=== PATIENT | male | born 1930 | race Caucasian/White ===

== ENCOUNTER → 2016-11-03 | Outpatient (CLI) | payer BC ==
[~2016-11-03] MED LIST: ALBU0.08 INH; ASPI81TA25 PO; ATEN-173 PO; BRIN1SUS OPR; CETI10TA10 PO; CLC100 PO; CZR50 PO; DLD2 PO; FLM4 PO; FURO40TA3 PO; MOME100A INH; MRLP17X PO; MULT-506 PO; POTA-327 PO; RXC5 PO; SIMV10TA2 PO; TRVOPS OPR; VANC1INJ10 IV.
[2016-11-03 13:43] LABS: BLOOD UREA NITROGEN 29 mg/dl (7-18); BUN/CREATININE RATIO 15.1 (10-20); CALCIUM 9.4 mg/dl (8.5-10.1); CARBON DIOXIDE 26 mmol/L (21-32); CHLORIDE 107 mmol/L (98-107); GLUCOSE 96 mg/dl (70-99); MAGNESIUM 2.4 mg/dl (1.8-2.4); POTASSIUM 4.6 mmol/L (3.5-5.1); SODIUM 140 mmol/L (136-145)
== END | disposition home or self-care (01) ==
LOC: C.LABPVFM 08:30
PROVIDERS: ATTEND Family Medicine
DX: N18.3 Chronic kidney disease, stage 3 (moderate) (principal)

== ENCOUNTER → 2016-11-17 | Outpatient (CLI) | payer BC ==
--- NOTE | 2016-11-17 12:37 | DIAGNOSTIC IMAGING REPORT ---
Soft tissue neck ULTRASOUND HISTORY: Mass HX MALIGNANT Melanoma, actinic Keratosis, neoplasm COMPARISON: None. FINDINGS: Ultrasound of the posterior neck is performed site of clinically palpable abnormality. No ultrasonic abnormalities are identified IMPRESSION: Normal soft tissue ultrasound. No evidence for mass or collection by ultrasound criteria Electronically signed by: Reece Silva M.D. 11/17/2016 12:36 PM Dictated Date/Time: 11/17/2016 12:34 PM
== END | disposition home or self-care (01) ==
LOC: C.ULTR 11:59
PROVIDERS: ATTEND Dermatology
DX: Z85.820 Personal history of malignant melanoma of skin (principal); L57.0 Actinic keratosis; D48.5 Neoplasm of uncertain behavior of skin

== ENCOUNTER → 2017-01-19 | Outpatient (CLI) | payer BC ==
[~2017-01-19] MED LIST changes: -DLD2 PO; +HYDR2TAB3 PO
[2017-01-19 13:11] LABS: ALT/SGPT 39 U/L (12-78); BLOOD UREA NITROGEN 42 mg/dl (7-18); BUN/CREATININE RATIO 21.2 (10-20); CARBON DIOXIDE 23 mmol/L (21-32); CHLORIDE 107 mmol/L (98-107); GLUCOSE 121 mg/dl (70-99); POTASSIUM 4.5 mmol/L (3.5-5.1); SODIUM 139 mmol/L (136-145)
[2017-01-19 13:14] LABS: ALB/GLOB RATIO 0.9 (0.9-2); ALKALINE PHOSPHATASE 138 U/L (45-117); AST/SGOT 33 U/L (15-37)
[2017-01-19 13:34] LABS: CALCIUM 8.9 mg/dl (8.5-10.1)
== END | disposition home or self-care (01) ==
LOC: C.LABPVFM 07:47
PROVIDERS: ATTEND Internal Medicine Nephrology
DX: I10 Essential (primary) hypertension (principal); N18.3 Chronic kidney disease, stage 3 (moderate); E87.1 Hypo-osmolality and hyponatremia; E78.00 Pure hypercholesterolemia, unspecified

== ENCOUNTER → 2017-03-06 | Outpatient (CLI) | payer BC ==
[~2017-03-06] MED LIST changes: +DLD2 PO; -HYDR2TAB3 PO
--- NOTE | 2017-03-06 12:02 | DIAGNOSTIC IMAGING REPORT ---
CHEST 2 VIEWS ROUTINE CLINICAL HISTORY: Cough. Bilateral rales. COMPARISON STUDY: 01/04/2016 FINDINGS: The heart is mildly enlarged. There is mild elevation/eventration of the right hemidiaphragm. There is no failure. There is no focal pulmonary consolidation. There are no pleural effusions. Left axillary calcifications are again evident.[ IMPRESSION: No active disease in the chest. Electronically signed by: Julio C Childs M.D. 03/06/2017 12:01 PM Dictated Date/Time: 03/06/2017 12:00 PM
== END | disposition home or self-care (01) ==
LOC: C.RADPV 11:45
PROVIDERS: ATTEND Neuromusculoskeletal Medicine & OMM
DX: R09.89 Other specified symptoms and signs involving the circulatory and respiratory systems (principal); R05 Cough; J22 Unspecified acute lower respiratory infection

== ENCOUNTER → 2017-04-06 | Outpatient (CLI) | payer BC ==
[2017-04-06 12:24] LABS: BASO % 0.4 %; BASO ABS # 0.03 K/uL (0-0.2); COMPLETE YES; EOS % 4.7 %; HEMATOCRIT 44.2 % (42-52); IG% 0.3 %; LYMPH ABS # 1.82 K/uL (1.2-3.4); MEAN CELL VOLUME 99.5 fL (80-100); MEAN CORPUSCULAR HEMOGLOBIN 31.8 pg (25-34); MEAN CORPUSCULAR HGB CONC 31.9 g/dl (32-36); MONO % 9.8 %; NEUT % 58.8 %; PLATELET COUNT 290 K/uL (130-400); RED BLOOD COUNT 4.44 M/uL (4.7-6.1); WHITE BLOOD COUNT 7.01 K/uL (4.8-10.8)
[2017-04-06 13:13] LABS: URINE PROTIEN/CREAT RATIO 0.2 (0-0.2); URINE TOTAL PROTEIN 13.4 mg/dl (0-11.9)
[2017-04-06 13:19] LABS: BLOOD UREA NITROGEN 23 mg/dl (7-18); BUN/CREATININE RATIO 14.3 (10-20); CALCIUM 8.8 mg/dl (8.5-10.1); CARBON DIOXIDE 23 mmol/L (21-32); CHLORIDE 102 mmol/L (98-107); GLUCOSE 116 mg/dl (70-99); MAGNESIUM 2.4 mg/dl (1.8-2.4); PHOSPHORUS 3.8 mg/dl (2.5-4.9); POTASSIUM 4.5 mmol/L (3.5-5.1); SODIUM 131 mmol/L (136-145)
== END | disposition home or self-care (01) ==
LOC: C.LABPVFM 08:28
PROVIDERS: ATTEND Internal Medicine Nephrology
DX: N18.3 Chronic kidney disease, stage 3 (moderate) (principal)

== ENCOUNTER → 2017-08-03 | Outpatient (CLI) | payer BC ==
[~2017-08-03] MED LIST changes: -DLD2 PO; +HYDR2TAB3 PO
[2017-08-03 13:48] LABS: BLOOD UREA NITROGEN 36 mg/dl (7-18); BUN/CREATININE RATIO 18.6 (10-20); CALCIUM 8.6 mg/dl (8.5-10.1); CARBON DIOXIDE 25 mmol/L (21-32); CHLORIDE 103 mmol/L (98-107); CREATININE 1.95 mg/dl (0.60-1.40); GLUCOSE 128 mg/dl (70-99); MAGNESIUM 2.4 mg/dl (1.8-2.4); POTASSIUM 4.8 mmol/L (3.5-5.1); SODIUM 134 mmol/L (136-145)
[2017-08-03 13:49] LABS: PHOSPHORUS 4.3 mg/dl (2.5-4.9)
== END | disposition home or self-care (01) ==
LOC: C.LABPVFM 08:52
PROVIDERS: ATTEND Internal Medicine Nephrology
DX: N18.4 Chronic kidney disease, stage 4 (severe) (principal)

== ENCOUNTER 2020-05-07 14:48 | Inpatient (IN) ==
[2020-05-07] MEDS ORDERED: MoRPHine SULFATE 4 MG/ML 1 ML CARP\\VIAL IV PRN (15:07)
[2020-05-07] MEDS ORDERED: SODIUM CHLORIDE 0.9% 500 ML IV ONE (15:07)
[2020-05-07] MEDS ORDERED: ONDANSETRON INJ 2 MG/ML 2 ML VIAL IV STA (15:07)
--- NOTE | 2020-05-07 15:16 | Emergency Department Note ---
History of Present Illness General Chief complaint: Flank Pain Stated complaint: RT FLANK PAIN Time Seen by Provider: 05/07/20 14:57 History of Present Illness Maximum Pain Intensity: 9 89-year-old male who was referred to the emergency department by his household chores (Dr. Wolf) for evaluation of severe right flank pain. The patient has a history of stage III chronic kidney disease. He denies history of kidney stones. The patient reports that he has had intermittent pain for the past month, but the pain has worsened and become more constant over the past week. He denies any fever or chills, nausea, abdominal pain, chest pain or shortness of breath. The patient denies any alleviating or aggravating factors for the pain. The daughter reports that his urine has looked darker than usual. He denies any urinary frequency or urgency. The patient reports that he has had a poor appetite as well. He rates his discomfort a 9 out of 10. Home Medications Home Medications Medication Instructions Recorded Confirmed Type aspirin 81 mg tablet,delayed 81 mg PO DAILY 04/03/19 05/07/20 History release travoprost 0.004 % eye drops 1 drops OPR QPM 04/04/19 05/07/20 History albuterol sulfate 90 mcg/actuation 1 - 2 puffs INHALATION QAM PRN #1 07/15/19 05/07/20 History aerosol inhaler gm Azopt 1 drp OPHTHALMIC (EYE) BID 09/05/19 05/07/20 History docusate sodium [Stool Softener] 100 mg PO QPM PRN 09/05/19 05/07/20 History losartan 50 mg PO QAM 09/05/19 05/07/20 History ipratropium 0.5 mg-albuterol 3 mg 3 ml INH QID #360 ml 11/04/19 05/07/20 Rx (2.5 mg base)/3 mL nebulization soln tramadol 50 mg tablet 50 mg PO Q6H PRN #30 tab 11/13/19 05/07/20 Rx atenolol 25 mg tablet 25 mg PO HS #90 tab 11/19/19 05/07/20 Rx furosemide 80 mg tablet 80 mg PO QAM #180 tab 11/19/19 05/07/20 Rx trazodone 50 mg tablet 50 mg PO HS #90 tab 12/13/19 05/07/20 Rx linaclotide 290 mcg capsule 290 mcg PO DAILY #30 cap 03/18/20 05/07/20 Rx citalopram 10 mg tablet 10 mg PO DAILY #30 tab 04/06/20 05/07/20 Rx furosemide 40 mg tablet 40 mg PO QAM #90 tab 04/08/20 05/07/20 Rx simvastatin 10 mg tablet 10 mg PO HS #90 tab 05/05/20 05/07/20 Rx calcitriol 0.5 mcg PO 3XWK 05/07/20 05/07/20 History Allergies Allergy/AdvReac Type Severity Reaction Status Date / Time alfuzosin [From Uroxatral] Allergy PENILE Verified 05/07/20 19:28 SWELLING gabapentin [From Neurontin] AdvReac Severe fluid Verified 05/07/20 14:15 retention latex AdvReac Unknown RED PLUMMER Verified 05/07/20 14:15 ON SKIN Past Med/Surg History Medical History Balance problem uses walker Balanitis Basal cell carcinoma of skin of face HX OF Chronic diastolic CHF (congestive heart failure) Chronic kidney disease, stage IV (severe) under surveillance; baseline creatinine 2-2.3 range History of basal cell carcinoma History of glaucoma History of neoplasm of uncertain behavior of skin History of pneumonia Hx of cataract Hypercholesterolemia Hyponatremia HISTORY OF Malignant melanoma of back Restrictive lung disease Secondary hyperparathyroidism Surgical History History of back surgery MULTIPLE, + FUSION HX History of bilateral knee arthroplasty History of carpal tunnel surgery of left wrist History of carpal tunnel surgery of right wrist History of colonoscopy History of repair of left rotator cuff History of repair of right rotator cuff History of repair of rotator cuff History of shoulder surgery History of surgical procedure Hand incision tendon sheath of a finger History of tonsillectomy S/P cervical spinal fusion 09/16/19 Dr. Kip Toney- #1 anterior cervical discectomy with bilateral foraminotomies C3 and C4. #2 anterior cervical arthrodesis C3-C4. #3 placement of Spira 8 mm cage filled with DBM at C3-4 and #4 application of andrade plate and screws across C3-4 Status post repair of nerve History of decompression median nerve at carpal tunnel Family History Mother Coronary heart disease Diabetes Myocardial infarction Father Squamous cell carcinoma of skin Denies family history of Ovarian cancer Prostate cancer Breast cancer Colorectal cancer Social History Smoking Status: Unknown if ever smoked Age Started Using Tobacco: 22; Age Quit Using Tobacco: 82; packs per day: 1; Hx Alcohol Use: No Hx Substance Use: No Preferred Language: Bur[place]ian Communication Ability: Effective Visual Impairment: No Limitations Communications Agent Required: No Beliefs That Will Affect Care: None marital status: Current Living Situation: Spouse current occupational status: retired Other Information That Helps Us Care for You: No Feels Safe at Home: Yes Safety Concerns: Feels Safe At This Time caffeine: Yes Dental Care, Regularly: Yes Physical Activity Frequency: Does not Exercise Seatbelt Use: always Sunscreen Use: Yes Review of Systems 10 system review was performed and was negative except for pertinent positives and negatives as indicated in history of present illness Physical Exam Vital Signs Vital Signs - 24 hr 05/07/20 14:53 05/07/20 15:38 05/07/20 15:40 Temperature 36.3 C L Temperature Source Oral Pulse Rate 82 87 79 Pulse Rate [Finger] Pulse Rate from SpO2 Sensor 85 84 Pulse Rhythm Regular Pulse Strength Normal Respiratory Rate 18 17 17 Respiratory Effort / Characteristics Non-Labored Spontaneous Respiratory Depth Normal Respiratory Pattern Regular Blood Pressure 104/56 L Blood Pressure [Right Arm] Blood Pressure Mean 72 Blood Pressure Mean [Right Arm] Blood Pressure Position Sitting Pulse Oximetry 99 97 Oxygen Delivery Method Room Air Room Air Room Air Sepsis Recent Fever Within 48 Hours No Sepsis New/Unexplained Change in Mental Status N/A Sepsis Action Taken by Nursing No Action Required 05/07/20 15:50 05/07/20 16:01 05/07/20 16:10 Temperature Temperature Source Pulse Rate 75 75 83 Pulse Rate [Finger] Pulse Rate from SpO2 Sensor 80 77 Pulse Rhythm Pulse Strength Respiratory Rate 10 L 18 11 L Respiratory Effort / Characteristics Respiratory Depth Respiratory Pattern Blood Pressure Blood Pressure [Right Arm] Blood Pressure Mean Blood Pressure Mean [Right Arm] Blood Pressure Position Pulse Oximetry 97 98 Oxygen Delivery Method Room Air Room Air Room Air Sepsis Recent Fever Within 48 Hours Sepsis New/Unexplained Change in Mental Status Sepsis Action Taken by Nursing 05/07/20 16:25 05/07/20 16:30 05/07/20 16:41 Temperature Temperature Source Pulse Rate 81 82 86 Pulse Rate [Finger] Pulse Rate from SpO2 Sensor 80 79 89 Pulse Rhythm Pulse Strength Respiratory Rate 12 25 H Respiratory Effort / Characteristics Respiratory Depth Respiratory Pattern Blood Pressure Blood Pressure [Right Arm] Blood Pressure Mean Blood Pressure Mean [Right Arm] Blood Pressure Position Pulse Oximetry 99 98 91 Oxygen Delivery Method Room Air Room Air Room Air Sepsis Recent Fever Within 48 Hours Sepsis New/Unexplained Change in Mental Status Sepsis Action Taken by Nursing 05/07/20 16:44 05/07/20 16:45 05/07/20 16:50 Temperature Temperature Source Pulse Rate 85 82 Pulse Rate [Finger] 86 Pulse Rate from SpO2 Sensor 85 85 Pulse Rhythm Pulse Strength Respiratory Rate 19 21 15 Respiratory Effort / Characteristics Non-Labored Spontaneous Respiratory Depth Normal Respiratory Pattern Regular Blood Pressure 82/44 L Blood Pressure [Right Arm] 75/44 L Blood Pressure Mean 62 Blood Pressure Mean [Right Arm] 54 Blood Pressure Position Pulse Oximetry 98 98 98 Oxygen Delivery Method Room Air Room Air Room Air Sepsis Recent Fever Within 48 Hours Sepsis New/Unexplained Change in Mental Status Sepsis Action Taken by Nursing 05/07/20 16:57 05/07/20 17:00 05/07/20 17:08 Temperature Temperature Source Pulse Rate 80 77 74 Pulse Rate [Finger] Pulse Rate from SpO2 Sensor 85 79 81 Pulse Rhythm Pulse Strength Respiratory Rate 18 18 16 Respiratory Effort / Characteristics Respiratory Depth Respiratory Pattern Blood Pressure 79/45 L 79/39 L 92/52 L Blood Pressure [Right Arm] Blood Pressure Mean 57 51 55 Blood Pressure Mean [Right Arm] Blood Pressure Position Pulse Oximetry 99 99 96 Oxygen Delivery Method Room Air Room Air Room Air Sepsis Recent Fever Within 48 Hours Sepsis New/Unexplained Change in Mental Status Sepsis Action Taken by Nursing 05/07/20 17:11 05/07/20 17:12 05/07/20 17:15 Temperature Temperature Source Pulse Rate 80 77 80 Pulse Rate [Finger] Pulse Rate from SpO2 Sensor 77 83 74 Pulse Rhythm Pulse Strength Respiratory Rate 17 17 14 Respiratory Effort / Characteristics Respiratory Depth Respiratory Pattern Blood Pressure 98/65 L 99/60 L Blood Pressure [Right Arm] Blood Pressure Mean 82 65 Blood Pressure Mean [Right Arm] Blood Pressure Position Pulse Oximetry 98 98 99 Oxygen Delivery Method Room Air Room Air Room Air Sepsis Recent Fever Within 48 Hours Sepsis New/Unexplained Change in Mental Status Sepsis Action Taken by Nursing 05/07/20 17:20 05/07/20 17:24 05/07/20 17:30 Temperature Temperature Source Pulse Rate 85 84 82 Pulse Rate [Finger] Pulse Rate from SpO2 Sensor 80 83 82 Pulse Rhythm Pulse Strength Respiratory Rate 16 10 L 15 Respiratory Effort / Characteristics Respiratory Depth Respiratory Pattern Blood Pressure 91/56 L 89/62 L Blood Pressure [Right Arm] Blood Pressure Mean 72 65 Blood Pressure Mean [Right Arm] Blood Pressure Position Pulse Oximetry 98 97 96 Oxygen Delivery Method Room Air Room Air Room Air Sepsis Recent Fever Within 48 Hours Sepsis New/Unexplained Change in Mental Status Sepsis Action Taken by Nursing 05/07/20 17:41 05/07/20 17:45 05/07/20 17:50 Temperature Temperature Source Pulse Rate 87 86 87 Pulse Rate [Finger] Pulse Rate from SpO2 Sensor 85 86 86 Pulse Rhythm Pulse Strength Respiratory Rate 19 14 21 Respiratory Effort / Characteristics Respiratory Depth Respiratory Pattern Blood Pressure 95/64 L Blood Pressure [Right Arm] Blood Pressure Mean 72 Blood Pressure Mean [Right Arm] Blood Pressure Position Pulse Oximetry 97 97 97 Oxygen Delivery Method Room Air Room Air Room Air Sepsis Recent Fever Within 48 Hours Sepsis New/Unexplained Change in Mental Status Sepsis Action Taken by Nursing 05/07/20 18:00 05/07/20 18:11 05/07/20 18:28 Temperature Temperature Source Pulse Rate 78 80 Pulse Rate [Finger] Pulse Rate from SpO2 Sensor 82 87 77 Pulse Rhythm Pulse Strength Respiratory Rate 13 20 Respiratory Effort / Characteristics Respiratory Depth Respiratory Pattern Blood Pressure 86/59 L Blood Pressure [Right Arm] Blood Pressure Mean 74 Blood Pressure Mean [Right Arm] Blood Pressure Position Pulse Oximetry 97 98 Oxygen Delivery Method Room Air Room Air Room Air Sepsis Recent Fever Within 48 Hours Sepsis New/Unexplained Change in Mental Status Sepsis Action Taken by Nursing 05/07/20 18:30 05/07/20 18:41 Temperature Temperature Source Pulse Rate Pulse Rate [Finger] Pulse Rate from SpO2 Sensor 74 78 Pulse Rhythm Pulse Strength Respiratory Rate Respiratory Effort / Characteristics Respiratory Depth Respiratory Pattern Blood Pressure 92/55 L Blood Pressure [Right Arm] Blood Pressure Mean 58 Blood Pressure Mean [Right Arm] Blood Pressure Position Pulse Oximetry 98 95 Oxygen Delivery Method Room Air Room Air Sepsis Recent Fever Within 48 Hours Sepsis New/Unexplained Change in Mental Status Sepsis Action Taken by Nursing CONSTITUTIONAL: Healthy and well nourished. Patient appears in moderately severe discomfort. He does not appear toxic. HEENT: Normocephalic, atraumatic. Pupils equal, round and reactive. No scleral icterus or conjunctival injection. Ears and nares are clear. No tonsillar hypertrophy or posterior pharyngeal erythema. Mucous membranes are dry. NECK: Full active range of motion without discomfort. LYMPHATICS: No cervical chain adenopathy. RESPIRATORY: Clear to auscultation bilaterally with no wheezing, crackles, rhonchi or stridor. CARDIOVASCULAR: Regular rate and rhythm with no murmurs, rubs or gallops. GASTROINTESTINAL: Bowel sounds present in all quadrants. No abdominal tenderness to palpation moderate. Negative Jean-Baptiste sign. Negative McBurney's point tenderness. Patient has a dramatically positive right CVA tenderness. MUSCULOSKELETAL: Patient has no tenderness to palpation through the central thoracolumbar spine or paraspinous muscles. INTEGUMENTARY: No rash or other significant dermatologic conditions noted. The patient specifically does not have a dermatomal rash of the right posterior torso/lower back/flank. HEMATOLOGIC: No ecchymosis or petechiae. PSYCHIATRIC: Positive affect. NEUROLOGIC: No focal neurologic deficits noted. Course Course Patient history and physical exam were performed. Nurse's notes were reviewed. Vital signs were reviewed. The patient is afebrile and not tachycardic. Patient is mildly hypotensive at 104/56. It is noted that the patient has had significant hypotension since February 2020. IV access was established, and labs were drawn. The patient was hydrated with a normal saline 500 cc bolus. He was also administered a small amount of IV morphine and Zofran. Review of labs shows a sodium of 132; it is noted that the patient is usually hyponatremic at baseline. BUN and creatinine are 90 and 2.66; again, this is relatively baseline for the patient. Alkaline phosphatase is elevated at 163, otherwise LFTs, total bilirubin and lipase are normal. Urinalysis is completely unremarkable without hematuria, protein, glucose, nitrites or leukocyte esterase. A portable chest x-ray did not show any consolidations, evidence for failure or significant cardiomegaly. Noncontrast CT of the abdomen and pelvis shows a distended gallbladder without cholelithiasis. Radiologist questions the possibility of a small punctate calcification of the distal common bile duct region, concerning for choledocholithiasis. Did frequently reevaluate the patient as his systolic blood pressure was in the mid 70s to upper 90s while in the emergency department. The patient was hydrated with a total 2 L normal saline. PRN order for fentanyl was also ordered as patient did not have any significant pain relief with the initial IV morphine. The case was also discussed with Dr. Hackett, ED attending physician, who helped to formulate plan of care, and also independently evaluated the patient. The patient was ordered Zosyn 4.5 g IV infusion. The case was then further discussed with Dr. Seals, [facility] hospitalist, who also evaluated the patient for admission. Please see his dictation for further treatment and final disposition. An ECG was ordered for possible preoperative considerations; the ECG had not been completed prior to this dictation. Administered Medications Hydromorphone HCl (Hydromorphone Inj 0.5 Mg/0.5 Ml Syr) 0.5 mg IV Q1H PRN PRN Reason: Pain Stop: 05/21/20 19:22 Last Admin: 05/07/20 19:53 Dose: 0.5 mg Documented by: [id number] Miscellaneous Information (Piperacill/Tazobac Consult Active) 1 ea N/A UD PRN PRN Reason: Consult Stop: 06/06/20 17:23 Last Admin: 05/07/20 17:55 Dose: 1 ea Documented by: [id number] Discontinued Medications Sodium Chloride (Nss) 500 mls @ 999 mls/hr IV .Q31M ONE Stop: 05/07/20 15:37 Last Infusion: 05/07/20 16:03 Dose: 0 mls/hr Documented by: [id number] Admin: 05/07/20 15:30 Dose: 999 mls/hr Documented by: [id number] Sodium Chloride (Nss 1000ml) 500 mls @ 999 mls/hr IV .Q31M ONE Stop: 05/07/20 17:29 Last Infusion: 05/07/20 18:05 Dose: 0 mls/hr Documented by: [id number] Admin: 05/07/20 17:11 Dose: 999 mls/hr Documented by: [id number] Piperacillin Sod/Tazobactam Sod (Zosyn) 4.5 gm in 120 mls @ 240 mls/hr IV NOW ONE Stop: 05/07/20 17:53 Last Infusion: 05/07/20 19:29 Dose: 240 mls/hr Documented by: [id number] Infusion: 05/07/20 19:09 Dose: 240 mls/hr Documented by: [id number] Infusion: 05/07/20 18:06 Dose: 0 mls/hr Documented by: [id number] Admin: 05/07/20 17:55 Dose: 240 mls/hr Documented by: [id number] Sodium Chloride (Nss 1000ml) 500 mls @ 500 mls/hr IV .Q1H ONE Stop: 05/07/20 20:38 Last Infusion: 05/07/20 20:52 Dose: 500 mls/hr Documented by: [id number] Admin: 05/07/20 19:52 Dose: 500 mls/hr Documented by: [id number] Miscellaneous (Linaclotide~Order Awaiting Action) 1 ea N/A QS MITRA Stop: 06/06/20 19:33 Last Admin: 05/07/20 19:53 Dose: Not Given Documented by: [id number] Morphine Sulfate (Morphine Sulfate 4 Mg/Ml 1 Ml Carp\Vial) 2 mg IV Q15M PRN PRN Reason: Pain Stop: 05/21/20 15:06 Last Admin: 05/07/20 15:30 Dose: 2 mg Documented by: [id number] Morphine Sulfate (Morphine Sulfate 2 Mg/Ml Carp) Confirm Administered Dose 2 mg .ROUTE .STK-MED ONE Stop: 05/07/20 15:28 Last Admin: 05/07/20 15:30 Dose: Not Given Documented by: [id number] Ondansetron HCl (Ondansetron Inj 2 Mg/Ml 2 Ml Vial) 4 mg IV NOW STA Stop: 05/07/20 15:08 Last Admin: 05/07/20 15:30 Dose: 4 mg Documented by: [id number] Medical Decision Making Medical Records Attestation: I reviewed the patient's medical records. Home Medications Current Medication List: was personally reviewed by me Laboratory Data Attestation: I reviewed the patient's lab results. Result diagrams: 05/07/20 15:20 05/07/20 15:20 Lab Results 05/07/20 05/07/20 05/07/20 Range/Units 15:20 15:20 15:20 WBC 6.91 (4.8-10.8) K/uL RBC 4.21 L (4.7-6.1) M/uL Hgb 14.9 (14.0-18.0) g/dL Hct 42.0 (42-52) % MCV 99.8 (80-100) fL MCH 35.4 H (25-34) pg MCHC 35.5 (32-36) g/dL RDW Std Deviation 49.3 H (36.4-46.3) fL RDW Coeff of Cathy 13.6 (11.5-14.5) % Plt Count 228 (130-400) K/uL MPV 11.2 H (7.4-10.4) fL Immature Gran % (Auto) 0.1 % Neut % (Auto) 66.6 % Lymph % (Auto) 23.2 % [place] % (Auto) 8.5 % Eos % (Auto) 1.3 % Baso % (Auto) 0.3 % Neut # (Auto) 4.60 (1.4-6.5) K/uL Lymph # (Auto) 1.60 (1.2-3.4) K/uL [place] # (Auto) 0.59 (0.11-0.59) K/uL Eos # (Auto) 0.09 (0-0.5) K/uL Baso # (Auto) 0.02 (0-0.2) K/uL Immature Gran # (Auto) 0.01 (0.00-0.02) K/uL PT (9.0-12.0) Seconds INR (0.9-1.1) APTT (21.0-31.0) Seconds PTT Ratio Sodium 132 L (136-145) mmol/L Potassium 3.7 (3.5-5.1) mmol/L Chloride 98 (98-107) mmol/L Carbon Dioxide 22 (21-32) mmol/L Anion Gap 12.0 H (3-11) BUN 90 H (7-18) mg/dl Creatinine 2.66 H (0.6-1.4) mg/dl Est Cr Clr Drug Dosing Not Reportable Est GFR ( Amer) 23.9 Est GFR (Non-Af Amer) 20.6 BUN/Creatinine Ratio 33.9 H (10-20) Glucose 91 (70-99) mg/dl Calcium 9.3 (8.5-10.1) mg/dl Total Bilirubin 1.0 (0.2-1) mg/dl AST 37 (15-37) U/L ALT 43 (12-78) U/L Alkaline Phosphatase 163 H (45-117) U/L NT-Pro-B Natriuret Pep 63288 H (0-1800) pg/ml Total Protein 8.1 (6.4-8.2) gm/dl Albumin 3.9 (3.4-5.0) gm/dl Globulin 4.2 H (2.5-4.0) gm/dl Albumin/Globulin Ratio 0.9 (0.9-2) Lipase 161 (73-393) U/L Urine Color Urine Appearance (Clear) Urine pH (4.5-7.5) Ur Specific [place] (1.000-1.030) Urine Protein (Negative) Urine Glucose (UA) (Negative) Urine Ketones (Negative) Urine Blood (Negative) Urine Nitrite (Negative) Urine Bilirubin (Negative) Urine Urobilinogen (Negative) Ur Leukocyte Esterase (Negative) 05/07/20 05/07/20 Range/Units 15:20 16:07 WBC (4.8-10.8) K/uL RBC (4.7-6.1) M/uL Hgb (14.0-18.0) g/dL Hct (42-52) % MCV (80-100) fL MCH (25-34) pg MCHC (32-36) g/dL RDW Std Deviation (36.4-46.3) fL RDW Coeff of Cathy (11.5-14.5) % Plt Count (130-400) K/uL MPV (7.4-10.4) fL Immature Gran % (Auto) % Neut % (Auto) % Lymph % (Auto) % [place] % (Auto) % Eos % (Auto) % Baso % (Auto) % Neut # (Auto) (1.4-6.5) K/uL Lymph # (Auto) (1.2-3.4) K/uL [place] # (Auto) (0.11-0.59) K/uL Eos # (Auto) (0-0.5) K/uL Baso # (Auto) (0-0.2) K/uL Immature Gran # (Auto) (0.00-0.02) K/uL PT 11.6 (9.0-12.0) Seconds INR 1.1 (0.9-1.1) APTT 31.0 (21.0-31.0) Seconds PTT Ratio 1.1 Sodium (136-145) mmol/L Potassium (3.5-5.1) mmol/L Chloride (98-107) mmol/L Carbon Dioxide (21-32) mmol/L Anion Gap (3-11) BUN (7-18) mg/dl Creatinine (0.6-1.4) mg/dl Est Cr Clr Drug Dosing Est GFR ( Amer) Est GFR (Non-Af Amer) BUN/Creatinine Ratio (10-20) Glucose (70-99) mg/dl Calcium (8.5-10.1) mg/dl Total Bilirubin (0.2-1) mg/dl AST (15-37) U/L ALT (12-78) U/L Alkaline Phosphatase (45-117) U/L NT-Pro-B Natriuret Pep (0-1800) pg/ml Total Protein (6.4-8.2) gm/dl Albumin (3.4-5.0) gm/dl Globulin (2.5-4.0) gm/dl Albumin/Globulin Ratio (0.9-2) Lipase (73-393) U/L Urine Color Yellow Urine Appearance Clear (Clear) Urine pH 5.0 (4.5-7.5) Ur Specific [place] 1.010 (1.000-1.030) Urine Protein Negative (Negative) Urine Glucose (UA) Negative (Negative) Urine Ketones Negative (Negative) Urine Blood Negative (Negative) Urine Nitrite Negative (Negative) Urine Bilirubin Negative (Negative) Urine Urobilinogen Negative (Negative) Ur Leukocyte Esterase Negative (Negative) Imaging Data Attestation: I personally reviewed and interpreted this imaging study as follows: My Impression: My interpretation of a portable chest x-ray does not show any consolidations, pneumothorax or failure pattern. Mild cardiomegaly is noted. My interpretation of a noncontrast CT of the abdomen and pelvis shows a distended gallbladder without evidence for cholelithiasis. Radiologist does question a possible punctate calcification of the distal common bile duct, with mild common bile duct dilatation. Radiologist's Impression: XR chest 1V portable CLINICAL HISTORY: R flank pain - h/o CHF COMPARISON STUDY: 05/23/2019 FINDINGS: The heart is mildly enlarged. There is no failure. There is no focal pulmonary consolidation. There are no pleural effusions. Opacities within the right midlung zone are felt to represent a bony summation with ribs. Old rib trauma is suspected. There are persistent calcifications in the left axillary region..[ IMPRESSION: No active disease in the chest. ABDOMEN AND PELVIS CT WITHOUT CONTRAST CT DOSE: 397.17 mGycm HISTORY: Acute right-sided flank pain in a patient with history of chronic kidney disease R flank pain - CKD III TECHNIQUE: Multiaxial CT images of the abdomen and pelvis were performed without contrast. A dose lowering technique was utilized adhering to the principles of ALARA. COMPARISON STUDY: Chest radiograph of same day, CT abdomen and pelvis 08/21/2015 FINDINGS: Mild scarring versus atelectasis of the right lung base. Minimal mucus plugging of the right lung base. No pneumatosis or pneumoperitoneum. Moderate cardiomegaly with coronary artery calcifications. Calcified granulomata of the spleen. Moderate generalized pancreatic atrophy. Unremarkable adrenal glands. Distended gallbladder without cholelithiasis. There is a 1 mm calcification noted within the region of the inferior common bile duct on image 26 series 3. Common bile duct is mildly dilated at 10 mm. This previously measured approximately 9 mm in 2016. Kidneys are unremarkable. No renal or ureteral calculi or obstructive uropathy. Prostamegaly with mild urinary bladder distention and wall thickening. Small fat filled bilateral inguinal hernias. Extensive calcified plaque of the abdominal aorta without aneurysm. No adenopathy. No bowel obstruction or bowel wall thickening. Trace free fluid within the dep endent pelvis. Mild to moderate fecal retention. Noninflamed appendix. Mild generalized body wall edema. Tiny fat filled mid ventral abdominal wall hernia, diastases of 9 mm. Degenerative changes of the spine, pelvis and hips. Extensive postoperative changes of the spine are redemonstrated. Laminectomy changes are again noted at L4-L5 with evidence of prior hardware removal at these levels. Posterior interbody lilia and screw fusion at T12-L3. Discectomy changes at L3-L4, L4-L5 and L5-S1. The right T12 pedicle screw extends into the T11-T12 disc space. Lucency surrounds the bilateral T12 pedicle screws. No acute fracture IMPRESSION: 1. No renal or ureteral calculi or obstructive uropathy. 2. No bowel obstruction or bowel wall thickening. Normal appendix. 3. Distended gallbladder without cholelithiasis identified. Additionally, there is mild dilation of the common bile duct. A 1 mm calcification is noted within the region of the distal common bile duct. Correlate with laboratory analysis to exclude choledocholithiasis. 4. Prostamegaly with evidence of chronic bladder outlet obstruction. 5. Nonspecific trace free fluid within the dependent pelvis. 6. Posterior interbody lilia and screw fusion at T12-L3. The right T12 pedicle screw extends into the T11-T12 disc space and there is suggested loosening of the bilateral T12 screws. 7. Additional findings as above. Blood Pressure Blood Pressure Findings: Low blood pressure Blood Pressure Disposition: further management by hospitalist Additional Comments: It is noted that the patient takes Lasix 120 mg every morning likely contributing to his hypotension. MDM Narrative Patient presents to the emergency department with complaint of severe right flank pain. The patient was referred here from his household chores from an office appointment. CT imaging today is concerning for a possible choledocholithiasis. CT imaging does not show any evidence for ureteral calculi or other concerning findings of the kidneys. His urinalysis does not show evidence for infection. The patient is afebrile and has no leukocytosis to suggest other infectious etiologies. The patient also has no abdominal tenderness to palpation to suggest cholecystitis. The patient has remained hypotensive in the emergency department. He was hydrated with a liter normal saline. His hypotension may be secondary to high Lasix usage. Patient is hyponatremic, which should respond t o IV hydration. ECG is not suggestive of cardiac etiology, and chest x-ray does not show evidence for heart failure. Impression & Plan Hypotension due to medication, Acute right flank pain, Choledocholithiasis, Hyponatremia, Chronic renal disease, stage III, History of CHF (congestive heart failure) Discharge Plan Visit Data Chief Complaint: Flank Pain Stated Complaint: RT FLANK PAIN ED Provider: Espinoza Hackett ED Midlevel Provider: Kenton Boswell Discharge Problem: Hypotension due to medication, Acute right flank pain, Choledocholithiasis, Hyponatremia, Chronic renal disease, stage III, History of CHF (congestive heart failure) Patient Disposition: Admitted As Inpatient Discharge Instructions Interventions: ED Discharge Assessment Last Done: 05/07/20 19:19
[2020-05-07] MEDS ORDERED: MoRPHine SULFATE 2 MG/ML CARP ONE (15:27)
[2020-05-07 15:33] LABS: Basophils # (auto) 0.02 K/uL (0-0.2); Basophils % (auto) 0.3 %; Eosinophils # (auto) 0.09 K/uL (0-0.5); Eosinophils % (auto) 1.3 %; Hemoglobin 14.9 g/dL (14.0-18.0); Immature Granulocytes # (auto) 0.01 K/uL (0.00-0.02); Immature Granulocytes % (auto) 0.1 %; Lymphocytes % (auto) 23.2 %; Mean Corpuscular Hemoglobin 35.4 pg (25-34); Mean Corpuscular Hgb Conc 35.5 g/dL (32-36); Mean Corpuscular Volume 99.8 fL (80-100); Mean Platelet Volume 11.2 fL (7.4-10.4); Monocytes # (auto) 0.59 K/uL (0.11-0.59); Monocytes % (auto) 8.5 %; Neutrophils % (auto) 66.6 %; Platelet Count 228 K/uL (130-400); RDW Coefficient of Variation 13.6 % (11.5-14.5); RDW Standard Deviation 49.3 fL (36.4-46.3); Red Blood Count 4.21 M/uL (4.7-6.1); White Blood Count 6.91 K/uL (4.8-10.8)
--- NOTE | 2020-05-07 15:48 | XRay Report ---
XR chest 1V portable CLINICAL HISTORY: R flank pain - h/o CHF COMPARISON STUDY: 05/23/2019 FINDINGS: The heart is mildly enlarged. There is no failure. There is no focal pulmonary consolidatio n. There are no pleural effusions. Opacities within the right midlung zone are felt to represent a sera ny summation with ribs. Old rib trauma is suspected. There are persistent calcifications in the left axillary region..[ IMPRESSION: No active disease in the chest. ACT 112: Negative or not required by law. Electronically signed by: Julio C Childs M.D. 05/07/2020 3:47 PM
[2020-05-07 15:53] LABS: Alanine Aminotransferase 43 U/L (12-78); Albumin Level 3.9 gm/dl (3.4-5.0); Aspartate Aminotransferase 37 U/L (15-37); BUN Creatinine Ratio 33.9 (10-20); Blood Urea Nitrogen 90 mg/dl (7-18); Calcium 9.3 mg/dl (8.5-10.1); Carbon Dioxide 22 mmol/L (21-32); Chloride 98 mmol/L (98-107); Est GFR (African American) 23.9; Est GFR (Non-African American) 20.6; Glucose 91 mg/dl (70-99); Lipase 161 U/L (73-393); Potassium 3.7 mmol/L (3.5-5.1); Sodium 132 mmol/L (136-145)
[2020-05-07 15:56] LABS: Albumin Globulin Ratio 0.9 (0.9-2); Alkaline Phosphatase 163 U/L (45-117); Globulin 4.2 gm/dl (2.5-4.0); Total Protein 8.1 gm/dl (6.4-8.2)
[2020-05-07 16:21] LABS: Appearance Urine Clear (Clear); Bilirubin Urine Negative (Negative); Blood Urine Negative (Negative); Color Urine Yellow; Glucose Urine UA Negative (Negative); Ketones Urine Negative (Negative); Leukocyte Esterase Urine Negative (Negative); Nitrite Urine Negative (Negative); Protein Urine Negative (Negative); Urobilinogen Urine Negative (Negative)
--- NOTE | 2020-05-07 16:41 | CT Scan Report ---
ABDOMEN AND PELVIS CT WITHOUT CONTRAST CT DOSE: 397.17 mGycm HISTORY: Acute right-sided flank pain in a patient with history of chronic kidney disease R flank pa in - CKD III TECHNIQUE: Multiaxial CT images of the abdomen and pelvis were performed without contrast. A dose lo wering technique was utilized adhering to the principles of ALARA. COMPARISON STUDY: Chest radiograph of same day, CT abdomen and pelvis 08/21/2015 FINDINGS: Mild scarring versus atelectasis of the right lung base. Minimal mucus plugging of the right lung bas e. No pneumatosis or pneumoperitoneum. Moderate cardiomegaly with coronary artery calcifications. Amari cified granulomata of the spleen. Moderate generalized pancreatic atrophy. Unremarkable adrenal gland s. Distended gallbladder without cholelithiasis. There is a 1 mm calcification noted within the regio n of the inferior common bile duct on image 26 series 3. Common bile duct is mildly dilated at 10 mm. This previously measured approximately 9 mm in 2016. Kidneys are unremarkable. No renal or ureteral calculi or obstructive uropathy. Prostamegaly with mil d urinary bladder distention and wall thickening. Small fat filled bilateral inguinal hernias. Extens nithin calcified plaque of the abdominal aorta without aneurysm. No adenopathy. No bowel obstruction or bowel wall thickening. Trace free fluid within the dependent pelvis. Mild to moderate fecal retention. Noninflamed appendix. Mild generalized body wall edema. Tiny fat filled mid ventral abdominal wall hernia, diastases of 9 mm. Degenerative changes of the spine, pelvis and hips . Extensive postoperative changes of the spine are redemonstrated. Laminectomy changes are again note d at L4-L5 with evidence of prior hardware removal at these levels. Posterior interbody lilia and screw fusion at T12-L3. Discectomy changes at L3-L4, L4-L5 and L5-S1. The right T12 pedicle screw extends into the T11-T12 disc space. Lucency surrounds the bilateral T12 pedicle screws. No acute fracture IMPRESSION: 1. No renal or ureteral calculi or obstructive uropathy. 2. No bowel obstruction or bowel wall thickening. Normal appendix. 3. Distended gallbladder without cholelithiasis identified. Additionally, there is mild dilation of t he common bile duct. A 1 mm calcification is noted within the region of the distal common bile duct. Correlate with laboratory analysis to exclude choledocholithiasis. 4. Prostamegaly with evidence of chronic bladder outlet obstruction. 5. Nonspecific trace free fluid within the dependent pelvis. 6. Posterior interbody lilia and screw fusion at T12-L3. The right T12 pedicle screw extends into the T 11-T12 disc space and there is suggested loosening of the bilateral T12 screws. 7. Additional findings as above. ACT 112: Negative or not required by law. The above report was generated using voice recognition software. It may contain grammatical, syntax o r spelling errors. Electronically signed by: Malik Herron M.D. 05/07/2020 4:39 PM
[2020-05-07] MEDS ORDERED: fentaNYL citrate 100 MCG/2 ML VIAL IV PRN (16:59)
[2020-05-07] MEDS ORDERED: SODIUM CHLORIDE 0.9% 1000ML 500 ML IV ONE ×2 (16:59→19:39)
[2020-05-07] MEDS ORDERED: PIPERACILL/TAZOBAC CONSULT ACTIVE PRN (17:24)
[2020-05-07] MEDS ORDERED: PIPERACILLIN/TAZOBACTAM 4.5 GM/120 ML BAG IV ONE (17:24)
--- NOTE | 2020-05-07 18:10 | History & Physical Report ---
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 It would seem at this time that the majority of his pain originates from his back on physical exam, but may also have gallbladder involvement, too 1. Biliary tract obstruction -- DDX: choledocholithiasis -Clinically, patient reports several weeks of right flank pain that has worsened significantly over this past week. It is most notable with movement and is relieved with lying down. He presented to the emergency department earlier this evening at the advice of his gun club manager, who was concerned for nephrolithiasis. On physical examination, he was found to have a positive Jean-Baptiste sign, tenderness to palpation in the right upper quadrant, and significant right flank pain. CT abd/pelvis was significant for distended gallbladder without cholelithiasis. There was also evidence of mild dilation of the common bile duct and a 1 mm calcification in the distal common bile duct, concerning for choledocholithiasis. Alk phos was elevated to the 190s, but LFTs and bilirubin studies were normal. -Given the history, physical, imaging findings, and laboratory findings, there is concern for choledocholithiasis versus cholecystitis. As he does not have a white count, is afebrile, and otherwise has not complained of any infectious or constitutional-like symptoms, suspicion for cholangitis and cholecystitis is lower. Given no imaging findings of nephrolithiasis, this also seems unlikely. -CT as above -MRCP ordered for more in-depth evaluation of this -GI consult to evaluate need for further intervention, including ERCP -LFTs qAM -IV pain relief with Dilaudid 0.5mg PO q1h PRN -Nausea c/w Phenergan PRN 2. Possible cholecystitis - As he does not have a white count, is afebrile, and otherwise has not complained of any infectious or constitutional-like symptoms, suspicion for cholecystitis and cholangitis is lower. Given no imaging findings of nephrolithiasis, this also seems unlikely. Will await results of MRCP, can consider RUQ US if unrevealing. -Initiate IV Zosyn in the interim -Blood cultures ordered as a precautionary measure -Surgery consult in case need for cholecystectomy 3. Hypotension, with known h/o HTN -- s/p 2L NS in ED -Patient's systolic blood pressures did drop into the mid 70s while in the ED, requiring a total of 2 L of normal saline boluses to reachieve systolic pressures of the mid 90s. At this time, suspect that his hypotension is likely secondary to anorexia/dehydration plus his Lasix 120 mg p.o. qAM and losartan 50mg PO qAM, both of which he took this morning. Given his normal white count, afebrile state, and history insignificant for any constitutional symptoms within the last few weeks, lower suspicion that this is secondary to his septic process. -Given his known history of diastolic heart failure, special attention should be taken to fluid administration as so not to volume overload. -NS 500mL boluses PRN if BP <90/50 -Bladder scan qshift -Smith placed for accurate output -Hold home losartan tomorrow morning -Consider restarting lasix when normotensive 4. Back pain in setting of imaging findings concerning for potential loosening of the bilateral T12 screws -Patient describes that the pain is most centralized in his right lower flank, "is right over the kidney". He describes that the pain gets worse with movement significantly, but not with eating. This does raise the concern that the majority of his pain may be attributable to mechanical causes, including loosening of the T12 screws. There is also likely a gallbladder component. -Orthopedics consulted, will hold off on additional imaging at this time 5. Atrial fibrillation -When compared to previous EKG, the EKG obtained in the ED demonstrates suspected new-onset atrial fibrillation -TSH order placed for tomorrow AM -Cardiology consult as above -Hold pharmacologic anticoagulation at this time in setting of problems above 6. Weight loss -Patient reports approx. 20lb weight loss over the past 4 months -- reports significantly decreased appetite. No n/v/d, but does have chronic constipation -Unclear etiology at this time -- MRCP, as above, to r/o potential relationship to biliary tract obstruction 7. CKD Stage IV -Patient is closely followed by nephrology and has a baseline creatinine of 2.2- 2.4 -Hold home losartan and Lasix, as above -BMP qAM 8. Chronic diastolic heart failure -Last echocardiogram was in [id number] which displayed an EF of 50 to 55% -CXR performed in the emergency room did not show any signs of pulmonary congestion, edema, or signs of volume overload. Physical exam was not significant for any of these things either. However, he did require 1L of normal saline for fluid resuscitation in the setting of hypotension. Special attention should be paid to his fluid status during his admission, and Lasix should be used as needed. -Continue home atenolol with hold parameters -- unclear why he is on this, for HTN vs. CHF vs. other -Hold Lasix, as above -Smith, as above -Cardiology consult placed in lieu of pre-procedure evaluation 9. Depression with anxiety -Continue home citalopram 10mg PO daily -Continue home trazodone Dispo: PCU with telemetry for close monitoring of fluid status, pain, and vitals PPX: SCDs; hold off from pharmacologic ppx at this time in setting of further GI work-up Diet: NPO in lieu of possible procedure tomorrow morning Code status: DNR/DNI - this was discussed with the patient and was present during the discussion Present on Admission?: Yes (2) Chronic renal disease, stage III: (3) Obstructive sleep apnea: (4) Acute diastolic (congestive) heart failure: (5) Depression with anxiety: History of Present Illness Primary Care Provider: Yanira Newton MD Brien Garay is an 89-year-old male with a notable past medical history of diastolic heart failure (last EF 50-55% in 06/2019), CKD stage IV (Cr 2.2-2.4 mg/dL), LETHA c/w CPAP, and depression who presented to the emergency department for evaluation of right flank pain at the advice of his gun club manager. On history, the patient reports that his right flank pain has been going on for several weeks now and has gotten worse over this past week. He says that it limited his ability to walk and participate in daily activities. It is worse with ambulation and gets better with lying down. At the time of his appointment this morning, there was thought that this might be a kidney stoneof note, he has no history of kidney stones in the past. Aside from perhaps decreased urine output with known prostatomegaly, he denies any urinary frequency, urgency or dysuria. At the time of our discussion, he rated his pain at a 7 out of 10 in intensity described it is dull and subtle. Further, the patient also reports that over the last 4 months he has had a 20 pound unintentional weight loss that has been associated with a loss of appetite. He denies any nausea, vomiting, diarrhea, fevers, chills, night sweats. He denies any sort of chest pain or palpitations, but does endorse that his shortness of breath is perhaps gotten a little worse lately. His reports that he was up all night approximately 2 nights ago with more dyspnea than usual as well as a cough. He uses a CPAP during sleep. In the ED, he was found to be afebrile, tachycardic, and hypotensive with lowest systolic pressures down to the mid 70s. He received a total of 1L of normal salnie, in addition to IV morphine and Zofran. Labs were significant for hyponatremia at 132, BUN and creatinine at 90 and 2.66, respectivelywhich are relatively normal for the patientand alkaline phosphatase elevated to 163, but otherwise normal LFTs, bilirubin, and lipase. CBC did not demonstrate an elevated white count or signs of anemia. Urinalysis was unremarkable. Chest x- ray did not show any signs of fluid overload or any acute processes. No ncontrast CT of the abdomen and pelvis was obtained, which did show a distended gallbladder without any obvious cholelithiasis, but also a small calcification in the distal dilated common bile duct that raise radiographic concern for choledocholithiasis. This scan was also significant for prostatomegaly with evidence of chronic bladder outlet obstruction, as well as potential loosening of bilateral T12 screws. Further, an EKG was obtained and when compared to previous EKGs, was suggestive of new atrial fibrillation. Allergies Allergy/AdvReac Type Severity Reaction Status Date / Time alfuzosin [From Uroxatral] Allergy PENILE Verified 05/07/20 19:28 SWELLING gabapentin [From Neurontin] AdvReac Severe fluid Verified 05/07/20 14:15 retention latex AdvReac Unknown RED PLUMMER Verified 05/07/20 14:15 ON SKIN Home Medications Home Medications Medication Instructions Recorded Confirmed Type aspirin 81 mg tablet,delayed 81 mg PO DAILY 04/03/19 05/07/20 History release travoprost 0.004 % eye drops 1 drops OPR QPM 04/04/19 05/07/20 History albuterol sulfate 90 mcg/actuation 1 - 2 puffs INHALATION QAM PRN #1 07/15/19 05/07/20 History aerosol inhaler gm Azopt 1 drp OPHTHALMIC (EYE) BID 09/05/19 05/07/20 History docusate sodium [Stool Softener] 100 mg PO QPM PRN 09/05/19 05/07/20 History losartan 50 mg PO QAM 09/05/19 05/07/20 History ipratropium 0.5 mg-albuterol 3 mg 3 ml INH QID #360 ml 11/04/19 05/07/20 Rx (2.5 mg base)/3 mL nebulization soln tramadol 50 mg tablet 50 mg PO Q6H PRN #30 tab 11/13/19 05/07/20 Rx atenolol 25 mg tablet 25 mg PO HS #90 tab 11/19/19 05/07/20 Rx furosemide 80 mg tablet 80 mg PO QAM #180 tab 11/19/19 05/07/20 Rx trazodone 50 mg tablet 50 mg PO HS #90 tab 12/13/19 05/07/20 Rx linaclotide 290 mcg capsule 290 mcg PO DAILY #30 cap 03/18/20 05/07/20 Rx citalopram 10 mg tablet 10 mg PO DAILY #30 tab 04/06/20 05/07/20 Rx furosemide 40 mg tablet 40 mg PO QAM #90 tab 04/08/20 05/07/20 Rx simvastatin 10 mg tablet 10 mg PO HS #90 tab 05/05/20 05/07/20 Rx calcitriol 0.5 mcg PO 3XWK 05/07/20 05/07/20 History Past Med/Surg History Medical History Balance problem uses walker Balanitis Basal cell carcinoma of skin of face HX OF Chronic diastolic CHF (congestive heart failure) Chronic kidney disease, stage IV (severe) under surveillance; baseline creatinine 2-2.3 range History of basal cell carcinoma History of glaucoma History of neoplasm of uncertain behavior of skin History of pneumonia Hx of cataract Hypercholesterolemia Hyponatremia HISTORY OF Malignant melanoma of back Restrictive lung disease Secondary hyperparathyroidism Surgical History History of back surgery MULTIPLE, + FUSION HX History of bilateral knee arthroplasty History of carpal tunnel surgery of left wrist History of carpal tunnel surgery of right wrist History of colonoscopy History of repair of left rotator cuff History of repair of right rotator cuff History of repair of rotator cuff History of shoulder surgery History of surgical procedure Hand incision tendon sheath of a finger History of tonsillectomy S/P cervical spinal fusion 09/16/19 Dr. Kip Toney- #1 anterior cervical discectomy with bilateral foraminotomies C3 and C4. #2 anterior cervical arthrodesis C3-C4. #3 placement of Spira 8 mm cage filled with DBM at C3-4 and #4 application of andraed plate and screws across C3-4 Status post repair of nerve History of decompression median nerve at carpal tunnel Family History Mother Coronary heart disease Diabetes Myocardial infarction Father Squamous cell carcinoma of skin Denies family history of Ovarian cancer Prostate cancer Breast cancer Colorectal cancer Social History Smoking Status: Unknown if ever smoked Age Started Using Tobacco: 22; Age Quit Using Tobacco: 82; packs per day: 1; Hx Alcohol Use: No Hx Substance Use: No Preferred Language: Armenian Communication Ability: Effective Visual Impairment: No Limitations Conveyor Mechanic Required: No Beliefs That Will Affect Care: None marital status: Current Living Situation: Spouse current occupational status: retired Other Information That Helps Us Care for You: No Feels Safe at Home: Yes Safety Concerns: Feels Safe At This Time caffeine: Yes Dental Care, Regularly: Yes Physical Activity Frequency: Does not Exercise Seatbelt Use: always Sunscreen Use: Yes Review of Systems Review of Systems: As per HPI Physical Exam Constitutional: Patient is an 89-year-old ill-appearing male, lying back in his hospital bed in moderate amounts of pain. is at the bedside. He is alert and oriented during our conversation, and speaking in full sentences. Able to provide full history. Eyes: Pupils are equal and reactive to light, with normal conjunctive, and some scleral injection. ENMT: external ear and nose normal, oropharynx normal Neck: trachea midline, no thyromegaly Respiratory: Good respiratory effort without any use of accessory muscles. On auscultation, lungs are clear to auscultation bilaterally without any crackles or wheezes. Cardiovascular: Normal rate and regular rhythm. S1 and S2 are present without any murmurs rubs or gallops. Upper and lower extremity pulses are 2+ bilaterally. There is no evidence of peripheral edema in the lower extremities. Gastrointestinal (Abdomen): Normoactive bowel sounds. Abdomen is nondistended, but notably tender to palpation along the right upper and lower quadrants with an area of firmness immediately inferior and lateral to the liver. There is mild involuntary guarding with palpation. No rebound tenderness. Jean-Baptiste's positive. Of note, in the area around the right costovertebral angle, there is increased firmness and pain to palpation that extends to the mid axillary line. Skin: no rashes, warm and dry Psychiatric: Orientation: alert and oriented x 3 Results & Data Results & Data ([facility]) Vital Signs (Past 12 Hours) Vital Signs Temp Pulse Pulse Resp BP BP Pulse Ox 05/07/20 17:50 87 21 97 05/07/20 17:45 86 14 95/64 L 97 05/07/20 17:41 87 19 97 05/07/20 17:30 82 15 89/62 L 96 05/07/20 17:24 84 10 L 91/56 L 97 05/07/20 17:20 85 16 98 05/07/20 17:15 80 14 99/60 L 99 05/07/20 17:12 77 17 98/65 L 98 05/07/20 17:11 80 17 98 05/07/20 17:08 74 16 92/52 L 96 05/07/20 17:00 77 18 79/39 L 99 05/07/20 16:57 80 18 79/45 L 99 05/07/20 16:50 82 15 98 05/07/20 16:45 85 21 82/44 L 98 05/07/20 16:44 86 19 75/44 L 98 05/07/20 16:41 86 25 H 91 05/07/20 16:30 82 98 05/07/20 16:25 81 12 99 05/07/20 16:10 83 11 L 05/07/20 16:01 75 18 98 05/07/20 15:50 75 10 L 97 05/07/20 15:40 79 17 97 05/07/20 15:38 87 17 05/07/20 14:53 36.3 C L 82 18 104/56 L 99 Diagnostic Findings ABDOMEN AND PELVIS CT WITHOUT CONTRAST IMPRESSION: 1. No renal or ureteral calculi or obstructive uropathy. 2. No bowel obstruction or bowel wall thickening. Normal appendix. 3. Distended gallbladder without cholelithiasis identified. Additionally, there is mild dilation of the common bile duct. A 1 mm calcification is noted within the region of the distal common bile duct. Correlate with laboratory analysis to exclude choledocholithiasis. 4. Prostamegaly with evidence of chronic bladder outlet obstruction. 5. Nonspecific trace free fluid within the dependent pelvis. 6. Posterior interbody lilia and screw fusion at T12-L3. The right T12 pedicle screw extends into the T11-T12 disc space and there is suggested loosening of the bilateral T12 screws. 7. Additional findings as above. XR chest 1V portable IMPRESSION: No active disease in the chest. Supervising Physician Co-Signing Physician Notes I personally saw and examined the patient. I verified all bhandari points and agree with resident physician Dr Espinoza Jean with the following exceptions and/or additions: 89-year-old male who presents to the ER with 1 month of right back pain much worse over the last week. He feels it is over his kidney. Exacerbated by any movements. Relieved when he is lying down. No change with food. Advised to go to the ER on advice of his gun club manager today. No fever or chills. O/E Non-septic appearing, frail, mild distress from pain HS irregularly irregular, no murmur Chest CTAB Dry mucus membranes Right sided paraspinal tenderness on palpation around T12 level (appears to be his pain that is reproducible). Similarly reproducible pain with CVA tenderness although only need light palpation to reproduce pain. B/l chronic lower extremity reduced sensation. A/P Back/flank pain - this was his main complaint for admission which I suspect is coming from his loose screws from his back. Consult ortho. Possible this is just his MSK response to his GI pathology as below. Choledocholithiasis - Questionable diagnosis given CBD dilatation appears chronic and LFTs unremarkable/stable. MRCP pending. Trend LFTs. Consult GI for consideration of ERCP. Cholecystitis - interestingly his Jean-Baptiste's sign significantly positive but patient reports this pain is different to his main complaint of back/flank pain. Suspect he has more chronic than acute cholecystitis as afebrile and normal WBC. Continue Zosyn pending blood cultures and surgery consult in AM. Hypotension - suspect related to overdiuresis with lasix. Likely when not in urinary retention he needs less lasix for his CHF. Smith catheter placed to accurately measure output and eliminate concerns for urinary retention. Initial concern for sepsis causing this now appears less likely and if cholecystitis thought to be unlikely and blood cultures negative his antibiotics can likely be stopped. Due to concern for CHF will just give fluid boluses to maintain BP overnight. Holding all anti-hypertensives (atenolol, lasix, losartan) New onset atrial fibrillation - TSH, TTE, rate controlled (monitor closely while holding atenolol for hypotension), hold anticoagulation pending above workup, consult cardiology. Chronic urinary obstruction - noted on CT. Start tamsulosin once able with blood pressure, although possibly spinal cord compression and constipation also contributing. Appears to be partial or intermittent as bladder scan for 398ml. Chronic diastolic heart failure without exacerbation - clinically hypovolemic, hold lasix, consider switching atenolol for metoprolol succinate once BP improves. Otherwise plan as above. Resident Activity Tracking Resident Involvement: Resident Care Provided Care Provided: Adult [facility] Medicine
[2020-05-07] MEDS ORDERED: ALBUTEROL HFA 8 GM INHALER INH PRN (19:22)
[2020-05-07] MEDS ORDERED: DOCUSATE SODIUM 100 MG CAP PO PRN (19:22)
[2020-05-07] MEDS ORDERED: PROMETHAZINE HCL 6.25 MG in SODIUM CHLORIDE 0.9% 50 ML IV PRN (19:34)
[2020-05-07] MEDS: HYDROmorphone INJ 0.5 MG/0.5 ML SYR IV PRN ×2 (19:53→22:41)
[2020-05-07] MEDS ORDERED: PATIENT'S HEIGHT AND/OR WEIGHT NEEDED SCH (20:00)
[2020-05-07] MEDS ORDERED: ALBUT/IPRATROP 3MG/0.5MG NEB 3 ML VIAL INH PRN (20:23)
[2020-05-07] MEDS ORDERED: ATENOLOL 25 MG TABLET PO SCH (21:00)
[2020-05-07 21:20] LABS: INR 1.1 (0.9-1.1); Partial Thromboplastin Ratio 1.1; Prothrombin Time 11.6 Seconds (9.0-12.0)
[2020-05-07] MEDS: TRAVOPROST Z 0.004% OPH SOLN 2.5 ML BTL OPR SCH (22:40)
[2020-05-07] MEDS: BRINZOLAMIDE (AZOPT) OPS 10 ML BTL OP SCH (22:40)
[2020-05-07] MEDS: TRAZODONE HCL 50 MG TAB PO SCH (22:41)
[2020-05-07] MEDS: SIMVASTATIN 10 MG TAB PO SCH (22:41)
[2020-05-07] MEDS: PIPERACILLIN/TAZOBACTAM 3.375 GM in DEXTROSE 5% 100 ML IV SCH (23:58)
--- NOTE | 2020-05-08 02:33 | Billing Data ---
Date of Service May 07, 2020 Coding Level of Care Code 57236 Initial Inpt Care Lvl 3
[2020-05-08 06:43] LABS: Basophils # (auto) 0.01 K/uL (0-0.2); Basophils % (auto) 0.2 %; Eosinophils # (auto) 0.08 K/uL (0-0.5); Eosinophils % (auto) 1.6 %; Hemoglobin 12.7 g/dL (14.0-18.0); Lymphocytes # (auto) 1.14 K/uL (1.2-3.4); Lymphocytes % (auto) 23.4 %; Mean Corpuscular Hgb Conc 34.3 g/dL (32-36); Mean Corpuscular Volume 101.9 fL (80-100); Mean Platelet Volume 11.2 fL (7.4-10.4); Monocytes # (auto) 0.68 K/uL (0.11-0.59); Neutrophils # (auto) 2.96 K/uL (1.4-6.5); Neutrophils % (auto) 60.8 %; Platelet Count 178 K/uL (130-400); RDW Coefficient of Variation 13.7 % (11.5-14.5); RDW Standard Deviation 51.7 fL (36.4-46.3); Red Blood Count 3.63 M/uL (4.7-6.1); White Blood Count 4.87 K/uL (4.8-10.8)
[2020-05-08] MEDS ORDERED: ALBUT/IPRATROP 3MG/0.5MG NEB 3 ML VIAL INH SCH (07:00)
[2020-05-08] MEDS ORDERED: NORMOSOL-R 500 ML IV ONE (07:15)
[2020-05-08 07:19] LABS: BUN Creatinine Ratio 30.5 (10-20); Bilirubin Direct 0.4 mg/dl (0-0.2); Calcium 8.4 mg/dl (8.5-10.1); Creatinine Clr Calc Pharmacy 16.8 ml/min; Est GFR (African American) 21.6; Est GFR (Non-African American) 18.7; Magnesium 2.5 mg/dl (1.8-2.4); Potassium 4.1 mmol/L (3.5-5.1)
[2020-05-08 07:30] LABS: Phosphorus 6.2 mg/dl (2.5-4.9); Thyroid Stimulating Hormone 3.71 uIu/ml (0.300-4.500); Total Protein 6.6 gm/dl (6.4-8.2)
[2020-05-08] MEDS: BRINZOLAMIDE (AZOPT) OPS 10 ML BTL OP SCH ×2 (07:47→20:51)
--- NOTE | 2020-05-08 07:53 | Magnetic Resonance Report ---
MR MRCP CLINICAL HISTORY: Right-sided abdominal pain abnormal CT scan. Possible common bile duct calculus. COMPARISON STUDY: CT scan dated 05/07/2020 FINDINGS: A breath-hold MRCP was performed. MIP images were acquired. Patient Access Specialist images reveal what appears to be a Smith catheter. There is a small amount of free pelvic fluid . There are postsurgical changes within the cervical spine. The gallbladder is mildly distended. The common bile duct is dilated measuring 10 mm. There is an 11 mm filling defect within the distal common bile duct. There is minimal dilatation of the proximal mos t pancreatic duct. The mid and distal pancreatic duct are of normal caliber. There are trace pleural effusions. There is trace perihepatic fluid. IMPRESSION: 1. Dilated common bile duct and 11 mm filling defect within the distal most common bile duct (stone v ersus polypoid neoplasm). An ERCP is recommended in follow-up. 2. Trace ascites. 3. Mild gallbladder distention. No gallstones identified. ACT 112: Negative or not required by law. Electronically signed by: Julio C Childs M.D. 05/08/2020 7:52 AM
[2020-05-08] MEDS ORDERED: PNEUMOCOCCAL ADMINISTRATION CHARGE ONE (08:00)
[2020-05-08] MEDS ORDERED: PNEUMOCOCCAL POLYSACCHARIDES 25 MCG/0.5 ML VIAL/SYR IM ONE (08:00)
--- NOTE | 2020-05-08 08:30 | Cardiology Consultation ---
Date of Consultation May 08, 2020 Assessment & Plan (1) Atrial fibrillation: (2) Chronic diastolic CHF (congestive heart failure): (3) Hypotension: (4) Chronic renal disease, stage III: (5) Mitral and aortic regurgitation: (6) Tricuspid regurgitation: (7) LVH (left ventricular hypertrophy): ASSESSMENT/PLAN: 1. Atrial fibrillation: He appears to be asymptomatic in this regard. This is a new diagnosis for him. It is difficult to know the true onset. His rate was well controlled at home. He takes atenolol at home however this is being held due to hypotension. When able, would recommend resumption of his home beta- lion dose. Anticoagulation for stroke risk reduction would be warranted however there is potential procedure/surgery and therefore would wait until surgical procedures are done. 2. Chronic diastolic CHF: He appeared hypovolemic on examination this morning. He was hypotensive and receiving IV fluids to help maintain blood pressure. Monitor fluid balance carefully. 3. Hypotension: He appeared hypovolemic this morning as above. Agree with ca utious fluid resuscitation. Cannot exclude other process driving his hypotension and further evaluation of his common bile duct filling defect is pending. 4. CKD: Renal function worse than usual baseline. Follows with Nephrology. Improve blood pressure to help renal perfusion. 5. Mitral and aortic regurgitation: Non severe. Chronic issue. Can follow over time. 6. Tricuspid regurgitation: Reported as more significant than outpatient echoes in the past. This can be followed over time as appropriate. 7. LVH: Has a history of severe concentric LVH, and was once again reported on today's echo. 8. Preoperative cardiac assessment: Given his current state, he is in no condition to undergo ischemic evaluation. Although he carries a history of CHF, he appeared to be hypovolemic this morning. No further cardiac evaluation recommended. Would have to assume higher risk given that we cannot assess his exercise tolerance given his medical conditions over the past several weeks. That being said, it appears as though the benefit of further investigation of his abnormal MRCP would outweigh the risks from a cardiac perspective at this time. This was discussed with patient this morning. Acceptable surgical risk for his circumstance was also conveyed verbally to Leanna Ennis of General surgery and Catherine Carrasco of GI. Patient care also communicated with Dr. Brooks of the primary hospitalist service. I will be away from the hospital. If there are any questions or concerns over the weekend, please do not hesitate to contact the on-call critical care registered nurse, Dr. Do. Thank you for allowing me to participate in the care of your patient. Please call for any other questions or concerns. Sincerely, Freedom Cunha M.D. History of Present Illness Reason for Consultation: pre-op evaluation; hx of CHF Requesting Physician: Dr. Seals Attending Physician: Jose M Brooks MD History of Present Illness Mr. Garay is a very pleasant 89-year-old gentleman with a history significant for diastolic CHF, pulmonary hypertension, systemic hypertension, CKD, and dyslipidemia. He also has abnormal PFTs and sleep apnea an uses CPAP qhs. He has had the following studies/procedures: 1. Echo 10/14/2014: Normal LV systolic function without regional wall motion abnormalities. Severe LVH. Moderate pulmonary hypertension, RVSP 53 mmHg. 2. PFTs 12/01/2014: Mild to moderate reduction in DLCO. Very mild restrictive changes. No obstruction. 3. Nuclear stress 01/01/2015: Negative for ischemia. Fixed inferior, inferoseptal, and inferolateral defect with normal wall motion, suggesting diaphragmatic attenuation. EF 50%. Normal wall motion. 4. Echo 06/26/2015: Normal LV size, systolic function, wall motion. EF 55-60%. Severe LVH. Trace to mild AI. Mild BERONICA of chordal structures. No significant obstruction. Mild MR. RVSP 49. 5. Echo 05/12/2017: Normal LV size and systolic function. EF 60-65%. Normal wall motion. Severe concentric LVH. Type 2 diastolic dysfunction. Sclerotic aortic valve with mild AI. Mild MR. Mild to moderate TR. RVSP 44. 6. PFT's 06/25/2019: Normal spirometry, lung volumes, and diffusion capacity. 7. Echo 07/11/2019: Normal LV size. EF 50-55%. Normal wall motion. Severe concentric LVH. Mildly reduced RV systolic function. Sclerotic aortic valve. RVSP 38. Cardiology was asked to see Mr. Garay today for preoperative evaluation for concern that he may require a surgical procedure while hospitalized. He was seen this morning at approximately 7:45 a.m.. He was referred to the emergency department yesterday by Dr. Wolf, his beekeeper farmer. He has been experiencing right-sided back/flank pain. This pain had been occurring for several weeks but has worsened more recently. He states that he has lost approximately 20 lb in the past 1-2 months due to decreased appetite. He has occasional dyspnea with exertion but denies orthopnea and was laying completely flat while in the hospital bed this morning. He denies paroxysmal nocturnal dyspnea, chest pain, angina, syncope, near-syncope, palpitations, or edema. He states that he had not eaten for approximately 2 days. He denies bleeding such as melena, hematochezia, hematuria. He denies nausea, vomiting, fevers, or chills. At the time of our visit this morning, he was receiving normal saline fluid bolus for hypotension. He stated at that time that his back/flank pain was much more tolerable as he had been receiving pain medications. Review of systems: As above. Review of systems otherwise nega tive/unremarkable. Family history: Mother had WI at 76. She was also diabetic. His father had a pacemaker but of cancer. Three siblings. Social history: Quit smoking in approximately 1974 after approximately 20 pack years. Consumes alcohol. He is to his 2nd , Nohemy. His 1st after 50+ years of marriage. He has 3 children. 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 He was unaccompanied in his hospital room. Allergies Allergy/AdvReac Type Severity Reaction Status Date / Time alfuzosin [From Uroxatral] Allergy PENILE Verified 05/07/20 19:28 SWELLING gabapentin [From Neurontin] AdvReac Severe fluid Verified 05/07/20 14:15 retention latex AdvReac Unknown RED PLUMMER Verified 05/07/20 14:15 ON SKIN Home Medications Home Medications Medication Instructions Recorded Confirmed Type aspirin 81 mg tablet,delayed 81 mg PO DAILY 04/03/19 05/07/20 History release travoprost 0.004 % eye drops 1 drops OPR QPM 04/04/19 05/07/20 History albuterol sulfate 90 mcg/actuation 1 - 2 puffs INHALATION QAM PRN #1 07/15/19 05/07/20 History aerosol inhaler gm Azopt 1 drp OPHTHALMIC (EYE) BID 09/05/19 05/07/20 History docusate sodium [Stool Softener] 100 mg PO QPM PRN 09/05/19 05/07/20 History losartan 50 mg PO QAM 09/05/19 05/07/20 History ipratropium 0.5 mg-albuterol 3 mg 3 ml INH QID #360 ml 11/04/19 05/07/20 Rx (2.5 mg base)/3 mL nebulization soln tramadol 50 mg tablet 50 mg PO Q6H PRN #30 tab 11/13/19 05/07/20 Rx atenolol 25 mg tablet 25 mg PO HS #90 tab 11/19/19 05/07/20 Rx furosemide 80 mg tablet 80 mg PO QAM #180 tab 11/19/19 05/07/20 Rx trazodone 50 mg tablet 50 mg PO HS #90 tab 12/13/19 05/07/20 Rx linaclotide 290 mcg capsule 290 mcg PO DAILY #30 cap 03/18/20 05/07/20 Rx citalopram 10 mg tablet 10 mg PO DAILY #30 tab 04/06/20 05/07/20 Rx furosemide 40 mg tablet 40 mg PO QAM #90 tab 04/08/20 05/07/20 Rx simvastatin 10 mg tablet 10 mg PO HS #90 tab 05/05/20 05/07/20 Rx calcitriol 0.5 mcg PO 3XWK 05/07/20 05/07/20 History Patient History Medical History Balance problem uses walker Balanitis Basal cell carcinoma of skin of face HX OF Chronic diastolic CHF (congestive heart failure) Chronic kidney disease, stage IV (severe) under surveillance; baseline creatinine 2-2.3 range History of basal cell carcinoma History of glaucoma History of neoplasm of uncertain behavior of skin History of pneumonia Hx of cataract Hypercholesterolemia Hyponatremia HISTORY OF Malignant melanoma of back Restrictive lung disease Secondary hyperparathyroidism Surgical History History of back surgery MULTIPLE, + FUSION HX History of bilateral knee arthroplasty History of carpal tunnel surgery of left wrist History of carpal tunnel surgery of right wrist History of colonoscopy History of repair of left rotator cuff History of repair of right rotator cuff History of repair of rotator cuff History of shoulder surgery History of surgical procedure Hand incision tendon sheath of a finger History of tonsillectomy S/P cervical spinal fusion 09/16/19 Dr. Kip Toney- #1 anterior cervical discectomy with bilateral foraminotomies C3 and C4. #2 anterior cervical arthrodesis C3-C4. #3 placement of Spira 8 mm cage filled with DBM at C3-4 and #4 application of andrade plate and screws across C3-4 Status post repair of nerve History of decompression median nerve at carpal tunnel Family History Mother Coronary heart disease Diabetes Myocardial infarction Father Squamous cell carcinoma of skin Denies family history of Ovarian cancer Prostate cancer Breast cancer Colorectal cancer Social History Smoking Status: Unknown if ever smoked Age Started Using Tobacco: 22; Age Quit Using Tobacco: 82; packs per day: 1; Hx Alcohol Use: No Hx Substance Use: No Preferred Language: Haitian Communication Ability: Effective Visual Impairment: No Limitations Commercial Sales Specialist Required: No Beliefs That Will Affect Care: None marital status: Current Living Situation: Spouse current occupational status: retired Other Information That Helps Us Care for You: No Feels Safe at Home: Yes Safety Concerns: Feels Safe At This Time caffeine: Yes Dental Care, Regularly: Yes Physical Activity Frequency: Does not Exercise Seatbelt Use: always Sunscreen Use: Yes Physical Exam Physical Exam: Gen.: No acute distress. Alert. HEENT: Anicteric sclera. Neck: No JVD. No bruits. Normal carotid upstrokes bilaterally. Cardiac: PMI was nondisplaced. No ventricular heave. Irregularly irregular with normal rate. Normal S1-S2. 2/6 systolic murmur. No rubs, or gallops. Pulmonary: Clear to auscultation bilaterally without wheezes, rales, or rhonchi. Abdomen: Soft, nontender, nondistended, with hypoactive bowel sounds. No bruits noted. Extremities: 1+ radial pulses bilaterally. 1+ posterior tibialis pulses bilaterally. No edema or cyanosis. Psychiatric: Affect appears appropriate. Results & Data ([facility]) Vital Signs (Past 12 Hours) Vital Signs Temp Pulse Resp BP BP Pulse Ox 05/08/20 07:23 36.8 C 80 16 83/44 L 95 05/08/20 03:31 36.4 C L 73 17 73/45 L 95 05/07/20 23:51 36.4 C L 68 17 101/63 92 Laboratory Results Laboratory Results - last 24 hr 05/07/20 05/07/20 05/07/20 15:20 15:20 15:20 WBC 6.91 RBC 4.21 L Hgb 14.9 Hct 42.0 MCV 99.8 MCH 35.4 H MCHC 35.5 RDW Std Deviation 49.3 H RDW Coeff of Cathy 13.6 Plt Count 228 MPV 11.2 H Immature Gran % (Auto) 0.1 Neut % (Auto) 66.6 Lymph % (Auto) 23.2 [place] % (Auto) 8.5 Eos % (Auto) 1.3 Baso % (Auto) 0.3 Neut # (Auto) 4.60 Lymph # (Auto) 1.60 [place] # (Auto) 0.59 Eos # (Auto) 0.09 Baso # (Auto) 0.02 Immature Gran # (Auto) 0.01 PT INR APTT PTT Ratio Sodium 132 L Potassium 3.7 Chloride 98 Carbon Dioxide 22 Anion Gap 12.0 H BUN 90 H Creatinine 2.66 H Est Cr Clr Drug Dosing Not Reportable Est GFR ( Amer) 23.9 Est GFR (Non-Af Amer) 20.6 BUN/Creatinine Ratio 33.9 H Glucose 91 Calcium 9.3 Phosphorus Magnesium Total Bilirubin 1.0 Direct Bilirubin AST 37 ALT 43 Alkaline Phosphatase 163 H NT-Pro-B Natriuret Pep 44275 H Total Protein 8.1 Albumin 3.9 Globulin 4.2 H Albumin/Globulin Ratio 0.9 Lipase 161 TSH Urine Color Urine Appearance Urine pH Ur Specific [place] Urine Protein Urine Glucose (UA) Urine Ketones Urine Blood Urine Nitrite Urine Bilirubin Urine Urobilinogen Ur Leukocyte Esterase 05/07/20 05/07/20 05/08/20 15:20 16:07 06:18 WBC RBC Hgb Hct MCV MCH MCHC RDW Std Deviation RDW Coeff of Cathy Plt Count MPV Immature Gran % (Auto) Neut % (Auto) Lymph % (Auto) [place] % (Auto) Eos % (Auto) Baso % (Auto) Neut # (Auto) Lymph # (Auto) [place] # (Auto) Eos # (Auto) Baso # (Auto) Immature Gran # (Auto) PT 11.6 INR 1.1 APTT 31.0 PTT Ratio 1.1 Sodium 136 Potassium 4.1 Chloride 105 Carbon Dioxide 21 Anion Gap 11.0 BUN 88 H Creatinine 2.89 H Est Cr Clr Drug Dosing 16.8 Est GFR ( Amer) 21.6 Est GFR (Non-Af Amer) 18.7 BUN/Creatinine Ratio 30.5 H Glucose 66 L Calcium 8.4 L Phosphorus 6.2 H Magnesium 2.5 H Total Bilirubin 1.0 Direct Bilirubin 0.4 H AST 32 ALT 34 Alkaline Phosphatase 117 NT-Pro-B Natriuret Pep Total Protein 6.6 Albumin 3.0 L Globulin Albumin/Globulin Ratio Lipase TSH 3.710 Urine Color Yellow Urine Appearance Clear Urine pH 5.0 Ur Specific [place] 1.010 Urine Protein Negative Urine Glucose (UA) Negative Urine Ketones Negative Urine Blood Negative Urine Nitrite Negative Urine Bilirubin Negative Urine Urobilinogen Negative Ur Leukocyte Esterase Negative 05/08/20 06:18 WBC 4.87 RBC 3.63 L Hgb 12.7 L Hct 37.0 L MCV 101.9 H MCH 35.0 H MCHC 34.3 RDW Std Deviation 51.7 H RDW Coeff of Cathy 13.7 Plt Count 178 MPV 11.2 H Immature Gran % (Auto) 0.0 Neut % (Auto) 60.8 Lymph % (Auto) 23.4 [place] % (Auto) 14.0 Eos % (Auto) 1.6 Baso % (Auto) 0.2 Neut # (Auto) 2.96 Lymph # (Auto) 1.14 L [place] # (Auto) 0.68 H Eos # (Auto) 0.08 Baso # (Auto) 0.01 Immature Gran # (Auto) 0.00 PT INR APTT PTT Ratio Sodium Potassium Chloride Carbon Dioxide Anion Gap BUN Creatinine Est Cr Clr Drug Dosing Est GFR ( Amer) Est GFR (Non-Af Amer) BUN/Creatinine Ratio Glucose Calcium Phosphorus Magnesium Total Bilirubin Direct Bilirubin AST ALT Alkaline Phosphatase NT-Pro-B Natriuret Pep Total Protein Albumin Globulin Albumin/Globulin Ratio Lipase TSH Urine Color Urine Appearance Urine pH Ur Specific [place] Urine Protein Urine Glucose (UA) Urine Ketones Urine Blood Urine Nitrite Urine Bilirubin Urine Urobilinogen Ur Leukocyte Esterase Diagnostic Findings ECG personally reviewed: ECG 05/07/2020: AFib 71 bpm. RBBB. PVC versus aberrant conduction. Septal infarct. Lateral infarct. Echo 05/08/2020 report reviewed: EF 65-70%. Flattened septum consistent with RV pressure/volume overload. Normal wall motion. Severe concentric LVH. Moderate MR. Moderate to severe TR. RVSP 40-50. Telemetry personally reviewed: AFib. No significant pauses. MRCP 05/07/2020: Dilated common bile duct and 11 mm filling defect within the distal most common bile duct (stone versus polypoid neoplasm). Per Radiology. Medications Administered Current Inpatient Medications Acetaminophen (Acetaminophen 325 Mg Tab) 650 mg PO Q4H PRN PRN Reason: Pain or Fever Stop: 06/06/20 20:24 Albuterol (Albuterol Hfa 8 Gm Inhaler) 1 - 2 puffs INH QAM PRN PRN Reason: Shortness Of Breath Or Wheezing Stop: 06/06/20 19:21 Albuterol (Albut/Ipratrop 3mg/0.5mg Neb 3 Ml Vial) 3 ml INH Q6H PRN PRN Reason: Shortness of breath Stop: 06/06/20 20:29 Aspirin (Aspirin 81 Mg Ectab) 81 mg PO DAILY MITRA Stop: 06/07/20 08:59 Brinzolamide (Brinzolamide (Azopt) Ops 10 Ml Btl) 1 drops OP BID MITRA Stop: 06/06/20 20:59 Last Admin: 05/08/20 07:47 Dose: 1 drops Documented by: Calcitriol (Calcitriol 0.25 Mcg Capsule) 0.5 mcg PO MoWeFr MITRA Stop: 06/07/20 08:59 Citalopram Hydrobromide (Citalopram 20 Mg Tab) 10 mg PO DAILY MITRA Stop: 06/07/20 08:59 Docusate Sodium (Docusate Sodium 100 Mg Cap) 100 mg PO QPM PRN PRN Reason: Constipation Stop: 06/06/20 19:21 Hydromorphone HCl (Hydromorphone Inj 0.5 Mg/0.5 Ml Syr) 0.5 mg IV Q1H PRN PRN Reason: Pain Stop: 05/21/20 19:22 Last Admin: 05/07/20 22:41 Dose: 0.5 mg Documented by: Promethazine HCl 6.25 mg/ (Sodium Chloride) 50.25 mls @ 201 mls/hr IV Q6H PRN PRN Reason: Nausea And Vomiting Stop: 06/06/20 19:33 Piperacillin Sod/Tazobactam (Sod 3.375 gm/ Dextrose) 115 mls @ 28.75 mls/hr IV Q12H MITRA; Protocol Stop: 05/18/20 00:00 Last Infusion: 05/08/20 03:58 Dose: Infused Documented by: Miscellaneous Information (Piperacill/Tazobac Consult Active) 1 ea N/A UD PRN PRN Reason: Consult Stop: 06/06/20 17:23 Last Admin: 05/07/20 17:55 Dose: 1 ea Documented by: Simvastatin (Simvastatin 10 Mg Tab) 10 mg PO HS MITRA Stop: 06/06/20 20:59 Last Admin: 05/07/20 22:41 Dose: Not Given Documented by: Travoprost (Travoprost Z 0.004% Oph Soln 2.5 Ml Btl) 1 drops OPR QPM MITRA Stop: 06/06/20 20:59 Last Admin: 05/07/20 22:40 Dose: 1 drops Documented by: Trazodone HCl (Trazodone Hcl 50 Mg Tab) 50 mg PO HS MITRA Stop: 06/06/20 20:59 Last Admin: 05/07/20 22:41 Dose: Not Given Documented by: PG Care Time/CCT Total # of Minutes Spent Total Time Spent with Patient: Total time spent is greater than 50% in coordination of care (as documented) at patient's floor/unit and/or counseling patient: Coding Level of Care Code 85593 Initial Inpt Care Lvl 3 Diagnoses Atrial fibrillation I48.91 Chronic diastolic CHF (congestive heart failure) I50.32 Hypotension I95.9 Chronic renal disease, stage III N18.3 Mitral and aortic regurgitation I08.0 Tricuspid regurgitation I07.1 LVH (left ventricular hypertrophy) I51.7
--- NOTE | 2020-05-08 08:30 | Surgery Consultation ---
Date of Consultation May 08, 2020 Assessment & Plan (1) Common bile duct filling defect, non-specific: This is an 89y M with a PMH of CKD, CHF, spinal stenosis, and pulmonary HTN who presents to the [facility] ED on 05/07/20 with complaints of right flank pain. Imaging as revealed a distended gallbladder without stones and mild dilation of the common bile duct. An MRCP was obtained showing a dilated common bile duct with concern for a filling defect (stone vs polypoid lesion), otherwise no cholelithiasis. Today's labs revealed a WBC: 4.8, Tb: 1, AST:32, AKT: 34, AlkP:117. On examination patient's abdomen is soft, non tender, non distended. He denies any abdominal complaints. Patient is a poor surgical candidate. There is no concern for cholecystitis on his imaging or labs. Will defer consideration of ERCP to GI. Ortho has been consulted regarding back pain and ?T12 screw loosening seen on imaging. Remainder of care per medicine service. Please call with any questions/concerns. as above. pt seen. currently denies pain or nausea. the pain was primarily in his right flank/back. wbc normal. no gallstones on imaging. MRCP shows filling defect in distal CBD. he would be a very high surgical risks and he does not appear to have acute cholecystits. will need ercp to eval the filling defect. will follow along. History of Present Illness Attending Physician: Jose M Brooks MD History of Present Illness This is an 89y M with a PMH of CKD, CHF, spinal stenosis, and pulmonary HTN who presents to the [facility] ED on 05/07/20 with complaints of right flank pain. Workup in the ER revealed a normal WBC, and a CT scan showing a distended gallbladder without stones, mild dilation of CBD, and a 1mm calcification in the distal CBD. LFTs unremarkable outside of an alk phos to 163. CT scan also showed concern for loosening of his bilateral T12 screws from prior spinal surgery. Patient reports that his back pain has started about a month ago and has progressively gotten worse. He denies any nausea/vomiting, fevers, chills, chest pain, shortness of breath, or abdominal pain. He denies diarrhea, endorses some constipation that he takes linzess for. He says he normally tolerates a diet fine without issues. Patient was admitted under the medicine service and an MRCP was ordered and surgery was consulted for evaluation of possible gallbladder etiology. Allergies Allergy/AdvReac Type Severity Reaction Status Date / Time alfuzosin [From Uroxatral] Allergy PENILE Verified 05/07/20 19:28 SWELLING gabapentin [From Neurontin] AdvReac Severe fluid Verified 05/07/20 14:15 retention latex AdvReac Unknown RED PLUMMER Verified 05/07/20 14:15 ON SKIN Home Medications Home Medications Medication Instructions Recorded Confirmed Type aspirin 81 mg tablet,delayed 81 mg PO DAILY 04/03/19 05/07/20 History release travoprost 0.004 % eye drops 1 drops OPR QPM 04/04/19 05/07/20 History albuterol sulfate 90 mcg/actuation 1 - 2 puffs INHALATION QAM PRN #1 07/15/19 05/07/20 History aerosol inhaler gm Azopt 1 drp OPHTHALMIC (EYE) BID 09/05/19 05/07/20 History docusate sodium [Stool Softener] 100 mg PO QPM PRN 09/05/19 05/07/20 History losartan 50 mg PO QAM 09/05/19 05/07/20 History ipratropium 0.5 mg-albuterol 3 mg 3 ml INH QID #360 ml 11/04/19 05/07/20 Rx (2.5 mg base)/3 mL nebulization soln tramadol 50 mg tablet 50 mg PO Q6H PRN #30 tab 11/13/19 05/07/20 Rx atenolol 25 mg tablet 25 mg PO HS #90 tab 11/19/19 05/07/20 Rx furosemide 80 mg tablet 80 mg PO QAM #180 tab 11/19/19 05/07/20 Rx trazodone 50 mg tablet 50 mg PO HS #90 tab 12/13/19 05/07/20 Rx linaclotide 290 mcg capsule 290 mcg PO DAILY #30 cap 03/18/20 05/07/20 Rx citalopram 10 mg tablet 10 mg PO DAILY #30 tab 04/06/20 05/07/20 Rx furosemide 40 mg tablet 40 mg PO QAM #90 tab 04/08/20 05/07/20 Rx simvastatin 10 mg tablet 10 mg PO HS #90 tab 05/05/20 05/07/20 Rx calcitriol 0.5 mcg PO 3XWK 05/07/20 05/07/20 History Patient History Medical History Balance problem uses walker Ketananitis Basal cell carcinoma of skin of face HX OF Chronic diastolic CHF (congestive heart failure) Chronic kidney disease, stage IV (severe) under surveillance; baseline creatinine 2-2.3 range History of basal cell carcinoma History of glaucoma History of neoplasm of uncertain behavior of skin History of pneumonia Hx of cataract Hypercholesterolemia Hyponatremia HISTORY OF Malignant melanoma of back Restrictive lung disease Secondary hyperparathyroidism Surgical History History of back surgery MULTIPLE, + FUSION HX History of bilateral knee arthroplasty History of carpal tunnel surgery of left wrist History of carpal tunnel surgery of right wrist History of colonoscopy History of repair of left rotator cuff History of repair of right rotator cuff History of repair of rotator cuff History of shoulder surgery History of surgical procedure Hand incision tendon sheath of a finger History of tonsillectomy S/P cervical spinal fusion 09/16/19 Dr. Kip Toney- #1 anterior cervical discectomy with bilateral foraminotomies C3 and C4. #2 anterior cervical arthrodesis C3-C4. #3 placement of Spira 8 mm cage filled with DBM at C3-4 and #4 application of andrade plate and screws across C3-4 Status post repair of nerve History of decompression median nerve at carpal tunnel Family History Mother Coronary heart disease Diabetes Myocardial infarction Father Squamous cell carcinoma of skin Denies family history of Ovarian cancer Prostate cancer Breast cancer Colorectal cancer Social History Smoking Status: Unknown if ever smoked Age Started Using Tobacco: 22; Age Quit Using Tobacco: 82; packs per day: 1; Hx Alcohol Use: No Hx Substance Use: No Preferred Language: Belgian Communication Ability: Effective Visual Impairment: No 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: No Beliefs That Will Affect Care: None marital status: Current Living Situation: Spouse current occupational status: retired Other Information That Helps Us Care for You: No Feels Safe at Home: Yes Safety Concerns: Feels Safe At This Time caffeine: Yes Dental Care, Regularly: Yes Physical Activity Frequency: Does not Exercise Seatbelt Use: always Sunscreen Use: Yes Review of Systems Constitutional: no fever and no chills Cardiovascular: no chest pain Gastrointestinal: + constipation; no abdominal pain, no bloating, no nausea, no vomiting and no diarrhea/loose stools Physical Exam Physical Exam: awake/alert Respiratory: normal respiratory effort Gastrointestinal (Abdomen): Inspection/Auscultation: abdomen not distended Percussion/Palpation: abdomen soft; abdomen nontender Results & Data ([facility]) Vital Signs (Past 12 Hours) Vital Signs Temp Pulse Resp BP BP Pulse Ox 05/08/20 07:23 36.8 C 80 16 83/44 L 95 05/08/20 03:31 36.4 C L 73 17 73/45 L 95 05/07/20 23:51 36.4 C L 68 17 101/[address] WITHOUT CONTRAST CT DOSE: 397.17 mGycm HISTORY: Acute right-sided flank pain in a patient with history of chronic kidney disease R flank pain - CKD III TECHNIQUE: Multiaxial CT images of the abdomen and pelvis were performed without contrast. A dose lowering technique was utilized adhering to the principles of ALARA. COMPARISON STUDY: Chest radiograph of same day, CT abdomen and pelvis 08/21/2015 FINDINGS: Mild scarring versus atelectasis of the right lung base. Minimal mucus plugging of the right lung base. No pneumatosis or pneumoperitoneum. Moderate cardiomegaly with coronary artery calcifications. Calcified granulomata of the spleen. Moderate generalized pancreatic atrophy. Unremarkable adrenal glands. Distended gallbladder without cholelithiasis. There is a 1 mm calcification noted within the region of the inferior common bile duct on image 26 series 3. Common bile duct is mildly dilated at 10 mm. This previously measured approximately 9 mm in 2016. Kidneys are unremarkable. No renal or ureteral calculi or obstructive uropathy. Prostamegaly with mild urinary bladder distention and wall thickening. Small fat filled bilateral inguinal hernias. Extensive calcified plaque of the abdominal aorta without aneurysm. No adenopathy. No bowel obstruction or bowel wall thickening. Trace free fluid within the dependent pelvis. Mild to moderate fecal retention. Noninflamed appendix. Mild generalized body wall edema. Tiny fat filled mid ventral abdominal wall hernia, diastases of 9 mm. Degenerative changes of the spine, pelvis and hips. Extensive postoperative changes of the spine are redemonstrated. Laminectomy changes are again noted at L4-L5 with evidence of prior hardware removal at these levels. Posterior interbody lilia and screw fusion at T12-L3. Discectomy changes at L3-L4, L4-L5 and L5-S1. The right T12 pedicle screw extends into the T11-T12 disc space. Lucency surrounds the bilateral T12 pedicle screws. No acute fracture IMPRESSION: 1. No renal or ureteral calculi or obstructive uropathy. 2. No bowel obstruction or bowel wall thickening. Normal appendix. 3. Distended gallbladder without cholelithiasis identified. Additionally, there is mild dilation of the common bile duct. A 1 mm calcification is noted within the region of the distal common bile duct. Correlate with laboratory analysis to exclude choledocholithiasis. 4. Prostamegaly with evidence of chronic bladder outlet obstruction. 5. Nonspecific trace free fluid within the dependent pelvis. 6. Posterior interbody lilia and screw fusion at T12-L3. The right T12 pedicle screw extends into the T11-T12 disc space and there is suggested loosening of the bilateral T12 screws. 7. Additional findings as above. ACT 112: Negative or not required by law. The above report was generated using voice recognition software. It may contain grammatical, syntax or spelling errors. Electronically signed by: Malik Herron M.D. 05/07/2020 4:39 PM MR MRCP CLINICAL HISTORY: Right-sided abdominal pain abnormal CT scan. Possible common bile duct calculus. COMPARISON STUDY: CT scan dated 05/07/2020 FINDINGS: A breath-hold MRCP was performed. MIP images were acquired. Foil Spinner images reveal what appears to be a Smith catheter. There is a small amount of free pelvic fluid. There are postsurgical changes within the cervical spine. The gallbladder is mildly distended. The common bile duct is dilated measuring 10 mm. There is an 11 mm filling defect within the distal common bile duct. There is minimal dilatation of the proximal most pancreatic duct. The mid and distal pancreatic duct are of normal caliber. There are trace pleural effusions. There is trace perihepatic fluid. IMPRESSION: 1. Dilated common bile duct and 11 mm filling defect within the distal most common bile duct (stone versus polypoid neoplasm). An ERCP is recommended in follow-up. 2. Trace ascites. 3. Mild gallbladder distention. No gallstones identified. ACT 112: Negative or not required by law. Electronically signed by: Julio C Childs M.D. 05/08/2020 7:52 AM PG Care Time/CCT Total # of Minutes Spent Total Time Spent with Patient: Total time spent is greater than 50% in coordination of care (as documented) at patient's floor/unit and/or counseling patient: Coding Level of Care Code 23076 Initial Inpt Care Lvl 3 Diagnoses Common bile duct filling defect, non-specific R93.2
--- NOTE | 2020-05-08 08:33 | Electrocardiogram Report ---
Test Reason : Blood Pressure : / mmHG Vent. 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
[2020-05-08] MEDS ORDERED: FUROSEMIDE 40 MG TAB PO SCH (09:00)
[2020-05-08] MEDS ORDERED: ASPIRIN 81 MG ECTAB PO SCH (09:00)
[2020-05-08] MEDS ORDERED: FUROSEMIDE 80 MG TAB PO SCH (09:00)
--- NOTE | 2020-05-08 09:58 | Gastrointestinal Consultation ---
Date of Consultation May 08, 2020 Assessment & Plan (1) Common bile duct filling defect, non-specific: 89 year old male with right sided back and abdominal pain x 1 month admitted through the ED, CT and MR imaging concerning for distended gallbladder without cholelithiasis identified w/ mild CBD dilation and filing defect also suggestion of loosening of the bilateral T12 screws. DDX discussed with patient. NPO Gen surg eval cardiology eval given new onset afib Ortho eval Will tentatively list for ERCP pending clearance Will discuss with biliary team Analgesia PRN Antiemetics PRN Thank you for allowing us to participate in the care of this patient. Please call with any acute changes, questions or concerns. Please see addendum below with additional recommendation from my supervising physician. Supervising Physician Co-Signing Physician Notes I have personally seen and examined the patient with ROZINA Rosario. Her note reflects my exam and findings. I agree with her impression and plan. Distal CBD filling defect. ERCP once cleared. Alex Lo M.D. History of Present Illness Reason for Consultation: right sided pain, abnormal imaging Requesting Physician: Todd Attending Physician: Jose M Brooks MD History of Present Illness 89 year old male with history of CKD, CHF, spinal stenosis, and pulmonary HTN who presents to the [facility] ED on 05/07/20 with complaints of right flank pain - GI asked to evaluate for his discomfort and abnormal imaging. Pt is very hard of hearing, without a hearing aid this AM. notes right sided back pain x 1 month. N o nausea/vomiting. No food aversion. In the ED no leukocytosis, CT scan showing a distended gallbladder without stones, mild dilation of CBD, and a 1mm calcification in the distal CBD. MRCP confirmed abnormal CBD and question of stone vs lesion in distal bile duct. LFTs unremarkable outside of an alk phos to 163. MRCP: Dilated common bile duct and 11 mm filling defect within the distal most common bile duct (stone versus polypoid neoplasm). An ERCP is recommended in follow-up. 2. Trace ascites. 3. Mild gallbladder distention. No gallstones identified. CT: No renal or ureteral calculi or obstructive uropathy. 2. No bowel obstruction or bowel wall thickening. Normal appendix. 3. Distended gallbladder without cholelithiasis identified. Additionally, there is mild dilation of the common bile duct. A 1 mm calcification is noted within the region of the distal common bile duct. Correlate with laboratory analysis to exclude choledocholithiasis. 4. Prostamegaly with evidence of chronic bladder outlet obstruction. 5. Nonspecific trace free fluid within the dependent pelvis. 6. Posterior interbody lilia and screw fusion at T12-L3. The right T12 pedicle screw extends into the T11-T12 disc space and there is suggested loosening of the bilateral T12 screws. 7. Additional findings as above. Allergies Allergy/AdvReac Type Severity Reaction Status Date / Time alfuzosin [From Uroxatral] Allergy PENILE Verified 05/07/20 19:28 SWELLING gabapentin [From Neurontin] AdvReac Severe fluid Verified 05/07/20 14:15 retention latex AdvReac Unknown RED PLUMMER Verified 05/07/20 14:15 ON SKIN Home Medications Home Medications Medication Instructions Recorded Confirmed Type aspirin 81 mg tablet,delayed 81 mg PO DAILY 04/03/19 05/07/20 History release travoprost 0.004 % eye drops 1 drops OPR QPM 04/04/19 05/07/20 History albuterol sulfate 90 mcg/actuation 1 - 2 puffs INHALATION QAM PRN #1 07/15/19 05/07/20 History aerosol inhaler gm Azopt 1 drp OPHTHALMIC (EYE) BID 09/05/19 05/07/20 History docusate sodium [Stool Softener] 100 mg PO QPM PRN 09/05/19 05/07/20 History losartan 50 mg PO QAM 09/05/19 05/07/20 History ipratropium 0.5 mg-albuterol 3 mg 3 ml INH QID #360 ml 11/04/19 05/07/20 Rx (2.5 mg base)/3 mL nebulization soln tramadol 50 mg tablet 50 mg PO Q6H PRN #30 tab 11/13/19 05/07/20 Rx atenolol 25 mg tablet 25 mg PO HS #90 tab 11/19/19 05/07/20 Rx furosemide 80 mg tablet 80 mg PO QAM #180 tab 11/19/19 05/07/20 Rx trazodone 50 mg tablet 50 mg PO HS #90 tab 12/13/19 05/07/20 Rx linaclotide 290 mcg capsule 290 mcg PO DAILY #30 cap 03/18/20 05/07/20 Rx citalopram 10 mg tablet 10 mg PO DAILY #30 tab 04/06/20 05/07/20 Rx furosemide 40 mg tablet 40 mg PO QAM #90 tab 04/08/20 05/07/20 Rx simvastatin 10 mg tablet 10 mg PO HS #90 tab 05/05/20 05/07/20 Rx calcitriol 0.5 mcg PO 3XWK 05/07/20 05/07/20 History Patient History Medical History Balance problem uses walker Balanitis Basal cell carcinoma of skin of face HX OF Chronic diastolic CHF (congestive heart failure) Chronic kidney disease, stage IV (severe) under surveillance; baseline creatinine 2-2.3 range History of basal cell carcinoma History of glaucoma History of neoplasm of uncertain behavior of skin History of pneumonia Hx of cataract Hypercholesterolemia Hyponatremia HISTORY OF Malignant melanoma of back Restrictive lung disease Secondary hyperparathyroidism Surgical History History of back surgery MULTIPLE, + FUSION HX History of bilateral knee arthroplasty History of carpal tunnel surgery of left wrist History of carpal tunnel surgery of right wrist History of colonoscopy History of repair of left rotator cuff History of repair of right rotator cuff History of repair of rotator cuff History of shoulder surgery History of surgical procedure Hand incision tendon sheath of a finger History of tonsillectomy S/P cervical spinal fusion 09/16/19 Dr. Kip Toney- #1 anterior cervical discectomy with bilateral foraminotomies C3 and C4. #2 anterior cervical arthrodesis C3-C4. #3 placement of Spira 8 mm cage filled with DBM at C3-4 and #4 application of andrade plate and screws across C3-4 Status post repair of nerve History of decompression median nerve at carpal tunnel Family History Mother Coronary heart disease Diabetes Myocardial infarction Father Squamous cell carcinoma of skin Denies family history of Ovarian cancer Prostate cancer Breast cancer Colorectal cancer Social History Smoking Status: Unknown if ever smoked Age Started Using Tobacco: 22; Age Quit Using Tobacco: 82; packs per day: 1; Hx Alcohol Use: No Hx Substance Use: No Preferred Language: Divehi Communication Ability: Effective Visual Impairment: No Limitations Deputy Chief Sheriff Required: No Beliefs That Will Affect Care: None marital status: Current Living Situation: Spouse current occupational status: retired Other Information That Helps Us Care for You: No Feels Safe at Home: Yes Safety Concerns: Feels Safe At This Time caffeine: Yes Dental Care, Regularly: Yes Physical Activity Frequency: Does not Exercise Seatbelt Use: always Sunscreen Use: Yes Review of Systems Constitutional: no fever and no chills Respiratory: no cough and no dyspnea Cardiovascular: no chest pain and no dyspnea Gastrointestinal: + abdominal pain Musculoskeletal: + back pain Physical Exam Constitutional: well developed, well nourished and + thin; no acute distress Respiratory: normal respiratory effort, lungs clear to auscultation Gastrointestinal (Abdomen): Percussion/Palpation: abdomen soft; abdomen nontender, no guarding and abdomen not rigid Skin: no rashes, warm and dry Results & Data ([facility]) Vital Signs (Past 12 Hours) Vital Signs Temp Pulse Resp BP BP Pulse Ox 05/08/20 07:23 36.8 C 80 16 83/44 L 95 05/08/20 03:31 36.4 C L 73 17 73/45 L 95 05/07/20 23:51 36.4 C L 68 17 101/63 92 Laboratory Results 05/08/20 05/08/20 05/08/20 Range/Units 08:47 08:47 06:18 WBC 4.87 (4.8-10.8) K/uL RBC 3.63 L (4.7-6.1) M/uL Hgb 12.7 L (14.0-18.0) g/dL Hct 37.0 L (42-52) % MCV 101.9 H (80-100) fL MCH 35.0 H (25-34) pg MCHC 34.3 (32-36) g/dL RDW Std Deviation 51.7 H (36.4-46.3) fL RDW Coeff of Cathy 13.7 (11.5-14.5) % Plt Count 178 (130-400) K/uL MPV 11.2 H (7.4-10.4) fL Immature Gran % (Auto) 0.0 % Neut % (Auto) 60.8 % Lymph % (Auto) 23.4 % [place] % (Auto) 14.0 % Eos % (Auto) 1.6 % Baso % (Auto) 0.2 % Neut # (Auto) 2.96 (1.4-6.5) K/uL Lymph # (Auto) 1.14 L (1.2-3.4) K/uL [place] # (Auto) 0.68 H (0.11-0.59) K/uL Eos # (Auto) 0.08 (0-0.5) K/uL Baso # (Auto) 0.01 (0-0.2) K/uL Immature Gran # (Auto) 0.00 (0.00-0.02) K/uL PT (9.0-12.0) Seconds INR (0.9-1.1) APTT (21.0-31.0) Seconds PTT Ratio Sodium (136-145) mmol/L Potassium (3.5-5.1) mmol/L Chloride (98-107) mmol/L Carbon Dioxide (21-32) mmol/L Anion Gap (3-11) BUN (7-18) mg/dl Creatinine (0.6-1.4) mg/dl Est Cr Clr Drug Dosing Est GFR ( Amer) Est GFR (Non-Af Amer) BUN/Creatinine Ratio (10-20) Glucose (70-99) mg/dl Lactate 1.5 (0.4-2.0) mmol/L Calcium (8.5-10.1) mg/dl Phosphorus (2.5-4.9) mg/dl Magnesium (1.8-2.4) mg/dl Total Bilirubin (0.2-1) mg/dl Direct Bilirubin (0-0.2) mg/dl AST (15-37) U/L ALT (12-78) U/L Alkaline Phosphatase (45-117) U/L NT-Pro-B Natriuret Pep (0-1800) pg/ml Total Protein (6.4-8.2) gm/dl Albumin (3.4-5.0) gm/dl Globulin (2.5-4.0) gm/dl Albumin/Globulin Ratio (0.9-2) Lipase (73-393) U/L TSH (0.300-4.500) uIu/ml Cortisol AM Sample 12.18 (4.3-22.4) mcg/dl Urine Color Urine Appearance (Clear) Urine pH (4.5-7.5) Ur Specific Mccoll (1.000-1.030) Urine Protein (Negative) Urine Glucose (UA) (Negative) Urine Ketones (Negative) Urine Blood (Negative) Urine Nitrite (Negative) Urine Bilirubin (Negative) Urine Urobilinogen (Negative) Ur Leukocyte Esterase (Negative) 05/08/20 05/07/20 05/07/20 Range/Units 06:18 16:07 15:20 WBC (4.8-10.8) K/uL RBC (4.7-6.1) M/uL Hgb (14.0-18.0) g/dL Hct (42-52) % MCV (80-100) fL MCH (25-34) pg MCHC (32-36) g/dL RDW Std Deviation (36.4-46.3) fL RDW Coeff of Cathy (11.5-14.5) % Plt Count (130-400) K/uL MPV (7.4-10.4) fL Immature Gran % (Auto) % Neut % (Auto) % Lymph % (Auto) % [place] % (Auto) % Eos % (Auto) % Baso % (Auto) % Neut # (Auto) (1.4-6.5) K/uL Lymph # (Auto) (1.2-3.4) K/uL [place] # (Auto) (0.11-0.59) K/uL Eos # (Auto) (0-0.5) K/uL Baso # (Auto) (0-0.2) K/uL Immature Gran # (Auto) (0.00-0.02) K/uL PT 11.6 (9.0-12.0) Seconds INR 1.1 (0.9-1.1) APTT 31.0 (21.0-31.0) Seconds PTT Ratio 1.1 Sodium 136 (136-145) mmol/L Potassium 4.1 (3.5-5.1) mmol/L Chloride 105 (98-107) mmol/L Carbon Dioxide 21 (21-32) mmol/L Anion Gap 11.0 (3-11) BUN 88 H (7-18) mg/dl Creatinine 2.89 H (0.6-1.4) mg/dl Est Cr Clr Drug Dosing 16.8 Est GFR ( Amer) 21.6 Est GFR (Non-Af Amer) 18.7 BUN/Creatinine Ratio 30.5 H (10-20) Glucose 66 L (70-99) mg/dl Lactate (0.4-2.0) mmol/L Calcium 8.4 L (8.5-10.1) mg/dl Phosphorus 6.2 H (2.5-4.9) mg/dl Magnesium 2.5 H (1.8-2.4) mg/dl Total Bilirubin 1.0 (0.2-1) mg/dl Direct Bilirubin 0.4 H (0-0.2) mg/dl AST 32 (15-37) U/L ALT 34 (12-78) U/L Alkaline Phosphatase 117 (45-117) U/L NT-Pro-B Natriuret Pep (0-1800) pg/ml Total Protein 6.6 (6.4-8.2) gm/dl Albumin 3.0 L (3.4-5.0) gm/dl Globulin (2.5-4.0) gm/dl Albumin/Globulin Ratio (0.9-2) Lipase (73-393) U/L TSH 3.710 (0.300-4.500) uIu/ml Cortisol AM Sample (4.3-22.4) mcg/dl Urine Color Yellow Urine Appearance Clear (Clear) Urine pH 5.0 (4.5-7.5) Ur Specific Mccoll 1.010 (1.000-1.030) Urine Protein Negative (Negative) Urine Glucose (UA) Negative (Negative) Urine Ketones Negative (Negative) Urine Blood Negative (Negative) Urine Nitrite Negative (Negative) Urine Bilirubin Negative (Negative) Urine Urobilinogen Negative (Negative) Ur Leukocyte Esterase Negative (Negative) 05/07/20 05/07/20 05/07/20 Range/Units 15:20 15:20 15:20 WBC 6.91 (4.8-10.8) K/uL RBC 4.21 L (4.7-6.1) M/uL Hgb 14.9 (14.0-18.0) g/dL Hct 42.0 (42-52) % MCV 99.8 (80-100) fL MCH 35.4 H (25-34) pg MCHC 35.5 (32-36) g/dL RDW Std Deviation 49.3 H (36.4-46.3) fL RDW Coeff of Cathy 13.6 (11.5-14.5) % Plt Count 228 (130-400) K/uL MPV 11.2 H (7.4-10.4) fL Immature Gran % (Auto) 0.1 % Neut % (Auto) 66.6 % Lymph % (Auto) 23.2 % [place] % (Auto) 8.5 % Eos % (Auto) 1.3 % Baso % (Auto) 0.3 % Neut # (Auto) 4.60 (1.4-6.5) K/uL Lymph # (Auto) 1.60 (1.2-3.4) K/uL [place] # (Auto) 0.59 (0.11-0.59) K/uL Eos # (Auto) 0.09 (0-0.5) K/uL Baso # (Auto) 0.02 (0-0.2) K/uL Immature Gran # (Auto) 0.01 (0.00-0.02) K/uL PT (9.0-12.0) Seconds INR (0.9-1.1) APTT (21.0-31.0) Seconds PTT Ratio Sodium 132 L (136-145) mmol/L Potassium 3.7 (3.5-5.1) mmol/L Chloride 98 (98-107) mmol/L Carbon Dioxide 22 (21-32) mmol/L Anion Gap 12.0 H (3-11) BUN 90 H (7-18) mg/dl Creatinine 2.66 H (0.6-1.4) mg/dl Est Cr Clr Drug Dosing Not Reportable Est GFR ( Amer) 23.9 Est GFR (Non-Af Amer) 20.6 BUN/Creatinine Ratio 33.9 H (10-20) Glucose 91 (70-99) mg/dl Lactate (0.4-2.0) mmol/L Calcium 9.3 (8.5-10.1) mg/dl Phosphorus (2.5-4.9) mg/dl Magnesium (1.8-2.4) mg/dl Total Bilirubin 1.0 (0.2-1) mg/dl Direct Bilirubin (0-0.2) mg/dl AST 37 (15-37) U/L ALT 43 (12-78) U/L Alkaline Phosphatase 163 H (45-117) U/L NT-Pro-B Natriuret Pep 93514 H (0-1800) pg/ml Total Protein 8.1 (6.4-8.2) gm/dl Albumin 3.9 (3.4-5.0) gm/dl Globulin 4.2 H (2.5-4.0) gm/dl Albumin/Globulin Ratio 0.9 (0.9-2) Lipase 161 (73-393) U/L TSH (0.300-4.500) uIu/ml Cortisol AM Sample (4.3-22.4) mcg/dl Urine Color Urine Appearance (Clear) Urine pH (4.5-7.5) Ur Specific Mccoll (1.000-1.030) Urine Protein (Negative) Urine Glucose (UA) (Negative) Urine Ketones (Negative) Urine Blood (Negative) Urine Nitrite (Negative) Urine Bilirubin (Negative) Urine Urobilinogen (Negative) Ur Leukocyte Esterase (Negative)
--- NOTE | 2020-05-08 10:03 | XCELERA ---
[id number]
[2020-05-08] MEDS: CALCITRIOL 0.25 MCG CAPSULE PO SCH (10:38)
--- NOTE | 2020-05-08 10:42 | Orthopedic Consultation ---
Date of Consultation May 08, 2020 Assessment & Plan (1) Lumbar stenosis with neurogenic claudication: At this point the findings on the CT scan are not new this is a chronic problem for the patient. On suggest physical therapy and Occupational Therapy. Pain control measures as well as DVT prophylaxis should also be considered there is no indication for surgical invention at this point. I reviewed the films with Dr. Toney and the plan and he agrees. History of Present Illness Reason for Consultation: . Attending Physician: Jose M Brooks MD History of Present Illness Patient is a 89-year-old male history single for thoracolumbar fusion. He presented to emergency room with flank pain on the right-hand side. He is not having any radicular complaints going down his legs. He really is not complaining of central back pain. CT scan of the abdomen pelvis was performed that revealed possible migration of the screws in T12. He has complaints of neck pain but no juan carlos radicular complaints in his upper extremities. He does periodically get numbness in the legs themselves which is been chronic. He denies any other numbness, tingling, or paresthesias. Allergies Allergy/AdvReac Type Severity Reaction Status Date / Time alfuzosin [From Uroxatral] Allergy PENILE Verified 05/07/20 19:28 SWELLING gabapentin [From Neurontin] AdvReac Severe fluid Verified 05/07/20 14:15 retention latex AdvReac Unknown RED PLUMMER Verified 05/07/20 14:15 ON SKIN Home Medications Home Medications Medication Instructions Recorded Confirmed Type aspirin 81 mg tablet,delayed 81 mg PO DAILY 04/03/19 05/07/20 History release travoprost 0.004 % eye drops 1 drops OPR QPM 04/04/19 05/07/20 History albuterol sulfate 90 mcg/actuation 1 - 2 puffs INHALATION QAM PRN #1 07/15/19 05/07/20 History aerosol inhaler gm Azopt 1 drp OPHTHALMIC (EYE) BID 09/05/19 05/07/20 History docusate sodium [Stool Softener] 100 mg PO QPM PRN 09/05/19 05/07/20 History losartan 50 mg PO QAM 09/05/19 05/07/20 History ipratropium 0.5 mg-albuterol 3 mg 3 ml INH QID #360 ml 11/04/19 05/07/20 Rx (2.5 mg base)/3 mL nebulization soln tramadol 50 mg tablet 50 mg PO Q6H PRN #30 tab 11/13/19 05/07/20 Rx atenolol 25 mg tablet 25 mg PO HS #90 tab 11/19/19 05/07/20 Rx furosemide 80 mg tablet 80 mg PO QAM #180 tab 11/19/19 05/07/20 Rx trazodone 50 mg tablet 50 mg PO HS #90 tab 12/13/19 05/07/20 Rx linaclotide 290 mcg capsule 290 mcg PO DAILY #30 cap 03/18/20 05/07/20 Rx citalopram 10 mg tablet 10 mg PO DAILY #30 tab 04/06/20 05/07/20 Rx furosemide 40 mg tablet 40 mg PO QAM #90 tab 04/08/20 05/07/20 Rx simvastatin 10 mg tablet 10 mg PO HS #90 tab 05/05/20 05/07/20 Rx calcitriol 0.5 mcg PO 3XWK 05/07/20 05/07/20 History Patient History Medical History Balance problem uses walker Balanitis Basal cell carcinoma of skin of face HX OF Chronic diastolic CHF (congestive heart failure) Chronic kidney disease, stage IV (severe) under surveillance; baseline creatinine 2-2.3 range History of basal cell carcinoma History of glaucoma History of neoplasm of uncertain behavior of skin History of pneumonia Hx of cataract Hypercholesterolemia Hyponatremia HISTORY OF Malignant melanoma of back Restrictive lung disease Secondary hyperparathyroidism Surgical History History of back surgery MULTIPLE, + FUSION HX History of bilateral knee arthroplasty History of carpal tunnel surgery of left wrist History of carpal tunnel surgery of right wrist History of colonoscopy History of repair of left rotator cuff History of repair of right rotator cuff History of repair of rotator cuff History of shoulder surgery History of surgical procedure Hand incision tendon sheath of a finger History of tonsillectomy S/P cervical spinal fusion 09/16/19 Dr. Kip Toney- #1 anterior cervical discectomy with bilateral foraminotomies C3 and C4. #2 anterior cervical arthrodesis C3-C4. #3 placement of Spira 8 mm cage filled with DBM at C3-4 and #4 application of andrade plate and screws across C3-4 Status post repair of nerve History of decompression median nerve at carpal tunnel Family History Mother Coronary heart disease Diabetes Myocardial infarction Father Squamous cell carcinoma of skin Denies family history of Ovarian cancer Prostate cancer Breast cancer Colorectal cancer Social History Smoking Status: Unknown if ever smoked Age Started Using Tobacco: 22; Age Quit Using Tobacco: 82; packs per day: 1; Hx Alcohol Use: No Hx Substance Use: No Preferred Language: Albanian Communication Ability: Effective Visual Impairment: No Limitations 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 He has a well-healed midline surgical incision along the back itself. His lower extremity motor exam reveals no focal atrophy he has full strength in the quadriceps, anterior tibialis, gastrocsoleus complex. His sensation is intact to light touch proprioception is intact. His calves are supple nontender his abdomen supple nontender. He is nontender along the spine itself. Results & Data ([facility]) Vital Signs (Past 12 Hours) Vital Signs Temp Pulse Resp BP BP Pulse Ox 05/08/20 07:23 36.8 C 80 16 83/44 L 95 05/08/20 03:31 36.4 C L 73 17 73/45 L 95 05/07/20 23:51 36.4 C L 68 17 101/[address] scan of the abdomen pelvis was reviewed and compared to plain films from our office from June 2018. The position of the screws is identical. While there had been some superior migration from initial placement of the screws in T12 this is not a new finding and is chronic in nature.
[2020-05-08] MEDS: ACETAMINOPHEN 325 MG TAB PO PRN (10:45)
[2020-05-08] MEDS: CITALOPRAM 20 MG TAB PO SCH (11:00)
[2020-05-08] MEDS: HYDROmorphone INJ 0.5 MG/0.5 ML SYR IV PRN (12:24)
[2020-05-08] MEDS: PIPERACILLIN/TAZOBACTAM 3.375 GM in DEXTROSE 5% 100 ML IV SCH (12:31)
--- NOTE | 2020-05-08 14:09 | Electrocardiogram Report ---
Test Reason : Blood Pressure : / mmHG Vent. 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
[2020-05-08] MEDS ORDERED: PROPOFOL IV EMULSION 10 MG/ML 20 ML VIAL IV ONE (15:48)
[2020-05-08] MEDS ORDERED: ONDANSETRON INJ 2 MG/ML 2 ML VIAL ONE (15:48)
[2020-05-08] MEDS ORDERED: LIDOCAINE HCL 2% 2 ML VIAL/AMP(20MG/ML) INFIL ONE (15:48)
[2020-05-08] MEDS ORDERED: DEXAMETHASONE SOD INJ 4 MG/ML VIAL ONE (15:48)
[2020-05-08] MEDS ORDERED: fentaNYL citrate 100 MCG/2 ML VIAL ONE (15:49)
--- NOTE | 2020-05-08 15:51 | History & Physical Bridge Note ---
Date of Service May 08, 2020 History & Physical Bridge Note I have examined the patient, reviewed the History & Physical and in the interval since the performance of the History & Physical I have noted the following changes of clinical significance: no changes noted. EUS and ERCP have been requested for evalaution of an abnormal MRCP. I have discussed the risks to include bleeding, infection, perforation, pain, pancreatitis, failed biliary cannulation and need for follow-up studies.
[2020-05-08] MEDS ORDERED: INDOMETHACIN 50 MG SUPP PR ONE ×2 (15:53→16:01)
[2020-05-08] MEDS ORDERED: NORMOSOL-R 1,000 ML IV ONE (16:49)
--- NOTE | 2020-05-08 16:54 | Hospitalist Progress Note ---
Date of Service May 08, 2020 Assessment & Plan (1) Choledocholithiasis: MRCP shows 11mm CBD filling defect. - Plan for ERCP today with GI. - Continue Zosyn - Follow LFTs (2) Hypotension: Blood pressure was low (90/50s) on admission, and even lower overnight. - Admission team felt it was hypovolemia and medications. - Today, his BP is again quite low (as low as 80/50). Despite low BP, he has no signs/symptoms of end-organ damage. Mentation is good, UOP is good, lactate normal. - Seen by cardiology with thought he was hypovolemic. - Will give more IV fluids and monitor volume status. (3) Chronic renal disease, stage III: Baseline Cr ~2.3 - 3.0, eGFR 20. - At baseline presently, though on the higher end. - Giving IV fluids for his hypotension. - Monitor Cr (4) Chronic diastolic CHF (congestive heart failure): Echo on 05/08 showed EF 65 - 70%. Follows with Dr. Lemons in the clinic. - Hold Lasix - Hold losartan - Hold ASA for possible surgery (5) Obstructive sleep apnea: CPAP HS (6) Depression with anxiety: - Continue citalopram and trazodone (7) DVT prophylaxis: SCDs - Low DVT risk per admission calculator & in case he needs surgery Admission and Anticipated Discharge Date Admission Date: May 07, 2020 Subjective Patient feels well overall. No lightheadedness/dizziness. Tired from overnight events. Reports no fevers/chills, chest pain, shortness of breath, abdominal pain, nausea, or vomiting. Physical Exam Constitutional: WD/WN, vitals as above Eyes: EOM intact bilaterally; no conjunctival abnormality ENMT: external ear and nose normal, oropharynx normal Neck: trachea midline, no thyromegaly normal visual inspection Respiratory: normal respiratory effort, lungs clear to auscultation no respiratory distress Cardiovascular: RRR, no murmur, no edema Gastrointestinal (Abdomen): Inspection/Auscultation: abdomen normal to inspection; abdomen not distended Musculoskeletal: no cyanosis or clubbing, extremities motor strength 5/5 Skin: no rashes, warm and dry Neurologic: moves all extremities and awake Psychiatric: Orientation: alert, oriented to person and cooperative Results & Data Results & Data ([facility]) Vital Signs (Past 12 Hours) Vital Signs Temp Pulse Pulse Resp BP BP Pulse Ox 05/08/20 15:02 36.5 C 79 20 83/52 L 96 05/08/20 12:50 36.7 C 67 16 88/54 L 96 05/08/20 07:23 36.8 C 80 16 83/44 L 95 PG Care Time/CCT Total # of Minutes Spent Total Time Spent with Patient: Total time spent is greater than 50% in coordination of care (as documented) at patient's floor/unit and/or counseling patient: Coding Level of Care Code 74748 Subseq Hosp Care Lvl 3 Diagnoses Choledocholithiasis K80.50 Hypotension I95.9 Chronic renal disease, stage III N18.3 Chronic diastolic CHF (congestive heart failure) I50.32 Obstructive sleep apnea G47.33 Depression with anxiety F41.8 DVT prophylaxis Z29.9
--- NOTE | 2020-05-08 17:35 | Anesthesiology Consultation ---
Date of Service May 08, 2020 Assessment & Plan ASA ASA4 Proposed Anesthesia Anesthesia Type: General Risk / Benefits Reviewed With: PT / POA / Parent / Guardian, Accepts Plan and Informed Consent Obtained History Surgery Operation Date: 05/08/20 10:20 Proposed Procedures p Endoscopic Retrograde Cholangiopancreatogram - Nunu Marshall Height/Weight Height: 5 ft 10 in Weight: 65.9 kg Allergies Allergy/AdvReac Type Severity Reaction Status Date / Time alfuzosin [From Uroxatral] Allergy PENILE Verified 05/07/20 19:28 SWELLING gabapentin [From Neurontin] AdvReac Severe fluid Verified 05/07/20 14:15 retention latex AdvReac Unknown RED PLUMMER Verified 05/07/20 14:15 ON SKIN Medications Home Medications Medication Instructions Recorded Confirmed Last Taken aspirin 81 mg tablet,delayed 81 mg PO DAILY 04/03/19 05/07/20 09/15/19 08:00 release travoprost 0.004 % eye drops 1 drops OPR QPM 04/04/19 05/07/20 09/15/19 22:00 albuterol sulfate 90 mcg/actuation 1 - 2 puffs INHALATION QAM PRN #1 07/15/19 05/07/20 Unknown aerosol inhaler gm Azopt 1 drp OPHTHALMIC (EYE) BID 09/05/19 05/07/20 09/16/19 04:30 docusate sodium [Stool Softener] 100 mg PO QPM PRN 09/05/19 05/07/20 09/16/19 04:30 losartan 50 mg PO QAM 09/05/19 05/07/20 09/15/19 08:00 ipratropium 0.5 mg-albuterol 3 mg 3 ml INH QID #360 ml 11/04/19 05/07/20 Unknown (2.5 mg base)/3 mL nebulization soln tramadol 50 mg tablet 50 mg PO Q6H PRN #30 tab 11/13/19 05/07/20 Unknown atenolol 25 mg tablet 25 mg PO HS #90 tab 11/19/19 05/07/20 Unknown furosemide 80 mg tablet 80 mg PO QAM #180 tab 11/19/19 05/07/20 Unknown trazodone 50 mg tablet 50 mg PO HS #90 tab 12/13/19 05/07/20 Unknown linaclotide 290 mcg capsule 290 mcg PO DAILY #30 cap 03/18/20 05/07/20 Unknown citalopram 10 mg tablet 10 mg PO DAILY #30 tab 04/06/20 05/07/20 Unknown furosemide 40 mg tablet 40 mg PO QAM #90 tab 04/08/20 05/07/20 Unknown simvastatin 10 mg tablet 10 mg PO HS #90 tab 05/05/20 05/07/20 Unknown calcitriol 0.5 mcg PO 3XWK 05/07/20 05/07/20 Unknown Active Medications Generic Name Dose Route Start Last Admin Trade Name Freq PRN Reason Stop Dose Admin Acetaminophen 650 mg 05/07/20 20:25 05/08/20 10:45 Acetaminophen 325 Mg Tab PO 06/06/20 20:24 650 mg Q4H PRN Administration Pain or Fever Brinzolamide 1 drops 05/07/20 21:00 05/08/20 07:47 Brinzolamide (Azopt) Ops 10 Ml Btl OP 06/06/20 20:59 1 drops BID MITRA Administration Calcitriol 0.5 mcg 05/08/20 09:00 05/08/20 10:38 Calcitriol 0.25 Mcg Capsule PO 06/07/20 08:59 0.5 mcg MoWeFr MITRA Administration Hydromorphone HCl 0.5 mg 05/07/20 19:23 05/08/20 12:24 Hydromorphone Inj 0.5 Mg/0.5 Ml Syr IV 05/21/20 19:22 0.5 mg Q1H PRN Administration Pain Piperacillin Sod/Tazobactam 115 mls @ 28.75 mls/hr 05/08/20 00:00 05/08/20 12:31 Sod 3.375 gm/ Dextrose IV 05/18/20 00:00 28.8 mls/hr Q12H MITRA Administration Protocol Miscellaneous Information 1 ea 05/07/20 17:24 05/07/20 17:55 Piperacill/Tazobac Consult Active N/A 06/06/20 17:23 1 ea UD PRN Administration Consult Simvastatin 10 mg 05/07/20 21:00 05/07/20 22:41 Simvastatin 10 Mg Tab PO 06/06/20 20:59 Not Given HS MITRA Travoprost 1 drops 05/07/20 21:00 05/07/20 22:40 Travoprost Z 0.004% Oph Soln 2.5 Ml Btl OPR 06/06/20 20:59 1 drops QPM MITRA Administration Trazodone HCl 50 mg 05/07/20 21:00 05/07/20 22:41 Trazodone Hcl 50 Mg Tab PO 06/06/20 20:59 Not Given HS MITRA NPO Date Last Intake of Fluids: 05/07/20 Time Last Intake of Fluids: 08:00 Date Last Intake of Solids: 05/07/20 Time Last Intake of Solids: 08:00 Past Medical History Medical History Balance problem uses walker Balanitis Basal cell carcinoma of skin of face HX OF Chronic diastolic CHF (congestive heart failure) Chronic kidney disease, stage IV (severe) under surveillance; baseline creatinine 2-2.3 range History of basal cell carcinoma History of glaucoma History of neoplasm of uncertain behavior of skin History of pneumonia Hx of cataract Hypercholesterolemia Hyponatremia HISTORY OF Malignant melanoma of back Restrictive lung disease Secondary hyperparathyroidism Exercise / Class Metabolic Activity II 4-5 Yardwork/Stairs/Walk up hill Past Family History Family History Mother Coronary heart disease Diabetes Myocardial infarction Father Squamous cell carcinoma of skin Denies family history of Ovarian cancer Prostate cancer Breast cancer Colorectal cancer Past Surgical History Surgical History History of back surgery MULTIPLE, + FUSION HX History of bilateral knee arthroplasty History of carpal tunnel surgery of left wrist History of carpal tunnel surgery of right wrist History of colonoscopy History of repair of left rotator cuff History of repair of right rotator cuff History of repair of rotator cuff History of shoulder surgery History of surgical procedure Hand incision tendon sheath of a finger History of tonsillectomy S/P cervical spinal fusion 09/16/19 Dr. Kip Toney- #1 anterior cervical discectomy with bilateral foraminotomies C3 and C4. #2 anterior cervical arthrodesis C3-C4. #3 placement of Spira 8 mm cage filled with DBM at C3-4 and #4 application of andrade plate and screws across C3-4 Status post repair of nerve History of decompression median nerve at carpal tunnel Past Anesthesia History No Hx of Anesthesia Complications and No Family Hx of Anesthesia Complications History of PONV No Hx of PONV and No Hx of Motion Sickness Social History Smoking Status: Unknown if ever smoked Hx Alcohol Use: No Alcohol type: wine alcohol intake frequency: 0-2 drinks per day (2 drinks/day) Hx Substance Use: No substance use type: does not use Review of Systems denies fever/cough/ colds/ chest pain/ +letha, pt with sob at baseline Constitutional: no fever and no chills Respiratory: no cough and no dyspnea denies LETHA Cardiovascular: no chest pain and no dyspnea on exertion Physical Exam Vital Signs Last Vital Signs Temp 36.5 C 05/08/20 15:02 Pulse 80 05/08/20 17:10 Resp 15 05/08/20 17:10 BP 79/43 L 05/08/20 17:10 Pulse Ox 98 05/08/20 17:10 ENMT Mouth: no TMJ abnormality and no dentition abnormality Thyromental Distance: > or= 3.5 Finger Breadths Mallampati Class: II Neck neck extension not limited Respiratory normal respiratory effort; no respiratory distress Auscultation: lungs clear to auscultation bilaterally Cardiovascular Rate/Rhythm: regular rate and regular rhythm Heart Sounds: + murmur (3/6 murmur) Neurologic moves all extremities Psychiatric Orientation: alert and oriented x 3 Testing Laboratory Results 05/08/20 06:18 05/08/20 06:18 PT 11.6 Seconds (9.0-12.0) 05/07/20 15:20 INR 1.1 (0.9-1.1) 05/07/20 15:20 APTT 31.0 Seconds (21.0-31.0) 05/07/20 15:20 Urine Color Yellow 05/07/20 16:07 Urine Appearance Clear (Clear) 05/07/20 16:07 Urine pH 5.0 (4.5-7.5) 05/07/20 16:07 Ur Specific [place] 1.010 (1.000-1.030) 05/07/20 16:07 Urine Protein Negative (Negative) 05/07/20 16:07 Urine Glucose (UA) Negative (Negative) 05/07/20 16:07 Urine Ketones Negative (Negative) 05/07/20 16:07 Urine Nitrite Negative (Negative) 05/07/20 16:07 Ur Leukocyte Esterase Negative (Negative) 05/07/20 16:07
[2020-05-08] MEDS ORDERED: fentaNYL citrate 100 MCG/2 ML VIAL IV PRN (17:37)
[2020-05-08] MEDS ORDERED: ATROPINE SULFATE 0.1 MG/ML 10ML SYR IV PRN (17:37)
[2020-05-08] MEDS ORDERED: ePHEDrine sulfate 50 MG/ML AMP IV PRN (17:37)
[2020-05-08] MEDS ORDERED: ONDANSETRON INJ 2 MG/ML 2 ML VIAL IV PRN (17:37)
[2020-05-08] MEDS ORDERED: HYDROmorphone INJ 2 MG/ML SYR/VIAL IV PRN (17:37)
--- NOTE | 2020-05-08 18:09 | GI REPORT ---
Patient Name: Brien Garay Procedure Date: 05/08/2020 5:17 PM Date of : 1930 Admit Type: Inpatient Age: 89 Gender: Male Attending MD: Nunu Marshall DO Procedure: Upper GI endoscopy Providers: Nunu Marshall DO Referring MD: FREDO CABA, Yanira Newton Md, Jose M Brooks Md Indications: Abnormal MRI of the GI tract Medicines: General Anesthesia Complications: No immediate complications. Estimated blood loss: Minimal. Estimated Blood Loss: Estimated blood loss was minimal. Procedure: Pre-Anesthesia Assessment: - Prior to the procedure, a History and Physical was performed, and patient medications, allergies and sensitivities were reviewed. The patient's tolerance of previous anesthesia was reviewed. - The risks and benefits of the procedure and the sedation options and risks were discussed with the patient. All questions were answered and informed consent was obtained. - Patient identification and proposed procedure were verified prior to the procedure by the physician, the nurse and the navy fighter pilot. The procedure was verified in the procedure room. - Pre-procedure physical examination revealed no contraindications to sedation. - ASA Grade Assessment: IV - A patient with severe systemic disease that is a constant threat to life. - After reviewing the risks and benefits, the patient was deemed in satisfactory condition to undergo the procedure. - The anesthesia plan was to use general anesthesia. - Immediately prior to administration of medications, the patient was re-assessed for adequacy to receive sedatives. - The heart rate, respiratory rate, oxygen saturations, blood pressure, adequacy of pulmonary ventilation, and response to care were monitored throughout the procedure. - The physical status of the patient was re-assessed after the procedure. After obtaining informed consent, the endoscope was passed under direct vision. Throughout the procedure, the patient's blood pressure, pulse, and oxygen saturations were monitored continuously. The Scope was introduced through the mouth, and advanced to the third part of duodenum. The upper GI endoscopy was accomplished without difficulty. The patient tolerated the procedure well. Findings: The upper third of the esophagus and middle third of the esophagus were normal. The esophagus and gastroesophageal junction were examined with white light. There were esophageal mucosal changes suspicious for short-segment Lopez's esophagus. These changes involved the mucosa at the upper extent of the gastric folds (43 cm from the incisors) extending to the Z-line (41 cm from the incisors). The maximum longitudinal extent of these esophageal mucosal changes was 2 cm in length. Biopsies were taken with a cold forceps for histology. The pathology specimen was placed into Bottle B. Estimated blood loss was minimal. Diffuse mild inflammation characterized by erythema and granularity was found in the entire examined stomach. Biopsies were taken with a cold forceps for histology. The pathology specimen was placed into Bottle A. Estimated blood loss was minimal. The examined duodenum was normal. Impression: - Normal upper third of esophagus and middle third of esophagus. 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 Biopsied. - Gastritis. Biopsied. - Normal examined duodenum. Recommendation: - Perform an upper endoscopic ultrasound (UEUS) today. - Await pathology results. Nunu Marshall D.O. Nunu Marshall, 05/08/2020 6:08:49 PM This report has been signed electronically. Note Initiated On: 05/08/2020 5:17 PM Number of Addenda: 0 I attest to the content of the Intraoperative Record and orders documented therein, exceptions below {[id number]}
[2020-05-08] MEDS ORDERED: LARYING-O-JET KIT (LTA) ONE (18:26)
[2020-05-08] MEDS ORDERED: SUCCINYLCHOLINE CHLORIDE 20 MG/ML 10 ML VIAL IV ONE (18:26)
--- NOTE | 2020-05-08 19:29 | GI REPORT ---
Patient Name: Brien Garay Procedure Date: 05/08/2020 5:16 PM Date of : 1930 Admit Type: Inpatient Age: 89 Gender: Male Attending MD: Nunu Marshall DO Procedure: Upper EUS Providers: Nunu Marshall DO Referring MD: FREDO CABA, Jose M Brooks Md, Yanira Newton Md Indications: Abnormal MRCP Medicines: General Anesthesia Complications: No immediate complications. Estimated blood loss: None. Estimated Blood Loss: Estimated blood loss: none. Procedure: Pre-Anesthesia Assessment: - Prior to the procedure, a History and Physical was performed, and patient medications, allergies and sensitivities were reviewed. The patient's tolerance of previous anesthesia was reviewed. - The risks and benefits of the procedure and the sedation options and risks were discussed with the patient. All questions were answered and informed consent was obtained. - Patient identification and proposed procedure were verified prior to the procedure by the physician, the nurse and the career technical education instructor. The procedure was verified in the procedure room. - Pre-procedure physical examination revealed no contraindications to sedation. - ASA Grade Assessment: IV - A patient with severe systemic disease that is a constant threat to life. - After reviewing the risks and benefits, the patient was deemed in satisfactory condition to undergo the procedure. - The anesthesia plan was to use general anesthesia. - Immediately prior to administration of medications, the patient was re-assessed for adequacy to receive sedatives. - The heart rate, respiratory rate, oxygen saturations, blood pressure, adequacy of pulmonary ventilation, and response to care were monitored throughout the procedure. - The physical status of the patient was re-assessed after the procedure. After obtaining informed consent, the endoscope was passed under direct vision. Throughout the procedure, the patient's blood pressure, pulse, and oxygen saturations were monitored continuously. The Scope was introduced through the mouth, and advanced to the second part of duodenum. The upper EUS was accomplished without difficulty. The patient tolerated the procedure well. Findings: ENDOSONOGRAPHIC FINDING: : Minimal hyperechoic material consistent with sludge was visualized endosonographically in the gallbladder. There was dilation in the common bile duct which measured up to 10 mm. There was no sign of significant endosonographic abnormality in the left lobe of the liver. Homogeneous parenchyma and no focal pathology were identified. There was no sign of significant endosonographic abnormality in the entire pancreas. The pancreatic duct measured up to 3 mm in diameter. No masses, no calcifications. No lymphadenopathy seen. There was no sign of significant endosonographic abnormality in the left adrenal gland. No adrenal gland enlargement was identified. A small amount of fluid, visualized as a hypoechoic feature, was found in the peritoneal cavity. An 8 mm hyperechoic polyp was identified endosonographically in the distal common bile duct. Impression: - Hyperechoic material consistent with sludge was visualized endosonographically in the gallbladder. - There was dilation in the common bile duct which measured up to 10 mm. - One 8 mm polyp was visualized endosonographically in the distal common bile duct. - There was no evidence of significant pathology in the left lobe of the liver. - There was no sign of significant pathology in the entire pancreas. - Endosonographic images of the left adrenal gland were unremarkable. - Ascites was found on endosonographic examination of the peritoneal cavity. - No specimens collected. Recommendation: - Perform an ERCP today. Nunu Marshall D.O. Nunu Marshall, 05/08/2020 7:29:28 PM This report has been signed electronically. Note Initiated On: 05/08/2020 5:16 PM Number of Addenda: 0 I attest to the content of the Intraoperative Record and orders documented therein, exceptions below {[id number]}
--- NOTE | 2020-05-08 19:45 | GI REPORT ---
Patient Name: Brien Garay Procedure Date: 05/08/2020 5:15 PM Date of : 1930 Admit Type: Inpatient Age: 89 Gender: Male Attending MD: Nunu Marshall DO Procedure: ERCP Providers: Nunu Marshall DO Referring MD: FREDO CABA, Yanira Newton Md, Jose M Brooks Md Indications: Abnormal MRCP Medicines: General Anesthesia Complications: No immediate complications. Estimated blood loss: Minimal. Estimated Blood Loss: Estimated blood loss was minimal. Procedure: Pre-Anesthesia Assessment: - Prior to the procedure, a History and Physical was performed, and patient medications, allergies and sensitivities were reviewed. The patient's tolerance of previous anesthesia was reviewed. - The risks and benefits of the procedure and the sedation options and risks were discussed with the patient. All questions were answered and informed consent was obtained. - Patient identification and proposed procedure were verified prior to the procedure by the physician, the nurse and the community program assistant. The procedure was verified in the procedure room. - Pre-procedure physical examination revealed no contraindications to sedation. - ASA Grade Assessment: IV - A patient with severe systemic disease that is a constant threat to life. - After reviewing the risks and benefits, the patient was deemed in satisfactory condition to undergo the procedure. - The anesthesia plan was to use general anesthesia. - After reviewing the risks and benefits, the patient was deemed in satisfactory condition to undergo the procedure in an ambulatory setting. - The anesthesia plan was to use general anesthesia. - Immediately prior to administration of medications, the patient was re-assessed for adequacy to receive sedatives. - The heart rate, respiratory rate, oxygen saturations, blood pressure, adequacy of pulmonary ventilation, and response to care were monitored throughout the procedure. - The physical status of the patient was re-assessed after the procedure. After obtaining informed consent, the scope was passed under direct vision. Throughout the procedure, the patient's blood pressure, pulse, and oxygen saturations were monitored continuously. The Scope was introduced through the mouth, and advanced to the duodenum and used to inject contrast into the bile duct. The ERCP was accomplished without difficulty. The patient tolerated the procedure well. Findings: The esophagus was successfully intubated under direct vision without detailed examination of the pharynx, larynx, and associated structures, and upper GI tract. The upper GI tract was grossly normal. The major papilla was normal. The ventral pancreatic duct was inadvertently cannulated with the short-nosed traction sphincterotome and 0.025 in guidewire without any complications. Elizabeth wire was left in place to aid in biliary cannulation and later place a pancreatic stent (double wire technique). The bile duct could not be cannulated with the short-nosed traction sphincterotome and multiple different guidewires (0.025 in Acrobat, 0.025 Dream wire and a 0.035 Delta wire were tried). A ventral pancreatic sphincterotomy was made with a monofilament Dreamtome sphincterotome using ERBE electrocautery. There was no post-sphincterotomy bleeding. The bile duct was then deeply cannulated with the short-nosed traction sphincterotome and angled 0.035 in Acrobat 2 guidewire. Contrast was injected. I personally interpreted the bile duct images. Contrast extended to the hepatic ducts. The main bile duct was diffusely dilated, secondary to a 10 mm stricture of the distal CBD (polyp as seen on EUS and MRCP). The largest diameter was 12 mm. The biliary sphincterotomy was extended with a monofilament Fusion OMNI sphincterotome using ERBE electrocautery. There was no post-sphincterotomy bleeding. Cells for cytology were obtained by brushing in the lower third of the main bile duct. The exposed portion of the intraductal polyp was biopsied with a cold forceps for histology. One 5 Fr by 7 cm pancreatic stent with a 3/4 external pigtail and no internal flaps was placed 7 cm into the ventral pancreatic duct. Clear fluid flowed through the stent. The stent was in good position. One 10 Fr by 8 cm biliary stent with a single external flap and a single internal flap was placed 8 cm into the common bile duct. Bile and sludge flowed through the stent. The stent was in good position. Indomethacin 100 mg was given via suppository to decrease the risk of post-ERCP pancreatitis (PEP). The endoscope was withdrawn from the patient. Impression: - The major papilla appeared normal. - A pancreatic septotomy was performed to aid in biliary access. - A biliary sphincterotomy was performed. - Cells for cytology obtained in the lower third of the main duct. - Biopsy was performed of the distal common bile duct (intraductal polyp). - One pancreatic stent was placed into the ventral pancreatic duct. - One biliary stent was placed into the common bile duct. - Indomethacin given to decrease risk of post-ERCP pancreatitis. Recommendation: - [facility] care. - Clear liquid diet today. - Use broad spectrum antibiotics for 5 days. - Await cytology results and await path results. - Patient will likely need OP referral to a tertiary care, perhaps the patient may benefit from a Spyglass procedure and RF ablation to the suspected intraductal polyp. Nunu Marshall D.O. Nunu Marshall, DO 05/08/2020 7:44:54 PM This report has been signed electronically. Note Initiated On: 05/08/2020 5:15 PM Number of Addenda: 0 I attest to the content of the Intraoperative Record and orders documented therein, exceptions below {[id number]}
--- NOTE | 2020-05-08 19:46 | Post Operative Brief Note ---
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
--- NOTE | 2020-05-08 19:48 | Communication Note ---
Date of Service: May 08, 2020 The patient underwent EUS, upper endoscopy and ERCP this evening. Findings Dilated common bile duct 8 to 10 mm intraductal polyp resulting in a distal common bile duct stricture Treatment Biliary sphincterotomy Biliary stent placed prophylactic pancreatic stent placed Cytology and biopsies obtained form the polyp Recommendations Patient may have clears tonight Avoid nonsteroidals and anticoagulation for 5 days if possible please Cipro for prophylaxis for 5 days Patient will need outpatient referral to a tertiary center possible spyglass procedure and perhaps intraductal RF ablation
--- NOTE | 2020-05-08 20:15 | Anesthesiology Progress Note ---
Date of Service May 08, 2020 Anesthesia Post Procedure Vital Signs Vital Signs: Temp Pulse Pulse Resp BP BP Pulse Ox 05/08/20 20:10 36.4 C L 84 18 92/57 L 94 05/08/20 20:00 76 12 85/56 L 94 05/08/20 19:50 74 12 88/60 L 95 05/08/20 19:42 36.4 C L 73 20 91/58 L 97 05/08/20 17:10 80 15 79/43 L 98 05/08/20 15:02 36.5 C 79 20 83/52 L 96 05/08/20 12:50 36.7 C 67 16 88/54 L 96 05/08/20 07:23 36.8 C 80 16 83/44 L 95 05/08/20 03:31 36.4 C L 73 17 73/45 L 95 05/07/20 23:51 36.4 C L 68 17 101/63 92 Pain Intensity Right Flank: Pain Intensity: 2 Transfer of Care Handoff Completed per policy Notes Mental Status: alert / awake / arousable Patient Amnestic to Procedure: Yes Nausea / Vomiting: adequately controlled Pain: adequately controlled Airway Patency, RR, SpO2: stable & adequate BP & HR: stable & adequate Hydration State: stable & adequate Anesthetic Complications: no major complications apparent and Pt Satisfied with anesthetic care Notes: The patient is awake and comfortable. His vital signs are the same as his preop values. Postop BSG was 80.
[2020-05-08] MEDS ORDERED: GLUCAGON FOR INJ 1 MG VIAL ONE (20:42)
[2020-05-08] MEDS ORDERED: IOVERSOL 50ml IV ONE (20:43)
[2020-05-08] MEDS: TRAZODONE HCL 50 MG TAB PO SCH (20:49)
[2020-05-08] MEDS: SIMVASTATIN 10 MG TAB PO SCH (20:49)
[2020-05-08] MEDS: TRAVOPROST Z 0.004% OPH SOLN 2.5 ML BTL OPR SCH (20:51)
--- NOTE | 2020-05-08 20:53 | Fluoroscopy Report ---
[place] ERCP biliary ductal CLINICAL HISTORY: Duct exploration. Common bile duct stone. COMPARISON STUDY: MRCP 05/07/2020. FLUOROSCOPY TIME: 3 minutes and 11 seconds. FINDINGS: 8 fluoroscopic spot images of the right upper quadrant demonstrate cannulation of the ampul la with placement of guidewires into the common bile duct and main pancreatic duct. This is followed by injection of contrast into the common bile duct and a balloon sweep. Common bile duct and main fowler creatic duct stents were placed and appear good position. IMPRESSION: Fluoroscopy provided for ERCP. ACT 112: Negative or not required by law. Electronically signed by: Bryan Moulton M.D. 05/08/2020 8:52 PM
[2020-05-09] MEDS: PIPERACILLIN/TAZOBACTAM 3.375 GM in DEXTROSE 5% 100 ML IV SCH ×2 (01:03→14:22)
[2020-05-09 07:34] LABS: Hematocrit (blood only) 40.6 % (42-52); Hemoglobin 13.8 g/dL (14.0-18.0); Mean Corpuscular Hemoglobin 35.1 pg (25-34); Mean Corpuscular Volume 103.3 fL (80-100); Mean Platelet Volume 11.5 fL (7.4-10.4); Platelet Count 166 K/uL (130-400); RDW Standard Deviation 53.1 fL (36.4-46.3); Red Blood Count 3.93 M/uL (4.7-6.1); White Blood Count 5.86 K/uL (4.8-10.8)
[2020-05-09 08:12] LABS: Albumin Globulin Ratio 0.8 (0.9-2); Albumin Level 3.1 gm/dl (3.4-5.0); BUN Creatinine Ratio 26.8 (10-20); Bilirubin,Total 0.9 mg/dl (0.2-1); Calcium 8.8 mg/dl (8.5-10.1); Creatinine Clr Calc Pharmacy 12.6 ml/min; Est GFR (African American) 15.8; Est GFR (Non-African American) 13.6; Globulin 3.9 gm/dl (2.5-4.0); Magnesium 2.5 mg/dl (1.8-2.4); Potassium 4.8 mmol/L (3.5-5.1)
--- NOTE | 2020-05-09 08:49 | Surgery Progress Note ---
Date of Service May 09, 2020 Assessment & Plan (1) Common bile duct filling defect, non-specific: Patient doing well clinically and there is no indication for cholecystectomy at this time. I will defer to GI for further work-up of the biliary polyp and subsequent treatment. We will sign off. Please call us with any questions or concerns. Admission and Anticipated Discharge Date Admission Date: May 07, 2020 Subjective Patient awake. Feeling well today with no new complaints. Denies abdominal pain or nausea Physical Exam Physical Exam: Alert no acute distress Abdomen is soft. Nontender. No guarding rebound or rigidity. Nondistended. Results & Data ([facility]) Vital Signs (Past 12 Hours) Vital Signs Temp Pulse Pulse Resp BP Pulse Ox 05/09/20 08:23 36.5 C 92 H 24 91/41 L 95 05/09/20 03:48 36.4 C L 87 20 106/71 92 05/08/20 23:10 36.2 C L 81 17 99/66 L 95 05/08/20 20:53 96 PG Care Time/CCT Total # of Minutes Spent Total Time Spent with Patient: Total time spent is greater than 50% in coordination of care (as documented) at patient's floor/unit and/or counseling patient: Coding Level of Care Code 41132 Subseq Hosp Care Lvl 2 Diagnoses Common bile duct filling defect, non-specific R93.2
[2020-05-09 10:16] LABS: Albumin Level 3.1 gm/dl (3.4-5.0); Bilirubin Direct 0.4 mg/dl (0-0.2); Bilirubin,Total 0.9 mg/dl (0.2-1)
[2020-05-09] MEDS: LACTATED RINGER'S 1,000 ML IV SCH ×2 (11:06→19:30)
[2020-05-09] MEDS: CITALOPRAM 20 MG TAB PO SCH (11:11)
[2020-05-09] MEDS: BRINZOLAMIDE (AZOPT) OPS 10 ML BTL OP SCH ×2 (11:11→20:59)
[2020-05-09 11:19] LABS: HCO3 ABG 13 mmol/L (19-24); Oxygen Saturation ABG 97.4 % (90-95); PCO2 ABG 24 mmHg (35-46); PO2 ABG 95 mmHg (80-95); pH ABG 7.34 (7.35-7.45)
[2020-05-09 11:22] LABS: Allen Test Pos (Pos)
--- NOTE | 2020-05-09 12:13 | Hospitalist Progress Note ---
Date of Service May 09, 2020 Assessment & Plan (1) Choledocholithiasis: MRCP shows 11mm CBD filling defect. - Plan for ERCP today with GI. - Continue Zosyn - Follow LFTs (2) Acute kidney failure: Patient is in acute renal failure, concern over possibility of ATN. will consult nephro, patient not maiing much urine will start IVF. will closely monitor patient and will repeat BMP in afternoon. (3) Hypotension: Blood pressure was low (90/50s) on admission, and even lower overnight. - Admission team felt it was hypovolemia and medications. - Today, his BP is again quite low (as low as 80/50). Despite low BP, he has no signs/symptoms of end-organ damage. Mentation is good, UOP is good, lactate normal. - Seen by cardiology with thought he was hypovolemic. - Will give more IV fluids and monitor volume status. (4) Chronic renal disease, stage III: Baseline Cr ~2.3 - 3.0, eGFR 20. - At baseline presently, though on the higher end. - Giving IV fluids for his hypotension. - Monitor Cr (5) Chronic diastolic CHF (congestive heart failure): Echo on 05/08 showed EF 65 - 70%. Follows with Dr. Lemons in the clinic. - Hold Lasix - Hold losartan - Hold ASA for possible surgery (6) Obstructive sleep apnea: CPAP HS (7) Depression with anxiety: - Continue citalopram and trazodone (8) DVT prophylaxis: SCDs - Low DVT risk per admission calculator & in case he needs surgery Admission and Anticipated Discharge Date Admission Date: May 07, 2020 Subjective Patient reports feeling dry. He is hungry. His is at bedside Review of Systems Review of Systems: All systems reviewed & are unremarkable except as noted in HPI & below Physical Exam Physical Exam: Constitutional: WD/WN, vitals as above Eyes: EOM intact bilaterally; no conjunctival abnormality ENMT: external ear and nose normal, oropharynx normal Neck: trachea midline, no thyromegaly normal visual inspection Respiratory: normal respiratory effort, lungs clear to auscultation no respiratory distress Cardiovascular: RRR, no murmur, no edema Gastrointestinal (Abdomen): Inspection/Auscultation: abdomen normal to inspection; abdomen not distended Musculoskeletal: no cyanosis or clubbing, extremities motor strength 5/5 Skin: no rashes, warm and dry Neurologic: moves all extremities and awake Psychiatric: Orientation: alert, oriented to person and cooperative Results & Data Results & Data ([facility]) Vital Signs (Past 12 Hours) Vital Signs Temp Pulse Pulse Resp BP Pulse Ox 05/09/20 11:37 36.5 C 94 H 16 91/53 L 94 05/09/20 08:23 36.5 C 92 H 24 91/41 L 95 05/09/20 03:48 36.4 C L 87 20 106/71 92 PG Care Time/CCT Total # of Minutes Spent Total Time Spent with Patient: Total time spent is greater than 50% in coordination of care (as documented) at patient's floor/unit and/or counseling patient: Coding Level of Care Code 70818 Subseq Hosp Care Lvl 3 Diagnoses Choledocholithiasis K80.50 Acute kidney failure N17.9 Hypotension I95.9 Chronic renal disease, stage III N18.3 Chronic diastolic CHF (congestive heart failure) I50.32 Obstructive sleep apnea G47.33 Depression with anxiety F41.8 DVT prophylaxis Z29.9 Time Spent (min) 35
--- NOTE | 2020-05-09 15:21 | Nephrology Consultation ---
Date of Consultation May 09, 2020 Assessment & Plan (1) DEANGELO (acute kidney injury): Oliguric. Consistent with ischemic ATN in the setting of hypotension and NSAID use. Baseline kidney dysfunction advanced. Thankfully there is no emergent role for [employer]. Volume status remains intravascularly depleted. Poor oral intake. Continue IVF but avoid positive fluid balance >1 L/d. Smith to gravity. CT abdomen and pelvis reviewed. Losartan and furosemide have been appropriately held. Medications are dosed appropriately for kidney dysfunction. Document strict I/O's. Monitor metabolic profile twice daily. (2) CKD (chronic kidney disease), stage IV: Baseline creatinine 2.0-2.4 mg/dL. Complications include sPTH managed with calcitriol. (3) Hypotension: BP improved. BP soft but hemodynamics stable. Maintain slightly positive fluid balance. Hold losartan. Atenolol with hold parameters. (4) Chronic diastolic CHF (congestive heart failure): Followed in the CHF clinic as outpatient. Close observation of volume status and avoid significantly positive fluid balance. Volume status acceptable at this time. Stop IVF when tolerating adequate PO. History of Present Illness Reason for Consultation: DEANGELO/CKD Requesting Physician: Ethan Harris Attending Physician: Ethan Harris History of Present Illness Mr. Garay is an 89 year-old male with CKD class IV. Serum creatinine at baseline has been approximately 2.2-2.4 mg/dL. This is consistent with estimated glomerular filtration rate of approximately 25-30 ml/min. Medical history is notable for atrial fibrillation, chronic diastolic CHF, pulmonary hypertension, arterial hypertension, OA/DJD, spinal stenosis, COPD, LETHA on CPAP, and dyslipidemia. I saw Brien in the nephrology clinic on May 07 for routine follow up. Unfortunately, he was not doing well at that time and was sent to the ER directly from the office for evaluation. Brien was suffering from severe right sided flank and lower back pain. Symptoms had been progressively worsening over several weeks. Cervical discectomy and fusion performed by Dr. Toney on September 16. Post operative urinary retention noted at that time. Brien has continued to follow with urology regarding persistent LUTS. ER evaluation, was notable for evidence of CBD obstruction. MRCP and ERCP subsequently performed. Antibiotic therapy with Zosyn has been provided. IV fluids have been provided. Persistent hypotension noted since admission. SBP in the 70's on the and . ERCP yesterday included pancreatic septotomy, biliary sphincterotomy, biopsy of a distal bile duct polyp, pancreatic stent placement and stent placement to CBD. Post procedure indomethacin provided for post procedure pancreatitis. Brien unfortunately continues to struggle with abdominal and back pain. He feels weak. Appetite is poor. Mild intermittent nausea. No fevers or chills. He was seen and evaluated with his at the bedside this morning. Brien has been oliguric since the procedure. Smith catheter placed. Allergies Allergy/AdvReac Type Severity Reaction Status Date / Time alfuzosin [From Uroxatral] Allergy PENILE Verified 05/07/20 19:28 SWELLING gabapentin [From Neurontin] AdvReac Severe fluid Verified 05/07/20 14:15 retention latex AdvReac Unknown RED PLUMMER Verified 05/07/20 14:15 ON SKIN Home Medications Home Medications Medication Instructions Recorded Confirmed Type aspirin 81 mg tablet,delayed 81 mg PO DAILY 04/03/19 05/07/20 History release travoprost 0.004 % eye drops 1 drops OPR QPM 04/04/19 05/07/20 History albuterol sulfate 90 mcg/actuation 1 - 2 puffs INHALATION QAM PRN #1 07/15/19 05/07/20 History aerosol inhaler gm Azopt 1 drp OPHTHALMIC (EYE) BID 09/05/19 05/07/20 History docusate sodium [Stool Softener] 100 mg PO QPM PRN 09/05/19 05/07/20 History losartan 50 mg PO QAM 09/05/19 05/07/20 History ipratropium 0.5 mg-albuterol 3 mg 3 ml INH QID #360 ml 11/04/19 05/07/20 Rx (2.5 mg base)/3 mL nebulization soln tramadol 50 mg tablet 50 mg PO Q6H PRN #30 tab 11/13/19 05/07/20 Rx atenolol 25 mg tablet 25 mg PO HS #90 tab 11/19/19 05/07/20 Rx furosemide 80 mg tablet 80 mg PO QAM #180 tab 11/19/19 05/07/20 Rx trazodone 50 mg tablet 50 mg PO HS #90 tab 12/13/19 05/07/20 Rx linaclotide 290 mcg capsule 290 mcg PO DAILY #30 cap 03/18/20 05/07/20 Rx citalopram 10 mg tablet 10 mg PO DAILY #30 tab 04/06/20 05/07/20 Rx furosemide 40 mg tablet 40 mg PO QAM #90 tab 04/08/20 05/07/20 Rx simvastatin 10 mg tablet 10 mg PO HS #90 tab 05/05/20 05/07/20 Rx calcitriol 0.5 mcg PO 3XWK 05/07/20 05/07/20 History Patient History Medical History Balance problem uses walker Balanitis Basal cell carcinoma of skin of face HX OF Chronic diastolic CHF (congestive heart failure) Chronic kidney disease, stage IV (severe) under surveillance; baseline creatinine 2-2.3 range History of basal cell carcinoma History of glaucoma History of neoplasm of uncertain behavior of skin History of pneumonia Hx of cataract Hypercholesterolemia Hyponatremia HISTORY OF LVH (left ventricular hypertrophy) 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 Kip Toney- #1 anterior cervical discectomy with bilateral foraminotomies C3 and C4. #2 anterior cervical arthrodesis C3-C4. #3 placement of Spira 8 mm cage filled with DBM at C3-4 and #4 application of andrade plate and screws across C3-4 Status post repair of nerve History of decompression median nerve at carpal tunnel Family History Mother Coronary heart disease Diabetes Myocardial infarction Father Squamous cell carcinoma of skin Denies family history of Ovarian cancer Prostate cancer Breast cancer Colorectal cancer Social History Smoking Status: Unknown if ever smoked Age Started Using Tobacco: 22; Age Quit Using Tobacco: 82; packs per day: 1; Hx Alcohol Use: No Hx Substance Use: No Preferred Language: Peruvian Communication Ability: Effective Visual Impairment: No Limitations Clipper Machine Required: No Beliefs That Will Affect Care: None marital status: Current Living Situation: Spouse current occupational status: retired Other Information That Helps Us Care for You: No Feels Safe at Home: Yes Safety Concerns: Feels Safe At This Time caffeine: Yes Dental Care, Regularly: Yes Physical Activity Frequency: Does not Exercise Seatbelt Use: always Sunscreen Use: Yes Review of Systems Constitutional: + fatigue, + weakness, + anorexia and + weight loss; no fever and no chills Eyes: no problem reported Ear, Nose, Mouth, Throat: + dry mouth, + sore throat and + hoarseness Respiratory: + cough; no dyspnea, no pain on inspiration and no wheezing Cardiovascular: + lightheadedness; no chest pain, no orthopnea, no palpitations and no edema Gastrointestinal: + early satiety and + dysphagia; no constipation and no diarrhea/loose stools Genitourinary: no dysuria and no hematuria Musculoskeletal: + radicular pain, + joint pain and + stiffness Integumentary: no problem reported Neurologic: no problem reported Psychiatric: no problem reported Endocrine: no problem reported Physical Exam Constitutional: well developed, + ill appearing and + frail appearing Eyes: no scleral abnormality and no corneal abnormality ENMT: Mouth: + dry oral mucous membranes; no oral mucosal abnormality Neck: normal visual inspection and trachea midline Respiratory: normal respiratory effort Auscultation: lungs clear to auscultation bilaterally Cardiovascular: Rate/Rhythm: regular rate Heart Sounds: normal S1, normal S2 and + murmur Extremities: no edema Gastrointestinal (Abdomen): Inspection/Auscultation: + abdomen distended Percussion/Palpation: + abdomen tender and abdomen soft Musculoskeletal: Extremities: no cyanosis and no clubbing Skin: normal turgor; no lesions Neurologic: Motor/Sensory: no tremor and no asterixis Psychiatric: Orientation: alert and oriented x 3 Genitourinary: Smith draining concentrated urine Results & Data ([facility]) Vital Signs (Past 12 Hours) Vital Signs Temp Pulse Pulse Resp BP Pulse Ox 05/09/20 11:37 36.5 C 94 H 16 91/53 L 94 05/09/20 08:23 36.5 C 92 H 24 91/41 L 95 05/09/20 03:48 36.4 C L 87 20 106/71 92 Laboratory Results Laboratory Results - last 24 hr 05/08/20 05/08/20 05/08/20 15:57 15:57 17:40 WBC RBC Hgb Hct MCV MCH MCHC RDW Std Deviation RDW Coeff of Cathy Plt Count MPV ABG pH ABG pCO2 ABG pO2 ABG HCO3 ABG O2 Saturation ABG Base Excess Yovany Test Barometric Pressure Oxygen Given Sodium Potassium Chloride Carbon Dioxide Anion Gap BUN Creatinine Est Cr Clr Drug Dosing Est GFR ( Amer) Est GFR (Non-Af Amer) BUN/Creatinine Ratio Glucose POC Glucose 65 L* Calcium Magnesium Total Bilirubin Direct Bilirubin AST ALT Alkaline Phosphatase Total Protein Albumin Globulin Albumin/Globulin Ratio COVID-19 Eval [facility] SARS-CoV-2, RNA, NAAT NEGATIVE 05/08/20 05/09/20 05/09/20 19:47 07:16 07:16 WBC 5.86 RBC 3.93 L Hgb 13.8 L Hct 40.6 L MCV 103.3 H MCH 35.1 H MCHC 34.0 RDW Std Deviation 53.1 H RDW Coeff of Cathy 14.0 Plt Count 166 MPV 11.5 H ABG pH ABG pCO2 ABG pO2 ABG HCO3 ABG O2 Saturation ABG Base Excess Yovany Test Barometric Pressure Oxygen Given Sodium 136 Potassium 4.8 D Chloride 101 Carbon Dioxide 17 L Anion Gap 18.0 H BUN 101 H Creatinine 3.75 H D Est Cr Clr Drug Dosing 12.6 Est GFR ( Amer) 15.8 Est GFR (Non-Af Amer) 13.6 BUN/Creatinine Ratio 26.8 H Glucose 93 POC Glucose 80 Calcium 8.8 Magnesium 2.5 H Total Bilirubin 0.9 Direct Bilirubin AST 43 H ALT 35 Alkaline Phosphatase 106 Total Protein 7.0 Albumin 3.1 L Globulin 3.9 Albumin/Globulin Ratio 0.8 L COVID-19 Eval Order SARS-CoV-2, RNA, NAAT 05/09/20 05/09/20 05/09/20 07:16 11:00 14:48 WBC RBC Hgb Hct MCV MCH MCHC RDW Std Deviation RDW Coeff of Cathy Plt Count MPV ABG pH 7.34 L ABG pCO2 24 L ABG pO2 95 ABG HCO3 13 L ABG O2 Saturation 97.4 H ABG Base Excess -11.0 L Yovany Test Pos Barometric Pressure 741.7 Oxygen Given 1L Sodium 135 L Potassium 4.7 Chloride 100 Carbon Dioxide 17 L Anion Gap 18.0 H BUN 101 H Creatinine 4.21 H D Est Cr Clr Drug Dosing 11.3 Est GFR ( Amer) 13.7 Est GFR (Non-Af Amer) 11.9 BUN/Creatinine Ratio 24.0 H Glucose 134 H POC Glucose Calcium 8.9 Magnesium Total Bilirubin 0.9 Direct Bilirubin 0.4 H AST 45 H ALT 36 Alkaline Phosphatase 107 Total Protein 7.0 Albumin 3.1 L Globulin Albumin/Globulin Ratio COVID-19 Eval Order SARS-CoV-2, RNA, NAAT PG Care Time/CCT Total # of Minutes Spent Total Time Spent with Patient: Total time spent is greater than 50% in coordination of care (as documented) at patient's floor/unit and/or counseling patient: Coding Level of Care Code 09790 Inpt Consult Level 4 Diagnoses DEANGELO (acute kidney injury) N17.9 CKD (chronic kidney disease), stage IV N18.4 Hypotension I95.9 Chronic diastolic CHF (congestive heart failure) I50.32
[2020-05-09 15:22] LABS: Calcium 8.9 mg/dl (8.5-10.1); Creatinine Clr Calc Pharmacy 11.3 ml/min; Est GFR (African American) 13.7; Est GFR (Non-African American) 11.9; Potassium 4.7 mmol/L (3.5-5.1)
[2020-05-09] MEDS ORDERED: COUGH DROP (SUGAR FREE) LOZ 24 LOZ/1 BOX BUCCAL PRN (15:36)
[2020-05-09] MEDS: HYDROmorphone INJ 0.5 MG/0.5 ML SYR IV PRN (19:29)
[2020-05-09] MEDS: SIMVASTATIN 10 MG TAB PO SCH (21:00)
[2020-05-09] MEDS: TRAVOPROST Z 0.004% OPH SOLN 2.5 ML BTL OPR SCH (21:00)
[2020-05-09] MEDS: TRAZODONE HCL 50 MG TAB PO SCH (21:00)
[2020-05-09] MEDS ORDERED: LACTATED RINGER'S 500 ML IV ONE (22:25)
[2020-05-10] MEDS: PIPERACILLIN/TAZOBACTAM 3.375 GM in DEXTROSE 5% 100 ML IV SCH ×2 (00:29→12:28)
[2020-05-10] MEDS: LACTATED RINGER'S 1,000 ML IV SCH (05:29)
[2020-05-10] MEDS: HYDROmorphone INJ 0.5 MG/0.5 ML SYR IV PRN ×3 (05:35→21:06)
[2020-05-10 07:09] LABS: Hematocrit (blood only) 36.8 % (42-52); Hemoglobin 12.6 g/dL (14.0-18.0); Mean Corpuscular Hemoglobin 34.8 pg (25-34); Mean Corpuscular Hgb Conc 34.2 g/dL (32-36); Mean Corpuscular Volume 101.7 fL (80-100); Mean Platelet Volume 11.4 fL (7.4-10.4); Platelet Count 153 K/uL (130-400); RDW Coefficient of Variation 14.1 % (11.5-14.5); RDW Standard Deviation 52.7 fL (36.4-46.3); Red Blood Count 3.62 M/uL (4.7-6.1); White Blood Count 8.34 K/uL (4.8-10.8)
[2020-05-10 08:08] LABS: Albumin Level 2.6 gm/dl (3.4-5.0); BUN Creatinine Ratio 23.4 (10-20); Calcium 8.7 mg/dl (8.5-10.1); Creatinine Clr Calc Pharmacy 10.8 ml/min; Est GFR (African American) 12.6; Est GFR (Non-African American) 10.9; Phosphorus 7.2 mg/dl (2.5-4.9); Potassium 4.4 mmol/L (3.5-5.1)
[2020-05-10] MEDS: BRINZOLAMIDE (AZOPT) OPS 10 ML BTL OP SCH ×2 (08:37→19:28)
[2020-05-10] MEDS: CITALOPRAM 20 MG TAB PO SCH (08:38)
--- NOTE | 2020-05-10 10:37 | Nephrology Progress Note ---
Date of Service May 10, 2020 Assessment & Plan (1) DEANGELO (acute kidney injury): Oliguric. ATN in the setting of hypotension and NSAID use. Baseline kidney dysfunction advanced. No emergent need for dialysis. I did discuss potential future indications with Brien. He is receptive if needed. Volume status is acceptable. IVF stopped. Avoid significantly positive fluid balance. CT abdomen and pelvis reviewed. No obstruction. Smith draining yellow urine. Losartan and furosemide have been held. Medications are dosed appropriately for kidney dysfunction. Document strict I/O's. Monitor metabolic profile daily. (2) CKD (chronic kidney disease), stage IV: Baseline creatinine 2.0-2.4 mg/dL. Complications include sPTH managed with calcitriol. (3) Hypotension: Antihypertensives including losartan and atenolol held. BP remains low despite fluid challenge. TTE reviewed. Unfortunately evidence of right heart failure increasing on exam. TTE reviewed demonstrating TR and evidence of pulmonary hypertension. (4) Chronic diastolic CHF (congestive heart failure): Diuretics held. Will discuss with cardiology tomorrow AM. Admission and Anticipated Discharge Date Admission Date: May 07, 2020 Subjective No acute events overnight. Brien is feeling weak and tired today. Some lower back pain radiating into his left leg persists. Denies abdominal pain. No fevers or chills. Breathing comfortably. Tolerating oral fluids. Smith intact. Review of Systems Review of Systems: All systems reviewed & are unremarkable except as noted in HPI & below Physical Exam Constitutional: well developed and + frail appearing Eyes: no scleral abnormality and no corneal abnormality ENMT: Mouth: + dry oral mucous membranes; no oral mucosal abnormality Neck: normal visual inspection and trachea midline Respiratory: normal respiratory effort Auscultation: + rales (scattered bilateral bases) Cardiovascular: Rate/Rhythm: regular rate Heart Sounds: normal S1, normal S2 and + murmur Extremities: no edema Gastrointestinal (Abdomen): Percussion/Palpation: + abdomen tender and abdomen soft Musculoskeletal: Extremities: no cyanosis and no clubbing Skin: normal turgor; no lesions Neurologic: Motor/Sensory: no tremor and no asterixis Psychiatric: Orientation: alert and oriented x 3 Genitourinary: Smith draining small amount of yellow urine Results & Data ([facility]) Vital Signs (Past 12 Hours) Vital Signs Temp Pulse Resp BP Pulse Ox 05/10/20 08:00 36.2 C L 84 18 80/48 L 95 05/10/20 03:30 36.4 C L 82 18 84/40 L 97 05/09/20 23:26 36.3 C L 74 12 84/45 L 95 Laboratory Results Laboratory Results - last 24 hr 05/08/20 05/09/20 05/09/20 17:40 11:00 14:48 WBC RBC Hgb Hct MCV MCH MCHC RDW Std Deviation RDW Coeff of Cathy Plt Count MPV ABG pH 7.34 L ABG pCO2 24 L ABG pO2 95 ABG HCO3 13 L ABG O2 Saturation 97.4 H ABG Base Excess -11.0 L Yovany Test Pos Barometric Pressure 741.7 Oxygen Given 1L Sodium 135 L Potassium 4.7 Chloride 100 Carbon Dioxide 17 L Anion Gap 18.0 H BUN 101 H Creatinine 4.21 H D Est Cr Clr Drug Dosing 11.3 Est GFR ( Amer) 13.7 Est GFR (Non-Af Amer) 11.9 BUN/Creatinine Ratio 24.0 H Glucose 134 H POC Glucose 65 L* Calcium 8.9 Phosphorus Albumin 05/10/20 05/10/20 07:01 07:01 WBC 8.34 RBC 3.62 L Hgb 12.6 L Hct 36.8 L MCV 101.7 H MCH 34.8 H MCHC 34.2 RDW Std Deviation 52.7 H RDW Coeff of Cathy 14.1 Plt Count 153 MPV 11.4 H ABG pH ABG pCO2 ABG pO2 ABG HCO3 ABG O2 Saturation ABG Base Excess Yovany Test Barometric Pressure Oxygen Given Sodium 134 L Potassium 4.4 Chloride 101 Carbon Dioxide 18 L Anion Gap 16.0 H BUN 105 H Creatinine 4.51 H* D Est Cr Clr Drug Dosing 10.8 Est GFR ( Amer) 12.6 Est GFR (Non-Af Amer) 10.9 BUN/Creatinine Ratio 23.4 H Glucose 117 H POC Glucose Calcium 8.7 Phosphorus 7.2 H Albumin 2.6 L PG Care Time/CCT Total # of Minutes Spent Total Time Spent with Patient: Total time spent is greater than 50% in coordination of care (as documented) at patient's floor/unit and/or counseling patient: Coding Level of Care Code 28358 Subseq Hosp Care Lvl 3 Diagnoses DEANGELO (acute kidney injury) N17.9 CKD (chronic kidney disease), stage IV N18.4 Hypotension I95.9 Chronic diastolic CHF (congestive heart failure) I50.32
[2020-05-10 14:37] LABS: Appearance Urine Turbid (Clear); Bacteria Urine Automated Negative (Negative); Bilirubin Urine Negative (Negative); Blood Urine 3+ (Negative); Color Urine Dark Yellow; Epithelial Cell Urine Auto 20-30 /lpf (0-5); Glucose Urine UA Negative (Negative); Ketones Urine Trace (Negative); Leukocyte Esterase Urine 1+ (Negative); Nitrite Urine Negative (Negative); Protein Urine 1+ (Negative); RBC Urine Automated >30 /hpf (0-4); Specific Gravity Urine 1.023 (1.000-1.030); Urobilinogen Urine Negative (Negative)
[2020-05-10] MEDS ORDERED: STAT IV Infusion **Titration per Protocol STA (19:12)
[2020-05-10] MEDS ORDERED: NOREPINEPHRINE BIT INJ 4 MG in DEXTROSE 5% 250 ML IV SCH (19:15)
[2020-05-10] MEDS: TRAVOPROST Z 0.004% OPH SOLN 2.5 ML BTL OPR SCH (19:29)
[2020-05-10] MEDS: NOREPINEPHRINE BIT INJ 8 MG in DEXTROSE 5% 500 ML IV SCH (20:14)
--- NOTE | 2020-05-10 20:52 | Critical Care Consultation ---
Date of Consultation May 10, 2020 Assessment & Plan (1) Admitted to intensive care unit: Reason Critically Ill: 89-year-old male with unspecified profound hypotension in the setting of acute on chronic renal failure he was progressing to an anuric state requiring vasopressor support at attempts to provide renal perfusion in hopes of increasing urine output and decreasing likelihood of progressing to need for renal replacement therapy. NEURO - * CAM ICU: NEGATIVE * Chronic Pain: Dilaudid PRN * Depression/Anxiety: Continue home Rx as needed. CARDIAC/VASCULAR - * Profound Hypotension: * Likely multifactorial in the setting of acute on chronic renal failure with known history of TR and MR. * Despite appropriate fluid challenge, patient remains with worsening hypotension. * Will place central line for dual purpose of pressor administration to hopefully help forward flow, as well as monitor CVP. * On review of Echo (05/08), patient with EF of 65-70%. Uncertain of utility of pure inotropic agent at this time. Will start with Levophed and aim for MAPs in the 60s. * Will repeat laboratory panel for any other aberrancies which may be contributing to hypotension. * Question if combination of MR/TR with addition of ??new A-fib may be hindering flow as well. Regardless, patient appears to be rate controlled and will be unable to be successfully cardioverted until institution of anticoagulation which is currently on hold s/p ERCP w/ intervention. * Will add troponin for ?? new myocardial injury which may result in worsening hypotension. Would certainly need to trend any positive results in the ARF/CKD IV pt. * Consider repeat Echo as patient w/ worsening hypotension despite treatments. Trace pericardial effusion noted on prior echo, however patient w/o any other suggestive s/s of progressive tamponade. * A-Fib w/ RVR: * New Dx upon admission. * Presume valvular issues (i.e. MR/TR) might certainly be contributing. * Electrolytes remain appropriate. * Defer to cardiology regarding further management. * ECHO (05/08): EF 65-70%, Flattened septum w/ c/o increased RV pressure/volume overload, No wall motion abnormalities, LVH, Moderate MR, Moderate-Severe TR, RV pressures 40-50mmHg, Trace pericardial effusion. * EKG: A-fib w/ RVR @102bpm. T-wave inversions V1-4, ST depressions laterally. No ST elevations noted. QTc 508ms. * Monitor on telemetry. RESPIRATORY - * Pulmonary HTN, LETHA: * Supplemental O2 PRN. * Continue w/ nocturnal CPAP settings. * Monitor closely for s/s worsening pulmonary edema in the setting of progressive oliguric ARF state in the patient w/ known h/o CHF. GI/NUTRITION - * Choledocholithiasis w/ Biliary Obstruction: * s/p ERCP w/ Pancreatic septotomy and biliary sphincterotomy with pancreatic and biliary stenting. * Currently on prophylactic antibiotics. * Hold on anticoagulation for 5 days status post intervention per GI recommendations. * Continue to trend liver functions. * Prophylaxis: Protonix RENAL/LYTES - * Acute renal failure on chronic CKD IV: * Progressively worsening to anuric state. * Has essentially failed fluid trial and is progressing with worsening volume overload. * Will hold on further fluid administration. * Will add vasopressor support to hopefully improve forward flow and renal perfusion with hopes to increase urinary output. 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 Thankfully, patient with appropriate electrolytes at this time. * Appreciate ongoing nephrology recommendations. - * Smith in place - Strict I&Os. ENDO - * No history of diabetes or thyroid disease. * BSGs per unit protocol. ISS --> gtt per unit policy. HEME - * Stable H&H. ID - * Prophylactic antibiotics status post ERCP with intervention. * Continue with Zosyn per GI recs. LINES/IV ACCESS - * PIVs x2 * RIGHT IJ * RIGHT radial arterial line * Smith catheter DVT PROPHYLAXIS - * Hold on anticoagulation status post recent ERCP with intervention. * SCDs I have personally spent 65 minutes of critical care time in the direct management of this patient. This is a life/limb threatening event. This includes time spent evaluating patient, direct bedside care, chart review, placing orders, interpretation of diagnostic studies, discussion with consultants, patient, and family members, as well as other required patient management activities. This time is exclusive of all separately billable procedures, and teaching time and separate from and in addition to any other critical care service time. Thank you for allowing us to participate in the care of this patient. Please refer to my attending physician's documentation for any further recommendations. (2) Hypotension: (3) CKD (chronic kidney disease), stage IV: (4) Acute kidney failure: (5) Atrial fibrillation: (6) Common bile duct filling defect, non-specific: (7) Choledocholithiasis: (8) Cervical spinal stenosis: (9) Depression with anxiety: (10) Chronic diastolic CHF (congestive heart failure): (11) Restrictive lung disease: (12) Pulmonary hypertension: (13) Obstructive sleep apnea: (14) Lumbar stenosis with neurogenic claudication: History of Present Illness Attending Physician: Ethan Harris History of Present Illness Patient is an 89-year-old male with a significant past medical history of depression with anxiety, pulmonary hypertension, obstructive sleep apnea, lumbar stenosis with neurogenic claudication, hypertension, cervical spinal stenosis, chronic CHF, restrictive lung disease, and CKD 4. Initially, the patient was seen in the emergency department on 05/07 with complaints of flank pain with concerns for possible nephrolithiasis. On evaluation, the patient was found to have a distended gallbladder with concerns for choledocholithiasis. Patient received prophylactic antibiotics in the form of Zosyn. He underwent echocardiogram on 05/08 pre-ERCP which demonstrated an ejection fraction of 6065% with normal LV function despite a small left ventricular cavity. Patient noted to have flattening of the septum consistent with possible volume overload. There were no wall abnormalities noted. Patient was found to be in A. fib with RVR which appear to be rate controlled. It is uncertain as to the duration of t his finding. Patient received ongoing fluid resuscitation secondary to his hypovolemic state. Patient was evaluated by gastroenterology and subsequently underwent ERCP with pancreatic septotomy, biliary sphincterotomy, and placement of pancreatic and biliary stents on 05/08. Patient has been persistently hypotensive throughout his stay in the hospital. Of note, emergency department documentation notes that the patient has had ongoing issues with hypotension since February of this year. Unfortunately, despite appropriate fluid resuscitation, the patient remained with persistent hypotension and low MAPs. Of note, the patient has become increasingly oliguric. Thankfully, despite worsening renal function, the patient does not have significant electrolyte abnormalities concerning for need for emergent renal replacement therapy. Throughout the day, the patient was noted to be increasingly hypotensive with systolic blood pressures in the 60s. Patient remains with normal mentation despite this, although he admits to feeling poorly in general. Upon arrival in the ICU, the patient is awake, alert, and oriented. He complains of ongoing chronic pain to the LEFT lower extremity secondary to spinal stenosis. He denies any headaches, dizziness, lightheadedness, chest pain, palpitations, shortness of breath, nausea, vomiting, or abdominal pain. Allergies Allergy/AdvReac Type Severity Reaction Status Date / Time alfuzosin [From Uroxatral] Allergy PENILE Verified 05/07/20 19:28 SWELLING gabapentin [From Neurontin] AdvReac Severe fluid Verified 05/07/20 14:15 retention latex AdvReac Unknown RED PLUMMER Verified 05/07/20 14:15 ON SKIN Home Medications Home Medications Medication Instructions Recorded Confirmed Type aspirin 81 mg tablet,delayed 81 mg PO DAILY 04/03/19 05/07/20 History release travoprost 0.004 % eye drops 1 drops OPR QPM 04/04/19 05/07/20 History albuterol sulfate 90 mcg/actuation 1 - 2 puffs INHALATION QAM PRN #1 07/15/19 05/07/20 History aerosol inhaler gm Azopt 1 drp OPHTHALMIC (EYE) BID 09/05/19 05/07/20 History docusate sodium [Stool Softener] 100 mg PO QPM PRN 09/05/19 05/07/20 History losartan 50 mg PO QAM 09/05/19 05/07/20 History ipratropium 0.5 mg-albuterol 3 mg 3 ml INH QID #360 ml 11/04/19 05/07/20 Rx (2.5 mg base)/3 mL nebulization soln tramadol 50 mg tablet 50 mg PO Q6H PRN #30 tab 11/13/19 05/07/20 Rx atenolol 25 mg tablet 25 mg PO HS #90 tab 11/19/19 05/07/20 Rx furosemide 80 mg tablet 80 mg PO QAM #180 tab 11/19/19 05/07/20 Rx trazodone 50 mg tablet 50 mg PO HS #90 tab 12/13/19 05/07/20 Rx linaclotide 290 mcg capsule 290 mcg PO DAILY #30 cap 03/18/20 05/07/20 Rx citalopram 10 mg tablet 10 mg PO DAILY #30 tab 04/06/20 05/07/20 Rx furosemide 40 mg tablet 40 mg PO QAM #90 tab 04/08/20 05/07/20 Rx simvastatin 10 mg tablet 10 mg PO HS #90 tab 05/05/20 05/07/20 Rx calcitriol 0.5 mcg PO 3XWK 05/07/20 05/07/20 History Patient History Medical History Balance problem uses walker Balanitis Basal cell carcinoma of skin of face HX OF Chronic diastolic CHF (congestive heart failure) Chronic kidney disease, stage IV (severe) under surveillance; baseline creatinine 2-2.3 range History of basal cell carcinoma History of glaucoma History of neoplasm of uncertain behavior of skin History of pneumonia Hx of cataract Hypercholesterolemia Hyponatremia HISTORY OF LVH (left ventricular hypertrophy) 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 Kip Toney- #1 anterior cervical discectomy with bilateral foraminotomies C3 and C4. #2 anterior cervical arthrodesis C3-C4. #3 placement of Spira 8 mm cage filled with DBM at C3-4 and #4 application of andrade plate and screws across C3-4 Status post repair of nerve History of decompression median nerve at carpal tunnel Family History Mother Coronary heart disease Diabetes Myocardial infarction Father Squamous cell carcinoma of skin Denies family history of Ovarian cancer Prostate cancer Breast cancer Colorectal cancer Social History Smoking Status: Unknown if ever smoked Age Started Using Tobacco: 22; Age Quit Using Tobacco: 82; packs per day: 1; Hx Alcohol Use: No Hx Substance Use: No Preferred Language: [place] Communication Ability: Effective Visual Impairment: No Limitations Chip Unloader Required: No Beliefs That Will Affect Care: None marital status: Current Living Situation: Spouse current occupational status: retired Other Information That Helps Us Care for You: No Feels Safe at Home: Yes Safety Concerns: Feels Safe At This Time caffeine: Yes Dental Care, Regularly: Yes Physical Activity Frequency: Does not Exercise Seatbelt Use: always Sunscreen Use: Yes Review of Systems Review of Systems: A complete 10 point review of systems was reviewed with the patient with pertinent positives and negatives as per history of present illness. All else were negative. Physical Exam Physical Exam: VITAL SIGNS - Vital signs and nursing notes were reviewed. GENERAL - 89-year-old male appearing his stated age who is in no acute distress. Communicates well with provider and answers questions appropriately. SKIN - Without rashes. HEAD - NC/AT. EYES - PERRL with EOMI bilaterally. Sclera anicteric. EARS - No deformities of external structures noted on gross examination bilaterally. NOSE - Midline and without cyanosis. No epistaxis or purulent drainage noted. MOUTH/OROPHARYNX - Without perioral cyanosis. Buccal mucosa pink and moist and without leukoplakia. NECK - Neck with limited ROM secondary to chronic arthritis. Distended neck veins appreciated. Supple to palpation. No lymphadenopathy noted. No nuchal rigidity. LUNGS - Chest wall symmetric without accessory muscle use, intercostals retractions, or central cyanosis. Normal vesicular breath sounds CTA B/L. No wheezes, rales, or rhonchi appreciated. CARDIAC - RRR with S1/S2. No murmur, rubs, or gallops appreciated. ABDOMEN - Abdominal contour flat without pulsations or visible masses. BS normoactive all four quadrants. No tenderness, palpable masses, hepatosplenomegaly, or ascites noted. EXTREMITIES - No clubbing or peripheral cyanosis. No pretibial edema present. +1/5 radial pulses palpated throughout. +4/5 strength noted in UE/LE bilaterally. NEUROLOGIC - Cranial nerves II through XII grossly intact. Sensory intact to light touch throughout. PSYCH - A&Ox3 and cooperates fully with examiner. Pt is very pleasant and interacts well with examiner. Results & Data Results & Data ([facility]) Vital Signs (Past 12 Hours) Vital Signs Temp Pulse Pulse Resp BP BP Pulse Ox 05/10/20 20:13 86 18 87/53 L 94 05/10/20 20:03 97 H 12 75/52 L 93 05/10/20 19:54 96 H 19 87/51 L 90 05/10/20 19:53 93 H 18 77/55 L 93 05/10/20 19:43 98 H 20 72/56 L 90 05/10/20 19:32 36.3 C L 96 H 19 86/51 L 92 05/10/20 19:26 100 H 17 76/47 L 93 05/10/20 19:13 93 H 12 56/32 L 91 05/10/20 19:12 95 H 21 61/40 L 88 L 05/10/20 16:00 36.2 C L 98 H 16 77/44 L 94 05/10/20 12:00 36.3 C L 94 H 16 97/52 L 94 Coding Level of Care Code Critical Care 1st 30-74 mins Diagnoses Admitted to intensive care unit Z78.9 Hypotension I95.9 Hypotension type: unspecified hypotension type CKD (chronic kidney disease), stage IV N18.4 Acute kidney failure N17.9 Acute renal failure type: unspecified Atrial fibrillation I48.91 Atrial fibrillation type: unspecified Common bile duct filling defect, non-specific R93.2 Choledocholithiasis K80.50 Cervical spinal stenosis M48.02 Depression with anxiety F41.8 Chronic diastolic CHF (congestive heart failure) I50.32 Restrictive lung disease J98.4 Pulmonary hypertension I27.20 Obstructive sleep apnea G47.33 Lumbar stenosis with neurogenic claudication M48.062 Time Spent (min) 65 (1) Hypotension Hypotension type: unspecified hypotension type Qualified Code(s): I95.9 - Hypotension, unspecified (2) Acute kidney failure Acute renal failure type: unspecified Qualified Code(s): N17.9 - Acute kidney failure, unspecified (3) Atrial fibrillation Atrial fibrillation type: unspecified Qualified Code(s): I48.91 - Unspecified atrial fibrillation
--- NOTE | 2020-05-10 20:53 | Procedure Note ---
Procedure Note Date of Service Procedure: Internal Jugular Central Line Placement Attending: Dr. Chavez APC: Javier Rosado PA-C Indication: Central Drug Administration, Poor Venous Access, Multiple Lab Draws Necessary, etc. Anesthesia: Lidocaine 1% Consent was signed and placed on the chart prior to procedure. Indication, risks, and benefits were explained at length. A time-out was completed verifying correct patient, procedure, site, positioning, and implants(s) or special equipment if applicable. Patients RIGHT Neck was cleansed and draped in the typical sterile fashion using Chloraprep. The Internal Jugular Vein and Carotid Artery were identified using ultrasound. The superficial tissue was anesthetized using 3.0 mL of 1% lidocaine without epinephrine under direct visualization with the ultrasound. After adequate anesthetization was achieved, the Internal Jugular vein was cannulated under direct ultrasound guidance using an introducer needle on a syringe. Good venous blood return was maintained prior to removal of syringe from introducer needle. Using Seldinger Technique, a guide wire was advanced through the introducer needle without resistance. The introducer needle was removed and ultrasound images were obtained of the guide wire within the Internal Jugular Vein and saved to the patients medical record. The dilator was advanced to the vessel without resistance. The dilator was exchanged for the triple lumen catheter which was advanced into the vessel without resistance. The guide wire was removed intact from the catheter without issue. Claves were placed on each catheter tip with confirmation of good blood flow from each lumen. Each port was easily flushed with sterile saline. The catheter was placed at 16 cm and sutured in place. BioPatch was applied to the catheter and a sterile Tegaderm dressing was applied over the catheter with careful attention to sterility. Patient tolerated procedure well. No immediate complications were met. Post procedure x-ray was completed, placement was appropriate and no pneumothorax was noted. Images obtained are saved for permanent record Procedural Ultrasound Guidance: Procedure Date: 05/10/2020 Indication: Pressors, poor peripheral access, frequent lab draws Attending: Dr. Chavez APC: Javier Rosado PA-C Artery AND Vein visualized: YES Compressible Vein: YES Guidewire or Short Catheter seen in vein prior to dilation: YES Line confirmed in Vein with ultrasound: YES Images obtained are saved for permanent record.May 10, 2020 Coding CPT Codes Tubes, Drains, and Vasc Access - Tubes, Drains, and Vasc Access: [id number] Place catheter in vein superior or inferior vena cava ([id number]) Tubes, Drains, and Vasc Access - Tubes, Drains, and Vasc Access: [id number] Ultrasound Guidance For Vascular ([id number]) [facility] [place] Procedure Codes (Charges) Tubes, Drains, and Vasc Access Procedure 1: Tubes, Drains, and Vasc Access: [id number] Place catheter in vein superior or inferior vena cava Procedure 2: Tubes, Drains, and Vasc Access: [id number] Ultrasound Guidance For Vascular
--- NOTE | 2020-05-10 20:53 | Procedure Note ---
Procedure Note Date of Service May 10, 2020 Procedure: Arterial Line Placement Attending: Dr. Chavez APC: Javier Rosado PA-C Indication: Monitoring on Pressors Anesthesia: Lidocaine 1% Consent was signed and placed on the chart prior to procedure. Indication, risks, and benefits were explained at length. A time-out was completed verifying correct patient, procedure, site, positioning, and implant(s) or special equipment if applicable. Allens test was performed to ensure adequate perfusion. Patients RIGHT wrist was prepped and draped in the usual sterile fashion. Ultrasound guidance was used to aid needle placement. A 20g Arrow arterial line was introduced into the RIGHT Radial artery. Catheter was threaded, and the needle was removed with appropriate blood return. Good waveform was observed. The patient tolerated the procedure well. Confirmation of placement with ultrasound. Blood Loss: Minimal Complications: None Procedural Ultrasound Guidance: Procedure Date: 05/10/2020 Indication: Pressures w/ need for close BP monitoring Attending: Dr. Chavez APC: Javier Rosado PA-C Artery Identified: YES Line confirmed in Artery with ultrasound: YES Complications: NONE Patient tolerated procedure: WELL Coding CPT Codes Tubes, Drains, and Vasc Access - Tubes, Drains, and Vasc Access: [id number] Place Catheter In Artery ([id number]) [facility] [place] Procedure Codes (Charges) Tubes, Drains, and Vasc Access Procedure 3: Tubes, Drains, and Vasc Access: [id number] Place Catheter In Artery
[2020-05-10 21:26] LABS: Hematocrit (blood only) 41.4 % (42-52); Hemoglobin 14.1 g/dL (14.0-18.0); Mean Corpuscular Hemoglobin 34.5 pg (25-34); Mean Corpuscular Hgb Conc 34.1 g/dL (32-36); Mean Corpuscular Volume 101.2 fL (80-100); Mean Platelet Volume 11.9 fL (7.4-10.4); Platelet Count 207 K/uL (130-400); RDW Coefficient of Variation 14.2 % (11.5-14.5); RDW Standard Deviation 52.9 fL (36.4-46.3); Red Blood Count 4.09 M/uL (4.7-6.1); White Blood Count 12.61 K/uL (4.8-10.8)
[2020-05-10 21:34] LABS: Allen Test Pos (Pos); Base Excess ABG -9.6 mEq/L (-9-1.8); HCO3 ABG 15 mmol/L (19-24); PCO2 ABG 28 mmHg (35-46); PO2 ABG 79 mmHg (80-95); pH ABG 7.33 (7.35-7.45)
[2020-05-10 22:02] LABS: ALC (manual) 1.11 K/uL (1.2-3.4); ANC (manual) 10.29 K/uL (1.4-6.5); Echinocytes 1+; Lymphocytes # (manual) 1.11 K/uL (1.2-3.4); Lymphocytes % (manual) 8.8 %; Monocytes # (manual) 1.21 K/uL (0.11-0.59); Monocytes % (manual) 9.6 %; Neutrophils # (manual) 10.29 K/uL (1.4-6.5); Neutrophils % (manual) 81.6 %; Ovalocytes 1+
[2020-05-10 22:03] LABS: BUN Creatinine Ratio 22.4 (10-20); Calcium 8.4 mg/dl (8.5-10.1); Creatinine Clr Calc Pharmacy 10.5 ml/min; Est GFR (African American) 11.2; Est GFR (Non-African American) 9.7; Magnesium 2.4 mg/dl (1.8-2.4); Phosphorus 6.7 mg/dl (2.5-4.9); Potassium 4.3 mmol/L (3.5-5.1); Troponin I 0.421 ng/ml (0-0.045)
[2020-05-10] MEDS ORDERED: ICU PROTOCOL FOR HYPERGLYCEMIA PRN (22:06)
--- NOTE | 2020-05-10 22:49 | Hospitalist Progress Note ---
Date of Service May 10, 2020 Assessment & Plan (1) DEANGELO (acute kidney injury): Not making urine Positive 3 liters in past 24 hours, stopped IVF.however, BP is dropping, will transfer to ICU, obtained consent for central line. d/w concrete pump operator helper, patient will be transferred to ICU due to hypotension. (2) Choledocholithiasis: MRCP shows 11mm CBD filling defect. - Plan for ERCP today with GI. - Continue Zosyn - Follow LFTs (3) Acute kidney failure: Patient is in acute renal failure, concern over possibility of ATN. will consult nephro, patient not maiing much urine will start IVF. will closely monitor patient and will repeat BMP in afternoon. (4) Hypotension: Blood pressure was low (90/50s) on admission, and even lower overnight. - Admission team felt it was hypovolemia and medications. - Today, his BP is again quite low (as low as 80/50). Despite low BP, he has no signs/symptoms of end-organ damage. Mentation is good, UOP is good, lactate normal. - Seen by cardiology with thought he was hypovolemic. - Will give more IV fluids and monitor volume status. (5) Chronic renal disease, stage III: Baseline Cr ~2.3 - 3.0, eGFR 20. - At baseline presently, though on the higher end. - Giving IV fluids for his hypotension. - Monitor Cr (6) Chronic diastolic CHF (congestive heart failure): Echo on 05/08 showed EF 65 - 70%. Follows with Dr. Lemons in the clinic. - Hold Lasix - Hold losartan - Hold ASA for possible surgery (7) Obstructive sleep apnea: CPAP HS (8) Depression with anxiety: - Continue citalopram and trazodone (9) DVT prophylaxis: SCDs - Low DVT risk per admission calculator & in case he needs surgery Admission and Anticipated Discharge Date Admission Date: May 07, 2020 Subjective Patient reports being open to getting a central line and going to ICU. He is unsure if he wants to be on dialysis. His family is at bedside Review of Systems Review of Systems: All systems reviewed & are unremarkable except as noted in HPI & below Physical Exam Physical Exam: Constitutional: WD/WN, vitals as above Eyes: EOM intact bilaterally; no conjunctival abnormality ENMT: external ear and nose normal, oropharynx normal Neck: trachea midline, no thyromegaly normal visual inspection Respiratory: normal respiratory effort, lungs clear to auscultation no respiratory distress Cardiovascular: RRR, no murmur, no edema Gastrointestinal (Abdomen): Inspection/Auscultation: abdomen normal to inspection; abdomen not distended Musculoskeletal: no cyanosis or clubbing, extremities motor strength 5/5 Skin: no rashes, warm and dry Neurologic: moves all extremities and awake Psychiatric: Orientation: alert, oriented to person and cooperative Results & Data Results & Data ([facility]) Vital Signs (Past 12 Hours) Vital Signs Temp Pulse Pulse Resp BP BP Pulse Ox 05/10/20 20:13 86 18 87/53 L 94 05/10/20 20:03 97 H 12 75/52 L 93 05/10/20 19:54 96 H 19 87/51 L 90 05/10/20 19:53 93 H 18 77/55 L 93 05/10/20 19:43 98 H 20 72/56 L 90 05/10/20 19:32 36.3 C L 96 H 19 86/51 L 92 05/10/20 19:26 100 H 17 76/47 L 93 05/10/20 19:13 93 H 12 56/32 L 91 05/10/20 19:12 95 H 21 61/40 L 88 L 05/10/20 16:00 36.2 C L 98 H 16 77/44 L 94 05/10/20 12:00 36.3 C L 94 H 16 97/52 L 94 PG Care Time/CCT Total # of Minutes Spent Total Time Spent with Patient: Total time spent is greater than 50% in coordination of care (as documented) at patient's floor/unit and/or counseling patient: Critical Care Time: Yes Total Critical Care Time: 35 I have personally spent 35 minutes of critical care time in the direct management of this patient. This is a life/limb threatening event. This includes time spent evaluating patient, direct bedside care, chart review, placing orders, interpretation of diagnostic studies, discussion with consultants, patient, and family members, as well as other required patient management activities. This time is exclusive of all separately billable procedures, and teaching time and separate from and in addition to any other critical care service time. Coding Level of Care Code 64040 Subseq Hosp Care Lvl 3 Diagnoses DEANGELO (acute kidney injury) N17.9 Choledocholithiasis K80.50 Acute kidney failure N17.9 Hypotension I95.9 Chronic renal disease, stage III N18.3 Chronic diastolic CHF (congestive heart failure) I50.32 Obstructive sleep apnea G47.33 Depression with anxiety F41.8 DVT prophylaxis Z29.9 Additional Codes Critical Care Time - Critical Care Time: Yes ([id number]) Time Spent (min) 65
[2020-05-11] MEDS: PIPERACILLIN/TAZOBACTAM 3.375 GM in DEXTROSE 5% 100 ML IV SCH ×2 (01:00→11:48)
[2020-05-11] MEDS: SIMVASTATIN 10 MG TAB PO SCH ×2 (03:39→20:21)
[2020-05-11] MEDS: TRAZODONE HCL 50 MG TAB PO SCH ×2 (03:39→20:21)
[2020-05-11] MEDS: NOREPINEPHRINE BIT INJ 8 MG in DEXTROSE 5% 500 ML IV SCH ×2 (04:14→15:57)
[2020-05-11 04:20] LABS: Basophils # (auto) 0.01 K/uL (0-0.2); Basophils % (auto) 0.1 %; Eosinophils # (auto) 0.08 K/uL (0-0.5); Eosinophils % (auto) 0.7 %; Hematocrit (blood only) 39.4 % (42-52); Hemoglobin 13.7 g/dL (14.0-18.0); Immature Granulocytes # (auto) 0.03 K/uL (0.00-0.02); Immature Granulocytes % (auto) 0.2 %; Lymphocytes # (auto) 1.56 K/uL (1.2-3.4); Mean Corpuscular Hemoglobin 34.9 pg (25-34); Mean Corpuscular Hgb Conc 34.8 g/dL (32-36); Mean Corpuscular Volume 100.3 fL (80-100); Mean Platelet Volume 11.6 fL (7.4-10.4); Monocytes # (auto) 1.08 K/uL (0.11-0.59); Neutrophils # (auto) 9.28 K/uL (1.4-6.5); Platelet Count 192 K/uL (130-400); RDW Standard Deviation 51.5 fL (36.4-46.3); Red Blood Count 3.93 M/uL (4.7-6.1); White Blood Count 12.04 K/uL (4.8-10.8)
[2020-05-11 04:25] LABS: Allen Test POS (Pos); Base Excess ABG -8.8 mEq/L (-9-1.8); HCO3 ABG 17 mmol/L (19-24); PCO2 ABG 36 mmHg (35-46); PO2 ABG 88 mmHg (80-95); pH ABG 7.29 (7.35-7.45)
[2020-05-11 05:08] LABS: Albumin Level 2.9 gm/dl (3.4-5.0); Bilirubin Direct 0.5 mg/dl (0-0.2); Bilirubin,Total 0.8 mg/dl (0.2-1); Calcium 8.1 mg/dl (8.5-10.1); Creatinine Clr Calc Pharmacy 10.5 ml/min; Est GFR (African American) 11.3; Est GFR (Non-African American) 9.7; Magnesium 2.6 mg/dl (1.8-2.4); Potassium 4.1 mmol/L (3.5-5.1); Total Protein 6.7 gm/dl (6.4-8.2); Troponin I 0.568 ng/ml (0-0.045)
--- NOTE | 2020-05-11 06:37 | XRay Report ---
XR chest 1V portable HISTORY: 89 years-old Male Central Line Placement status post placement of a right IJ central venous catheter COMPARISON: Chest radiograph 05/07/2020 TECHNIQUE: Supine portable AP view of the chest FINDINGS: Status post placement of a right IJ central venous catheter, distal tip terminating in the expected l ocation of the proximal SVC. There is no postprocedural pneumothorax identified. Cardiac silhouette i s enlarged. Unchanged right hemidiaphragmatic elevation. Small left pleural effusion. Minimal left shelby ng base atelectasis. No overt pulmonary edema. Degenerative changes of the shoulders and spine. Parti ally imaged lumbar spine fusion hardware. Partially imaged biliary stent. IMPRESSION: 1. Status post placement of a right IJ central venous catheter, distal tip terminating in the expecte d location of the proximal SVC. No postprocedural pneumothorax. 2. Cardiomegaly without overt pulmonary edema. 3. Small left pleural effusion. ACT 112: Negative or not required by law. The above report was generated using voice recognition software. It may contain grammatical, syntax o r spelling errors. Electronically signed by: Malik Herron M.D. 05/11/2020 6:36 AM
--- NOTE | 2020-05-11 08:05 | XRay Report ---
XR chest 1V portable CLINICAL HISTORY: History of congestive failure. Follow-up study. COMPARISON STUDY: 05/10/2020 FINDINGS: The heart is borderline enlarged. There is a right internal jugular central venous catheter unchanged in position. A right apical opacity, likely represents summation with the right first cost ochondral junction. There is no lobar consolidation. There is blunting of the left lateral costophren ic angle suggesting a trace effusion. There is mild interstitial prominence without evidence of overt failure. Postsurgical changes are present within the lumbar spine[. There are left axilla calcificat ions, likely representing calcified lymph nodes IMPRESSION: 1. No evidence of acute parenchymal consolidation 2. Suspected trace left pleural effusion ACT 112: Negative or not required by law. Electronically signed by: Julio C Childs M.D. 05/11/2020 8:03 AM
[2020-05-11] MEDS ORDERED: SODIUM CHLORIDE 0.9% 1000ML 500 ML IV ONE (08:41)
--- NOTE | 2020-05-11 08:43 | Critical Care Progress Note ---
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 Patient underwent an ERCP on 05/08/2020 and ever since that time he has been having uptrending creatinine and worsening urine output. Notably he has been quite hypotensive since that procedure. Patient notes that he was also hypotensive at home periodically. I suspect that his hypotension is likely related to his severe tricuspid valve regurgitation and moderate mitral valve regurgitation. He has WHO group 2 pulmonary hypertension obviously decreased forward flow. He responded well to norepinephrine. I am going to trial him on 5 mg 3 times daily of midodrine. His urine output is improved on pressor support. His BUN is trending upwards. His mentation is reasonable at this time. Phosphorus is trending up as well and we will likely need to start phosphate binder. Nephrology is following along with us. He may need dialysis in the near future if his BUN continues to rise. His creatinine is improving however. I do not think that he would be a good candidate for dialysis given his hypotension and his cardiomyopathy. I am going to give him a 500 cc bolus of normal saline over 2 hours to see if this improves his cardiac output as he does appear a bit dry. Palliative care consultation may be warranted. Continue Zosyn given his recent GI procedure and his ongoing shock. Patient also has atrial fibrillation. Holding on anticoagulation given his recent ERCP. Holding on rate control strategies given his hypotension. Will consider initiation of amiodarone if his heart rate goes above 110. VT prophylaxis with SCDs. GI prophylaxis with Protonix daily. Remain in the ICU today. CRITICAL CARE TIME - I have personally spent 36 minutes of critical care time in the direct management of this patient. This is a life/limb threatening event. This includes time spent evaluating patient, direct bedside care, chart review, placing orders, interpretation of diagnostic studies, discussion with consultants, patient, and family members, as well as other required patient management activities. This time is exclusive of all separately billable procedures, and teaching time and separate from and in addition to any other critical care service time. (2) Acute kidney failure: (3) DEANGELO (acute kidney injury): (4) Chronic diastolic CHF (congestive heart failure): (5) Pulmonary hypertension: (6) Depression with anxiety: Admission and Anticipated Discharge Date Admission Date: May 07, 2020 Subjective Patient is lying in bed. He is complaining of some mild shortness of breath. He denies any chest pain. He does have some abdominal pain. He notes that he feels terrible" and said that "why do not you just let me ". Per discussion with the bedside nursing, he has been agitated since he has been in the ICU. Review of Systems Review of Systems: All systems reviewed & are unremarkable except as noted in HPI & below Physical Exam Physical Exam: VITAL SIGNS - Vital signs and nursing notes were reviewed. GENERAL - 89-year-old male appearing his stated age who is in no acute distress. SKIN - Without rashes. HEAD - NC/AT. EYES - PERRL with EOMI bilaterally. Sclera anicteric. EARS - No deformities of external structures noted on gross examination bilaterally. NOSE - Midline and without cyanosis. No epistaxis or purulent drainage noted. MOUTH/OROPHARYNX - Without perioral cyanosis. Buccal mucosa pink and moist and without leukoplakia. NECK - Neck with limited ROM secondary to chronic arthritis. Distended neck veins appreciated. Supple to palpation. No lymphadenopathy noted. No nuchal rigidity. LUNGS - Chest wall symmetric without accessory muscle use, intercostals retractions, or central cyanosis. Normal vesicular breath sounds CTA B/L. No wheezes, rales, or rhonchi appreciated. CARDIAC - RRR with S1/S2. No murmur, rubs, or gallops appreciated. ABDOMEN -mild tenderness to palpation noted. Normal active bowel sounds. EXTREMITIES - No clubbing or peripheral cyanosis. No pretibial edema present. +1/5 radial pulses palpated throughout. +4/5 strength noted in UE/LE bilaterally. NEUROLOGIC - Cranial nerves II through XII grossly intact. Sensory intact to light touch throughout. PSYCH - A&Ox3 and cooperates fully with examiner. Pt is very pleasant and interacts well with examiner. Results & Data Results & Data ([facility]) Vital Signs (Past 12 Hours) Vital Signs Temp Pulse Resp BP Pulse Ox 05/11/20 05:30 114 H 20 123/72 95 05/11/20 05:00 86 11 L 116/72 93 05/11/20 04:30 104 H 23 123/76 93 05/11/20 04:00 110 H 20 125/74 95 05/11/20 03:30 100 H 16 128/76 96 05/11/20 03:00 106 H 16 120/74 96 05/11/20 02:31 105 H 18 122/94 95 05/11/20 02:00 98 H 18 124/81 97 05/11/20 01:30 105 H 16 112/79 91 05/11/20 01:00 97 H 14 122/65 95 05/11/20 00:30 100 H 14 108/71 92 05/11/20 00:01 107 H 12 100/69 94 05/11/20 00:00 97.5 F L 05/10/20 23:30 103 H 16 108/74 93 05/10/20 23:08 98 H 18 96 05/10/20 23:00 98 H 15 99/74 L 96 05/10/20 22:30 102 H 16 101/60 93 05/10/20 22:00 96 H 14 94/66 L 92 05/10/20 21:30 103 H 18 98/67 L 95 05/10/20 21:01 101 H 21 103/80 94 05/10/20 20:34 102 H 20 95/59 L 94 Reviewed vital signs, labs and imaging Coding Level of Care Code Critical Care 1st 30-74 mins Diagnoses Admitted to intensive care unit Z78.9 Acute kidney failure N17.9 Acute renal failure type: unspecified DEANGELO (acute kidney injury) N17.9 Chronic diastolic CHF (congestive heart failure) I50.32 Pulmonary hypertension I27.20 Depression with anxiety F41.8 Time Spent (min) 36 (1) Acute kidney failure Acute renal failure type: unspecified Qualified Code(s): N17.9 - Acute kidney failure, unspecified
[2020-05-11] MEDS: MIDODRINE HCL 2.5 MG TAB PO SCH ×3 (09:14→17:34)
--- NOTE | 2020-05-11 09:22 | Anesthesiology Progress Note ---
Date of Service May 11, 2020 Anesthesia Post Procedure Vital Signs Vital Signs: Temp Pulse Pulse Pulse Resp BP BP 05/11/20 08:00 114 H 123/72 05/11/20 05:30 114 H 20 123/72 05/11/20 05:00 86 11 L 116/72 05/11/20 04:30 104 H 23 123/76 05/11/20 04:00 110 H 20 125/74 05/11/20 03:30 100 H 16 128/76 05/11/20 03:00 106 H 16 120/74 05/11/20 02:31 105 H 18 122/94 05/11/20 02:00 98 H 18 124/81 05/11/20 01:30 105 H 16 112/79 05/11/20 01:00 97 H 14 122/65 05/11/20 00:30 100 H 14 108/71 05/11/20 00:01 107 H 12 100/69 05/11/20 00:00 36.4 C L 05/10/20 23:30 103 H 16 108/74 05/10/20 23:08 98 H 18 05/10/20 23:00 98 H 15 99/74 L 05/10/20 22:30 102 H 16 101/60 05/10/20 22:00 96 H 14 94/66 L 05/10/20 21:30 103 H 18 98/67 L 05/10/20 21:01 101 H 21 103/80 05/10/20 20:34 102 H 20 95/59 L 05/10/20 20:13 86 18 87/53 L 05/10/20 20:03 97 H 12 75/52 L 05/10/20 19:54 96 H 19 87/51 L 05/10/20 19:53 93 H 18 77/55 L 05/10/20 19:43 98 H 20 72/56 L 05/10/20 19:32 36.3 C L 96 H 19 86/51 L 05/10/20 19:26 100 H 17 76/47 L 05/10/20 19:13 93 H 12 56/32 L 05/10/20 19:12 95 H 21 61/40 L 05/10/20 18:00 94 H 16 69/48 L 05/10/20 16:00 36.2 C L 98 H 16 77/44 L 05/10/20 12:00 36.3 C L 94 H 16 97/52 L Pulse Ox 05/11/20 08:00 05/11/20 05:30 95 05/11/20 05:00 93 05/11/20 04:30 93 05/11/20 04:00 95 05/11/20 03:30 96 05/11/20 03:00 96 05/11/20 02:31 95 05/11/20 02:00 97 05/11/20 01:30 91 05/11/20 01:00 95 05/11/20 00:30 92 05/11/20 00:01 94 05/11/20 00:00 05/10/20 23:30 93 05/10/20 23:08 96 05/10/20 23:00 96 05/10/20 22:30 93 05/10/20 22:00 92 05/10/20 21:30 95 05/10/20 21:01 94 05/10/20 20:34 94 05/10/20 20:13 94 05/10/20 20:03 93 05/10/20 19:54 90 05/10/20 19:53 93 05/10/20 19:43 90 05/10/20 19:32 92 05/10/20 19:26 93 05/10/20 19:13 91 05/10/20 19:12 88 L 05/10/20 18:00 05/10/20 16:00 94 05/10/20 12:00 94 Notes Mental Status: alert / awake / arousable and participated in evaluation Patient Amnestic to Procedure: Yes Nausea / Vomiting: adequately controlled Pain: adequately controlled Airway Patency, RR, SpO2: stable & adequate BP & HR: stable & adequate Hydration State: stable & adequate Anesthetic Complications: no major complications apparent
[2020-05-11] MEDS: BRINZOLAMIDE (AZOPT) OPS 10 ML BTL OP SCH ×2 (09:27→20:20)
[2020-05-11] MEDS: CALCITRIOL 0.25 MCG CAPSULE PO SCH (09:28)
[2020-05-11] MEDS: CITALOPRAM 20 MG TAB PO SCH (09:28)
--- NOTE | 2020-05-11 09:30 | Electrocardiogram Report ---
Test Reason : Blood Pressure : / mmHG Vent. Rate : 102 BPM Atrial Rate : 110 BPM P-R Int : 000 ms QRS Dur : 138 ms QT Int : 390 ms P-R-T Axes : 000 165 -49 degrees QTc Int : 508 ms Atrial fibrillation with rapid ventricular response Right bundle branch block Anterolateral infarct (cited on or before 07-MAY-2020) Abnormal ECG When compared with ECG of 07-MAY-2020 21:20, Questionable change in initial forces of Anterior leads T wave inversion more evident in Anterior leads QT has shortened Confirmed by Johnny Rahman ([id number]) on 05/11/2020 9:29:50 AM Referred By: Tyler Wolf Confirmed By:Johnny Rahman
--- NOTE | 2020-05-11 09:40 | Nephrology Progress Note ---
Date of Service May 11, 2020 Assessment & Plan (1) DEANGELO (acute kidney injury): Oliguric with some improvement in UOP overnight with vasopressor support. ATN ischemic +NSAID. No emergent need for dialysis but high likelihood of requiring [facility] in the near future. I have discussed potential future indications with Brien. He is receptive to discussing but also struggling with the burden of his treatments. CT abdomen and pelvis reviewed. No obstruction. Smith draining yellow urine. Losartan and furosemide have been held. Medications are dosed appropriately for kidney dysfunction. Document strict I/O's. Monitor metabolic profile daily. (2) CKD (chronic kidney disease), stage IV: Baseline creatinine 2.0-2.4 mg/dL. Complications include sPTH managed with calcitriol. If HD no significant improvement in kidney function in next 24 hours and EVENT SPECIALIST is required, I would favor TDC placement. Low probability of renal recovery given baseline advanced CKD. (3) Hypotension: Evidence of right heart failure complicated by diastolic dysfunction and underlying atrial fibrillation. (4) Chronic diastolic CHF (congestive heart failure): Avoid significantly positive fluid balance. Admission and Anticipated Discharge Date Admission Date: May 07, 2020 Subjective Transfer to ICU overnight with persistent hypotension requiring vasopressor support. Brien is very uncomfortable this morning. He reports persistent back pain. He is agitated from lack of sleep and frustrated by multiple different interventions. He states that he just wants to be left alone but also relates that he wants to do everything he can to get better. He denies significant dyspnea. Appetite is poor. No fevers or chills. Brien is receptive about considering dialysis but remains undecided regarding whether it is something that he would want. He asked that I speak with his . Review of Systems Review of Systems: All systems reviewed & are unremarkable except as noted in HPI & below Constitutional: + body aches, + fatigue and + anorexia Musculoskeletal: + back pain, + joint pain and + stiffness Physical Exam Constitutional: well developed and + frail appearing Eyes: no scleral abnormality and no corneal abnormality ENMT: Mouth: + dry oral mucous membranes; no oral mucosal abnormality Neck: normal visual inspection and trachea midline Respiratory: normal respiratory effort Auscultation: + rales (scattered bilateral bases) Cardiovascular: Rate/Rhythm: + irregularly irregular Heart Sounds: normal S1, normal S2 and + murmur Vessels: + JVD Extremities: no edema Gastrointestinal (Abdomen): Inspection/Auscultation: + abdomen distended Percussion/Palpation: + abdomen tender and abdomen soft Musculoskeletal: Extremities: no cyanosis and no clubbing Skin: normal turgor; no lesions Neurologic: Motor/Sensory: no tremor and no asterixis Psychiatric: Orientation: alert and oriented x 3 Results & Data ([facility]) Vital Signs (Past 12 Hours) Vital Signs Temp Pulse Resp BP Pulse Ox 05/11/20 08:00 114 H 123/72 05/11/20 05:30 114 H 20 123/72 95 05/11/20 05:00 86 11 L 116/72 93 05/11/20 04:30 104 H 23 123/76 93 05/11/20 04:00 110 H 20 125/74 95 05/11/20 03:30 100 H 16 128/76 96 05/11/20 03:00 106 H 16 120/74 96 05/11/20 02:31 105 H 18 122/94 95 05/11/20 02:00 98 H 18 124/81 97 05/11/20 01:30 105 H 16 112/79 91 05/11/20 01:00 97 H 14 122/65 95 05/11/20 00:30 100 H 14 108/71 92 05/11/20 00:01 107 H 12 100/69 94 05/11/20 00:00 36.4 C L 05/10/20 23:30 103 H 16 108/74 93 05/10/20 23:08 98 H 18 96 05/10/20 23:00 98 H 15 99/74 L 96 05/10/20 22:30 102 H 16 101/60 93 05/10/20 22:00 96 H 14 94/66 L 92 Laboratory Results Laboratory Results - last 24 hr 05/10/20 05/10/20 05/10/20 14:20 19:05 21:16 WBC 12.61 H RBC 4.09 L Hgb 14.1 Hct 41.4 L MCV 101.2 H MCH 34.5 H MCHC 34.1 RDW Std Deviation 52.9 H RDW Coeff of Cathy 14.2 Plt Count 207 MPV 11.9 H Immature Gran % (Auto) Neut % (Auto) Lymph % (Auto) [place] % (Auto) Eos % (Auto) Baso % (Auto) Neut # (Auto) Lymph # (Auto) [place] # (Auto) Eos # (Auto) Baso # (Auto) Immature Gran # (Auto) Neutrophils % (Manual) 81.6 Lymphocytes % (Manual) 8.8 Monocytes % (Manual) 9.6 Neutrophils # (Manual) 10.29 H Total Absolute Neuts 10.29 H Lymphocytes # (Manual) 1.11 L Total Abs Lymphocytes 1.11 L Monocytes # (Manual) 1.21 H Ovalocytes 1+ Echinocytes 1+ ABG pH ABG pCO2 ABG pO2 ABG HCO3 ABG O2 Saturation ABG Base Excess Yovany Test Barometric Pressure Oxygen Given Sodium Potassium Chloride Carbon Dioxide Anion Gap BUN Creatinine Est Cr Clr Drug Dosing Est GFR ( Amer) Est GFR (Non-Af Amer) BUN/Creatinine Ratio Glucose POC Glucose (other) Lactate Calcium Phosphorus Magnesium Total Bilirubin Direct Bilirubin AST ALT Alkaline Phosphatase Troponin I Total Protein Albumin Procalcitonin Random Cortisol Urine Color Dark Yellow Urine Appearance Turbid A Urine pH 5.0 Ur Specific [place] 1.023 Urine Protein 1+ H Urine Glucose (UA) Negative Urine Ketones Trace H Urine Blood 3+ H Urine Nitrite Negative Urine Bilirubin Negative Urine Urobilinogen Negative Ur Leukocyte Esterase 1+ H Urine WBC (Auto) 5-10 H Urine RBC (Auto) >30 H U Hyaline Cast (Auto) 1-5 U Epithel Cells (Auto) 20-30 H Urine Bacteria (Auto) Negative Nasal Screen MRSA (PCR) Negative 05/10/20 05/10/20 05/10/20 21:16 21:16 21:16 WBC RBC Hgb Hct MCV MCH MCHC RDW Std Deviation RDW Coeff of Cathy Plt Count MPV Immature Gran % (Auto) Neut % (Auto) Lymph % (Auto) [place] % (Auto) Eos % (Auto) Baso % (Auto) Neut # (Auto) Lymph # (Auto) [place] # (Auto) Eos # (Auto) Baso # (Auto) Immature Gran # (Auto) Neutrophils % (Manual) Lymphocytes % (Manual) Monocytes % (Manual) Neutrophils # (Manual) Total Absolute Neuts Lymphocytes # (Manual) Total Abs Lymphocytes Monocytes # (Manual) Ovalocytes Echinocytes ABG pH ABG pCO2 ABG pO2 ABG HCO3 ABG O2 Saturation ABG Base Excess Yovany Test Barometric Pressure Oxygen Given Sodium 133 L Potassium 4.3 Chloride 99 Carbon Dioxide 14 L Anion Gap 19.0 H BUN 110 H Creatinine 4.97 H* D Est Cr Clr Drug Dosing 10.5 Est GFR ( Amer) 11.2 Est GFR (Non-Af Amer) 9.7 BUN/Creatinine Ratio 22.4 H Glucose 141 H POC Glucose (other) Lactate 1.8 Calcium 8.4 L Phosphorus 6.7 H Magnesium 2.4 Total Bilirubin Direct Bilirubin AST ALT Alkaline Phosphatase Troponin I 0.421 H* Total Protein Albumin Procalcitonin Random Cortisol 18.51 Urine Color Urine Appearance Urine pH Ur Specific [place] Urine Protein Urine Glucose (UA) Urine Ketones Urine Blood Urine Nitrite Urine Bilirubin Urine Urobilinogen Ur Leukocyte Esterase Urine WBC (Auto) Urine RBC (Auto) U Hyaline Cast (Auto) U Epithel Cells (Auto) Urine Bacteria (Auto) Nasal Screen MRSA (PCR) 05/10/20 05/10/20 05/10/20 21:16 21:16 21:29 WBC RBC Hgb Hct MCV MCH MCHC RDW Std Deviation RDW Coeff of Cathy Plt Count MPV Immature Gran % (Auto) Neut % (Auto) Lymph % (Auto) [place] % (Auto) Eos % (Auto) Baso % (Auto) Neut # (Auto) Lymph # (Auto) [place] # (Auto) Eos # (Auto) Baso # (Auto) Immature Gran # (Auto) Neutrophils % (Manual) Lymphocytes % (Manual) Monocytes % (Manual) Neutrophils # (Manual) Total Absolute Neuts Lymphocytes # (Manual) Total Abs Lymphocytes Monocytes # (Manual) Ovalocytes Echinocytes ABG pH 7.33 L ABG pCO2 28 L ABG pO2 79 L ABG HCO3 15 L ABG O2 Saturation 95.0 ABG Base Excess -9.6 L Yovany Test Pos Barometric Pressure 744.9 Oxygen Given 2 LITERS Sodium Potassium Chloride Carbon Dioxide Anion Gap BUN Creatinine Est Cr Clr Drug Dosing Est GFR ( Amer) Est GFR (Non-Af Amer) BUN/Creatinine Ratio Glucose POC Glucose (other) 137 H Lactate Calcium Phosphorus Magnesium Total Bilirubin Direct Bilirubin AST ALT Alkaline Phosphatase Troponin I Total Protein Albumin Procalcitonin 1.69 H Random Cortisol Urine Color Urine Appearance Urine pH Ur Specific [place] Urine Protein Urine Glucose (UA) Urine Ketones Urine Blood Urine Nitrite Urine Bilirubin Urine Urobilinogen Ur Leukocyte Esterase Urine WBC (Auto) Urine RBC (Auto) U Hyaline Cast (Auto) U Epithel Cells (Auto) Urine Bacteria (Auto) Nasal Screen MRSA (PCR) 05/11/20 05/11/20 05/11/20 04:11 04:11 04:11 WBC 12.04 H RBC 3.93 L Hgb 13.7 L Hct 39.4 L MCV 100.3 H MCH 34.9 H MCHC 34.8 RDW Std Deviation 51.5 H RDW Coeff of Cathy 14.0 Plt Count 192 MPV 11.6 H Immature Gran % (Auto) 0.2 Neut % (Auto) 77.0 Lymph % (Auto) 13.0 [place] % (Auto) 9.0 Eos % (Auto) 0.7 Baso % (Auto) 0.1 Neut # (Auto) 9.28 H Lymph # (Auto) 1.56 [place] # (Auto) 1.08 H Eos # (Auto) 0.08 Baso # (Auto) 0.01 Immature Gran # (Auto) 0.03 H Neutrophils % (Manual) Lymphocytes % (Manual) Monocytes % (Manual) Neutrophils # (Manual) Total Absolute Neuts Lymphocytes # (Manual) Total Abs Lymphocytes Monocytes # (Manual) Ovalocytes Echinocytes ABG pH 7.29 L ABG pCO2 36 ABG pO2 88 ABG HCO3 17 L ABG O2 Saturation 96.0 H ABG Base Excess -8.8 Yovany Test POS Barometric Pressure 745.5 Oxygen Given 3 L Sodium 132 L Potassium 4.1 Chloride 99 Carbon Dioxide 19 L Anion Gap 14.0 H BUN 115 H Creatinine 4.95 H* Est Cr Clr Drug Dosing 10.5 Est GFR ( Amer) 11.3 Est GFR (Non-Af Amer) 9.7 BUN/Creatinine Ratio 23.0 H Glucose 142 H POC Glucose (other) Lactate Calcium 8.1 L Phosphorus 7.0 H Magnesium 2.6 H Total Bilirubin 0.8 Direct Bilirubin 0.5 H AST 37 ALT 34 Alkaline Phosphatase 103 Troponin I 0.568 H* Total Protein 6.7 Albumin 2.9 L Procalcitonin Random Cortisol Urine Color Urine Appearance Urine pH Ur Specific [place] Urine Protein Urine Glucose (UA) Urine Ketones Urine Blood Urine Nitrite Urine Bilirubin Urine Urobilinogen Ur Leukocyte Esterase Urine WBC (Auto) Urine RBC (Auto) U Hyaline Cast (Auto) U Epithel Cells (Auto) Urine Bacteria (Auto) Nasal Screen MRSA (PCR) PG Care Time/CCT Total # of Minutes Spent Total Time Spent with Patient: Total time spent is greater than 50% in coordination of care (as documented) at patient's floor/unit and/or counseling patient: Coding Level of Care Code 75707 Subseq Hosp Care Lvl 3 Diagnoses DEANGELO (acute kidney injury) N17.9 CKD (chronic kidney disease), stage IV N18.4 Hypotension I95.9 Hypotension type: unspecified hypotension type Chronic diastolic CHF (congestive heart failure) I50.32 (1) Hypotension Hypotension type: unspecified hypotension type Qualified Code(s): I95.9 - Hypotension, unspecified
--- NOTE | 2020-05-11 10:27 | Gastroenterology Progress Note ---
Date of Service May 11, 2020 Assessment & Plan (1) Common bile duct filling defect, non-specific: Pt is a 89 y/o male who is s/p ERCP on 05/08 found to have dilated CBD, w intraductal polyp; biliary sphincterectomy, biliary & pancreatic stents placed. His cytology and bx from the polyp aren't resulted yet. His LFTs are normalized. He developed hypotension and DEANGELO, currently in ICU on pressors, midodrine support. On exam no abd pain, n/v, is having BMs and tolerating CL diet. - ICU team and nephro following - Avoid NSAIDs and anticoag x 5 days after ERCP - Antibx for cholangitis prophylaxis x5 days after ERCP - Advance diet as tolerated - No further GI plans currently; may consider tertiary center for possible spyglass procedure and intraductal RF ablation for the polyp upon his DC, pending eval of his health condition Attg add: I interviewed and examined pt, reviewed chart and labs. Pt without abd pain, nl LFT's. He remains hypotensive due to cardiac issues. Recs as above. Please reconsult if needed. Admission and Anticipated Discharge Date Admission Date: May 07, 2020 Subjective Pt reports feeling "bad" but no abd pain, n/v. On CL diet. Having BMs. In ICU on pressor support, minimal UOP Review of Systems Review of Systems: All systems reviewed & are unremarkable except as noted in HPI & below Physical Exam Constitutional: + ill appearing, well groomed, cooperative and comfortable Eyes: PERRL, conjunctivae normal, anicteric sclerae ENMT: external ear and nose normal, oropharynx normal Respiratory: normal respiratory effort; no respiratory distress and does not use accessory muscles Auscultation: + diminished lung sounds Cardiovascular: RRR, no murmur, no edema Gastrointestinal (Abdomen): normal bowel sounds, soft, nontender, no hepatosplenomegaly Skin: no rashes, warm and dry no jaundice Psychiatric: A+Ox3, euthymic affect Lymphatic: no lymphedema Results & Data ([facility]) Vital Signs (Past 12 Hours) Vital Signs Temp Pulse Resp BP Pulse Ox 05/11/20 08:00 114 H 123/72 05/11/20 05:30 114 H 20 123/72 95 05/11/20 05:00 86 11 L 116/72 93 05/11/20 04:30 104 H 23 123/76 93 05/11/20 04:00 110 H 20 125/74 95 05/11/20 03:30 100 H 16 128/76 96 05/11/20 03:00 106 H 16 120/74 96 05/11/20 02:31 105 H 18 122/94 95 05/11/20 02:00 98 H 18 124/81 97 05/11/20 01:30 105 H 16 112/79 91 05/11/20 01:00 97 H 14 122/65 95 05/11/20 00:30 100 H 14 108/71 92 05/11/20 00:01 107 H 12 100/69 94 05/11/20 00:00 36.4 C L 05/10/20 23:30 103 H 16 108/74 93 05/10/20 23:08 98 H 18 96 05/10/20 23:00 98 H 15 99/74 L 96 05/10/20 22:30 102 H 16 101/60 93
--- NOTE | 2020-05-11 11:39 | Palliative Care Consultation ---
Date of Consultation May 11, 2020 Assessment & Plan (1) Goals of care, counseling/discussion: This patient is an 89 year old male who presented to the [facility] on 05/07/20 with right flank pain. His recreation technician suggested that he present to the hospital. This patient hs significant PMH that includes: CHF (EF 50-55% in 06/2019), CKD Stage IV, LETHA with at home CPAP, and depression. On exam, it appeared that his flank pain was worsening and was affecting his ADL's. Additionally, he was found to have a 20# weight gain. The patient had a CTA that showed gallbladder sludge, which led to an ERCP that took place on 05/08 s/p biliary and pancreatic stent placement. Ultimately, this gentleman ended up in the ICU for management of hypotension. A central line was placed and now he is on inotropic support, currently Levophed, being titrated. His renal function continues to worsen, current BUN/Creatinine is 115/4.95. It was found that he was in Afib and now is in rapid Afib. Palliative Care was consulted to discuss goals of care. -I met with the patient in room 107. The patient was AAO x 3. -The patient was able to recall and provide details regarding his current and previous hospitalizations. Current WBC is 12.04. Current BUN/creatinine is 115/4.95 -We discussed goals of care and he stated that he would like to go home and does realize he is not 'doing well' -We did talk about his current medications, including inotropic support. He is comfortable continuing with this treatment, and is comfortable with adding additional pressors if indicated. -We did discuss his kidney function and stated that he is heading towards requiring dialysis for toxin removal. We discussed both sides of receiving vs not receiving dialysis and he stated that if he is a candidate for dialysis, he would like 'to at least try'. he does recognize that his blood pressure may not tolerate, especially with being on pressors. -I did explain that typically, bedside hemodialysis may not be tolerated while on pressures, unless he pursues CRRT at [facility] or [facility]. I am not confident that this would provide a different prognosis for this patient. -We did talk about dying and he said that he is comfortable with dying and feels at peace with his life. He talked about his and said that he wants to be home with her, but wants to hang on a little bit longer. -I think that while this conversation will sink in and digest, we will continue to provide support. I do forsee him making a transition away from aggressive measures after some time. -I did reach out to his , Nohemy, and leave a VM. I will follow up with her too. -Palliative will continue to follow. -PPS: 30% (2) CKD (chronic kidney disease), stage IV: (3) Atrial fibrillation: Atrial fibrillation type: unspecified Qualified Code(s): I48.91 - Unspecified atrial fibrillation (4) Hypotension: Hypotension type: unspecified hypotension type Qualified Code(s): I95.9 - Hypotension, unspecified (5) Common bile duct filling defect, non-specific: (6) History of CHF (congestive heart failure): Supervising Physician Co-Signing Physician Notes Chart reviewed, patient seen and examined. Patient's son at bedside PE: Patient fatigue, no acute distress HEENT: EOMI, mild SEMINOLE Respirations: Unlabored, diminished breath sounds at bases-poor inspiratory effort CV: Tachycardic, irregular, no edema Abdomen: Soft, nontender Neuro: Alert and oriented Agree with above note, assessment and plan as per ROZINA Burroughs-Will continue to follow and assist patient and family with medical decision making. History of Present Illness Reason for Consultation: Goals of care Requesting Physician: Dr. Wolf Attending Physician: Ethan Harris History of Present Illness This patient is an 89 year old male who presented to the [facility] on 05/07/20 with right flank pain. His recreation technician suggested that he present to the hospital. This patient hs significant PMH that includes: CHF (EF 50-55% in 06/2019), CKD Stage IV, LETHA with at home CPAP, and depression. On exam, it appeared that his flank pain was worsening and was affecting his ADL's. Additionally, he was found to have a 20# weight gain. The patient had a CTA that showed gallbladder sludge, which led to an ERCP that took place on 05/08 s/p biliary and pancreatic stent placement. Ultimately, this gentleman ended up in the ICU for management of hypotension. A central line was placed and now he is on inotropic support, currently Levophed, being titrated. His renal function continues to worsen, current BUN/Creatinine is 115/4.95. It was found that he was in Afib and now is in rapid Afib. Palliative Care was consulted to discuss goals of care. Please see A/P for further information. Thank you kindly for involving the palliative care team with this patient. Allergies Allergy/AdvReac Type Severity Reaction Status Date / Time alfuzosin [From Uroxatral] Allergy PENILE Verified 05/07/20 19:28 SWELLING gabapentin [From Neurontin] AdvReac Severe fluid Verified 05/07/20 14:15 retention latex AdvReac Unknown RED PLUMMER Verified 05/07/20 14:15 ON SKIN Home Medications Home Medications Medication Instructions Recorded Confirmed Type aspirin 81 mg tablet,delayed 81 mg PO DAILY 04/03/19 05/07/20 History release travoprost 0.004 % eye drops 1 drops OPR QPM 04/04/19 05/07/20 History albuterol sulfate 90 mcg/actuation 1 - 2 puffs INHALATION QAM PRN #1 07/15/19 05/07/20 History aerosol inhaler gm Azopt 1 drp OPHTHALMIC (EYE) BID 09/05/19 05/07/20 History docusate sodium [Stool Softener] 100 mg PO QPM PRN 09/05/19 05/07/20 History losartan 50 mg PO QAM 09/05/19 05/07/20 History ipratropium 0.5 mg-albuterol 3 mg 3 ml INH QID #360 ml 11/04/19 05/07/20 Rx (2.5 mg base)/3 mL nebulization soln tramadol 50 mg tablet 50 mg PO Q6H PRN #30 tab 11/13/19 05/07/20 Rx atenolol 25 mg tablet 25 mg PO HS #90 tab 11/19/19 05/07/20 Rx furosemide 80 mg tablet 80 mg PO QAM #180 tab 11/19/19 05/07/20 Rx trazodone 50 mg tablet 50 mg PO HS #90 tab 12/13/19 05/07/20 Rx linaclotide 290 mcg capsule 290 mcg PO DAILY #30 cap 03/18/20 05/07/20 Rx citalopram 10 mg tablet 10 mg PO DAILY #30 tab 04/06/20 05/07/20 Rx furosemide 40 mg tablet 40 mg PO QAM #90 tab 04/08/20 05/07/20 Rx simvastatin 10 mg tablet 10 mg PO HS #90 tab 05/05/20 05/07/20 Rx calcitriol 0.5 mcg PO 3XWK 05/07/20 05/07/20 History Patient History Medical History (Updated 05/11/20 @ 13:30 by ROZINA Burroughs) Balance problem uses walker Balanitis Basal cell carcinoma of skin of face HX OF Chronic diastolic CHF (congestive heart failure) Chronic kidney disease, stage IV (severe) under surveillance; baseline creatinine 2-2.3 range Goals of care, counseling/discussion History of basal cell carcinoma History of glaucoma History of neoplasm of uncertain behavior of skin History of pneumonia Hx of cataract Hypercholesterolemia Hyponatremia HISTORY OF LVH (left ventricular hypertrophy) 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 Kip Toney- #1 anterior cervical discectomy with bilateral foraminotomies C3 and C4. #2 anterior cervical arthrodesis C3-C4. #3 placement of Spira 8 mm cage filled with DBM at C3-4 and #4 application of andrade plate and screws across C3-4 Status post repair of nerve History of decompression median nerve at carpal tunnel Family History Mother Coronary heart disease Diabetes Myocardial infarction Father Squamous cell carcinoma of skin Denies family history of Ovarian cancer Prostate cancer Breast cancer Colorectal cancer Social History Smoking Status: Unknown if ever smoked Age Started Using Tobacco: 22; Age Quit Using Tobacco: 82; packs per day: 1; Hx Alcohol Use: No Hx Substance Use: No Preferred Language: Jamaican Communication Ability: Effective Visual Impairment: No Limitations Commercial Loan Specialist Required: No Beliefs That Will Affect Care: None marital status: Current Living Situation: Spouse current occupational status: retired Other Information That Helps Us Care for You: No Feels Safe at Home: Yes Safety Concerns: Feels Safe At This Time caffeine: Yes Dental Care, Regularly: Yes Physical Activity Frequency: Does not Exercise Seatbelt Use: always Sunscreen Use: Yes Assistive Devices: CPAP, Denture - Upper, Glasses and Hearing Aid - Right Review of Systems Review of Systems: All systems reviewed & are unremarkable except as noted in HPI & below Patient noted to report 'nerve' pain in his right heel General: Pt denies overall pain HEENT: Pt denies BRITO, dizziness CV: Pt denies chest pain, palpitations Resp: Pt denies SOB GI: Pt denies abdominal pain, N/V/D Gu: Pt denies dysuria Physical Exam Constitutional: well developed, cooperative and comfortable Neck: trachea midline, no thyromegaly Respiratory: normal respiratory effort; no respiratory distress Auscultation: + diminished lung sounds Cardiovascular: Rate/Rhythm: + tachycardic and + irregularly irregular Heart Sounds: normal S1 and normal S2 Extremities: normal capillary refill; no edema Gastrointestinal (Abdomen): normal bowel sounds, soft, nontender, no hepatosplenomegaly Skin: no rashes, warm and dry + pallor Psychiatric: A+Ox3, euthymic affect Results & Data ([facility]) Vital Signs (Past 12 Hours) Vital Signs Temp Pulse Resp BP Pulse Ox 05/11/20 08:00 114 H 123/72 05/11/20 05:30 114 H 20 123/72 95 05/11/20 05:00 86 11 L 116/72 93 05/11/20 04:30 104 H 23 123/76 93 05/11/20 04:00 110 H 20 125/74 95 05/11/20 03:30 100 H 16 128/76 96 05/11/20 03:00 106 H 16 120/74 96 05/11/20 02:31 105 H 18 122/94 95 05/11/20 02:00 98 H 18 124/81 97 05/11/20 01:30 105 H 16 112/79 91 05/11/20 01:00 97 H 14 122/65 95 05/11/20 00:30 100 H 14 108/71 92 05/11/20 00:01 107 H 12 100/69 94 05/11/20 00:00 36.4 C L PG Care Time/CCT Total # of Minutes Spent Total Time Spent with Patient: Total time spent is greater than 50% in coordination of care (as documented) at patient's floor/unit and/or counseling patient: 70 Coding Level of Care Code 07110 Inpt Consult Level 3 Diagnoses Goals of care, counseling/discussion Z71.89 CKD (chronic kidney disease), stage IV N18.4 Atrial fibrillation I48.91 Atrial fibrillation type: unspecified Hypotension I95.9 Hypotension type: unspecified hypotension type Common bile duct filling defect, non-specific R93.2 History of CHF (congestive heart failure) Z86.79 Time Spent (min) 70 Time Spent Midlevel Total time spent 70 minutes with > 50 % of that time spent assessing the patient, discussing goals of care with the patient and IDT
[2020-05-11] MEDS: CALCIUM ACETATE 667 MG CAP/TAB PO SCH ×2 (11:47→15:59)
[2020-05-11] MEDS: PANTOprazole 40 MG in SYRINGE 0 ML IV SCH (11:47)
[2020-05-11] MEDS: HYDROmorphone INJ 0.5 MG/0.5 ML SYR IV PRN ×3 (11:49→20:21)
[2020-05-11] MEDS: TRAVOPROST Z 0.004% OPH SOLN 2.5 ML BTL OPR SCH (20:20)
--- NOTE | 2020-05-11 23:29 | Hospitalist Progress Note ---
Date of Service May 11, 2020 Assessment & Plan (1) DEANGELO (acute kidney injury): Now making urine Now on vasopressor will remain in ICU obtained consent for central line. 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 - Plan for ERCP today with GI. - Continue Zosyn - Follow LFTs (3) Acute kidney failure: Patient is in acute renal failure, concern over possibility of ATN. now making urine. will continue to monitor (4) Hypotension: Blood pressure was low (90/50s) on admission, and even lower overnight. - Admission team felt it was hypovolemia and medications. - Today, his BP is again quite low (as low as 80/50). Despite low BP, he has no signs/symptoms of end-organ damage. Mentation is good, UOP is good, lactate normal. - Seen by cardiology with thought he was hypovolemic. - Will give more IV fluids and monitor volume status. (5) Chronic renal disease, stage III: Baseline Cr ~2.3 - 3.0, eGFR 20. - At baseline presently, though on the higher end. - Giving IV fluids for his hypotension. - Monitor Cr (6) Chronic diastolic CHF (congestive heart failure): Echo on 05/08 showed EF 65 - 70%. Follows with Dr. Lemons in the clinic. - Hold Lasix - Hold losartan - Hold ASA for possible surgery (7) Obstructive sleep apnea: CPAP HS (8) Depression with anxiety: - Continue citalopram and trazodone (9) DVT prophylaxis: SCDs - Low DVT risk per admission calculator & in case he needs surgery Admission and Anticipated Discharge Date Admission Date: May 07, 2020 Subjective 89 yo male is resting comfortably. Review of Systems Review of Systems: All systems reviewed & are unremarkable except as noted in HPI & below Physical Exam Physical Exam: Constitutional: WD/WN, vitals as above Eyes: EOM intact bilaterally; no conjunctival abnormality ENMT: external ear and nose normal, oropharynx normal Neck: trachea midline, no thyromegaly normal visual inspection Respiratory: normal respiratory effort, lungs clear to auscultation no respiratory distress Cardiovascular: RRR, no murmur, no edema Gastrointestinal (Abdomen): Inspection/Auscultation: abdomen normal to inspection; abdomen not distended Musculoskeletal: no cyanosis or clubbing, extremities motor strength 5/5 Skin: no rashes, warm and dry Neurologic: moves all extremities and awake Psychiatric: Orientation: alert, oriented to person and cooperative Results & Data Results & Data ([facility]) Vital Signs (Past 12 Hours) Vital Signs Temp Pulse Resp BP Pulse Ox 05/11/20 22:02 108 H 16 92 05/11/20 21:00 106 H 10 L 93 05/11/20 20:31 119 H 6 L 84/58 L 94 05/11/20 20:30 107 H 24 85 L 05/11/20 20:01 112 H 2 L 98/66 L 93 05/11/20 20:00 96 H 6 L 66/27 L 95 05/11/20 19:31 102 H 13 100/60 94 05/11/20 19:30 110 H 21 93 05/11/20 19:02 111 H 7 L 93 05/11/20 19:01 113 H 8 L 93/64 L 93 05/11/20 19:00 91 H 7 L 90/56 L 94 05/11/20 16:00 105 H 05/11/20 12:02 105 H 7 L 92 05/11/20 12:01 36.4 C 122 H 12 107/65 92 05/11/20 12:00 114 H 123/72 05/11/20 11:59 116 H 10 L 99/68 L 92 05/11/20 11:31 111 H 21 114/57 L 94 PG Care Time/CCT Total # of Minutes Spent Total Time Spent with Patient: Total time spent is greater than 50% in coordination of care (as documented) at patient's floor/unit and/or counseling patient: Coding Level of Care Code 56636 Subseq Hosp Care Lvl 2 Diagnoses DEANGELO (acute kidney injury) N17.9 Choledocholithiasis K80.50 Acute kidney failure N17.9 Acute renal failure type: unspecified Hypotension I95.9 Hypotension type: unspecified hypotension type Chronic renal disease, stage III N18.3 Chronic diastolic CHF (congestive heart failure) I50.32 Obstructive sleep apnea G47.33 Depression with anxiety F41.8 DVT prophylaxis Z29.9 Time Spent (min) 25 (1) Acute kidney failure Acute renal failure type: unspecified Qualified Code(s): N17.9 - Acute kidney failure, unspecified (2) Hypotension Hypotension type: unspecified hypotension type Qualified Code(s): I95.9 - Hypotension, unspecified
[2020-05-12] MEDS: HYDROmorphone INJ 0.5 MG/0.5 ML SYR IV PRN (00:08)
[2020-05-12] MEDS: PIPERACILLIN/TAZOBACTAM 3.375 GM in DEXTROSE 5% 100 ML IV SCH ×2 (00:08→11:31)
[2020-05-12] MEDS: NOREPINEPHRINE BIT INJ 8 MG in DEXTROSE 5% 500 ML IV SCH ×2 (03:19→10:59)
[2020-05-12] MEDS ORDERED: SODIUM CHLORIDE 0.9% 1000ML 500 ML IV ONE ×2 (03:54→04:04)
[2020-05-12 05:00] LABS: Basophils # (auto) 0.01 K/uL (0-0.2); Basophils % (auto) 0.1 %; Eosinophils # (auto) 0.16 K/uL (0-0.5); Eosinophils % (auto) 1.5 %; Hematocrit (blood only) 36.8 % (42-52); Immature Granulocytes # (auto) 0.03 K/uL (0.00-0.02); Immature Granulocytes % (auto) 0.3 %; Lymphocytes % (auto) 15.3 %; Mean Corpuscular Hemoglobin 35.4 pg (25-34); Mean Corpuscular Hgb Conc 35.3 g/dL (32-36); Mean Corpuscular Volume 100.3 fL (80-100); Mean Platelet Volume 11.3 fL (7.4-10.4); Monocytes # (auto) 0.77 K/uL (0.11-0.59); Monocytes % (auto) 7.4 %; Neutrophils # (auto) 7.89 K/uL (1.4-6.5); Neutrophils % (auto) 75.4 %; Platelet Count 174 K/uL (130-400); RDW Coefficient of Variation 14.1 % (11.5-14.5); RDW Standard Deviation 51.2 fL (36.4-46.3); Red Blood Count 3.67 M/uL (4.7-6.1); White Blood Count 10.46 K/uL (4.8-10.8)
[2020-05-12 05:46] LABS: BUN Creatinine Ratio 23.6 (10-20); Calcium 7.8 mg/dl (8.5-10.1); Est GFR (African American) 11.9; Est GFR (Non-African American) 10.3; Magnesium 2.2 mg/dl (1.8-2.4); Phosphorus 6.2 mg/dl (2.5-4.9); Potassium 3.5 mmol/L (3.5-5.1)
[2020-05-12] MEDS: ACETAMINOPHEN 325 MG TAB PO PRN ×2 (07:44→11:32)
[2020-05-12] MEDS: MIDODRINE HCL 2.5 MG TAB PO SCH ×2 (07:44→11:31)
[2020-05-12] MEDS: BRINZOLAMIDE (AZOPT) OPS 10 ML BTL OP SCH (08:18)
[2020-05-12] MEDS: CITALOPRAM 20 MG TAB PO SCH (08:18)
[2020-05-12] MEDS: CALCIUM ACETATE 667 MG CAP/TAB PO SCH ×2 (08:18→11:31)
[2020-05-12] MEDS ORDERED: TRAMADOL HCL 50 MG TABLET PO PRN (08:38)
--- NOTE | 2020-05-12 08:48 | Critical Care Progress Note ---
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 Patient underwent an ERCP on 05/08/2020 and ever since that time he has been having hypotension with decreased urine output. I suspect that his hypotension is likely related to his severe tricuspid valve regurgitation and moderate mitral valve regurgitation. He has WHO group 2 pulmonary hypertension obviously decreased forward flow. His invasive blood pressure monitoring and noninvasive blood pressure monitoring are very discordant. Given that he is mentating well and his creatinine is proving, we will go off of his noninvasive blood pressure and discontinue the arterial line. Continue 5 mg 3 times daily of midodrine. Creatinine and BUN are improving modestly. Appreciate nephrology's input. His mentation is reasonable at this time. I do not think that he would be a good candidate for dialysis given his hypotension and his cardiomyopathy. Palliative care is following the patient. At this time, the patient would like to continue with pressors as needed. Continue Zosyn given his recent GI procedure and his ongoing shock. Patient also has atrial fibrillation and his heart rate is starting to trend upwards. Will initiate beta-lion when heart rate goes over 110 persistently. We will have to be very careful with beta blockers given his hypotension. Holding on anticoagulation given his recent ERCP. He is having diffuse pain with particular discomfort in his left heel. I am going to start him on tramado every 4 hours as needed. VTE prophylaxis with SCDs. GI prophylaxis with Protonix daily. Remain in the ICU today. Patient discussed with bedside RN. CRITICAL CARE TIME - I have personally spent 34 minutes of critical care time in the direct management of this patient. This is a life/limb threatening event. This includes time spent evaluating patient, direct bedside care, chart review, placing orders, interpretation of diagnostic studies, discussion with consultants, patient, and family members, as well as other required patient management activities. This time is exclusive of all separately billable procedures, and teaching time and separate from and in addition to any other critical care service time. (2) Acute kidney failure: (3) DEANGELO (acute kidney injury): (4) Chronic diastolic CHF (congestive heart failure): (5) Pulmonary hypertension: (6) Depression with anxiety: Admission and Anticipated Discharge Date Admission Date: May 07, 2020 Subjective Patient seen and examined this morning. He notes that he feels terrible and he has pain all over his body in particular a burning sensation in his left heel that is chronic. He is currently on 0.17 of levophed. He is in A. fib RVR with heart rates from 105-115. Review of Systems Review of Systems: All systems reviewed & are unremarkable except as noted in HPI & below Physical Exam Constitutional: well developed and + frail appearing Eyes: no scleral abnormality and no corneal abnormality ENMT: Mouth: + dry oral mucous membranes; no oral mucosal abnormality Neck: normal visual inspection and trachea midline Respiratory: normal respiratory effort Auscultation: + rales (scattered bilateral bases) Cardiovascular: Rate/Rhythm: + tachycardic and + irregularly irregular He art Sounds: normal S1, normal S2 and + murmur Extremities: no edema Gastrointestinal (Abdomen): Percussion/Palpation: + abdomen tender and abdomen soft Musculoskeletal: no cyanosis or clubbing, extremities motor strength 5/5 Extremities: no cyanosis and no clubbing Skin: normal turgor; no lesions Neurologic: PERRL, EOMI, accommodation nl, no face palsy, no dysarthria Psychiatric: Orientation: alert and oriented x 3 Mood: + irritable mood Results & Data Results & Data ([facility]) Vital Signs (Past 12 Hours) Vital Signs Temp Pulse Resp BP Pulse Ox 05/12/20 06:01 97.9 F 109 H 12 111/69 95 05/12/20 06:00 111 H 9 L 96 05/12/20 05:31 110 H 11 L 111/67 95 05/12/20 05:01 95 H 7 L 103/66 93 05/12/20 05:00 108 H 8 L 94 05/12/20 04:31 107 H 14 111/63 92 05/12/20 04:01 106 H 8 L 104/69 94 05/12/20 04:00 117 H 10 L 119/39 L 94 05/12/20 03:31 100 H 12 101/72 94 05/12/20 03:30 108 H 10 L 95 05/12/20 03:01 104 H 5 L 95/58 L 94 05/12/20 03:00 111 H 8 L 95 05/12/20 02:31 100 H 10 L 93/59 L 93 05/12/20 02:30 105 H 10 L 93 05/12/20 02:23 108 H 14 94 05/12/20 02:01 106 H 9 L 101/61 94 05/12/20 02:00 101 H 16 94 05/12/20 01:31 111 H 7 L 94/61 L 93 05/12/20 01:30 89 3 L 94 05/12/20 01:01 98 H 9 L 93/67 L 94 05/12/20 01:00 110 H 13 94 05/12/20 00:31 108 H 8 L 88/57 L 93 05/12/20 00:30 108 H 11 L 94 05/12/20 00:01 91 H 6 L 94/59 L 92 05/12/20 00:00 106 H 10 L 89/34 L 93 05/11/20 23:31 110 H 7 L 91/57 L 92 05/11/20 23:30 105 H 4 L 92 05/11/20 23:01 110 H 5 L 88/55 L 92 05/11/20 23:00 101 H 4 L 93 05/11/20 22:31 103 H 10 L 95/63 L 90 05/11/20 22:30 99 H 9 L 93 05/11/20 22:02 108 H 16 92 05/11/20 22:01 114 H 5 L 98/67 L 93 05/11/20 22:00 109 H 18 89 L 05/11/20 21:00 106 H 10 L 93 reviewed vital signs, labs and imaging Coding Level of Care Code Critical Care 1st 30-74 mins Diagnoses Admitted to intensive care unit Z78.9 Acute kidney failure N17.9 Acute renal failure type: unspecified DEANGELO (acute kidney injury) N17.9 Chronic diastolic CHF (congestive heart failure) I50.32 Pulmonary hypertension I27.20 Depression with anxiety F41.8 Time Spent (min) 34 (1) Acute kidney failure Acute renal failure type: unspecified Qualified Code(s): N17.9 - Acute kidney failure, unspecified
--- NOTE | 2020-05-12 10:47 | Nephrology Progress Note ---
Date of Service May 12, 2020 Assessment & Plan (1) DEANGELO (acute kidney injury): Improvement in urine output. Creatinine stable. Electrolytes acceptable. No emergent indication for dialysis. Given recent hemodynamic instability IHD would be difficult. Brien remains on 0.15 mcg/kg/min Levophed. BP has improved and kidney function seems to have responded to hemodynamic support. Clinical presentation consistent with ischemic ATN. I have discussed potential future indications with Brien and potential complications (risks/benefits) of hemodialysis. He has expressed understanding. Palliative care consultation is appreciated, notably in this regard. CT abdomen and pelvis reviewed. No obstruction. Smith intact. Medications are dosed appropriately for kidney dysfunction. Document strict I/O's. Monitor metabolic profile daily. (2) CKD (chronic kidney disease), stage IV: Baseline creatinine 2.0-2.4 mg/dL. Complications include sPTH managed with calcitriol. If HD no significant improvement in kidney function and APPLE TURNER is required, I would favor TDC placement. (3) Hypotension: Evidence of right heart failure complicated by diastolic dysfunction and underlying atrial fibrillation as well as notable valvular heart disease. (4) Chronic diastolic CHF (congestive heart failure): Avoid significantly positive fluid balance. Diuretics held. Admission and Anticipated Discharge Date Admission Date: May 07, 2020 Subjective No acute events overnight. Brien is very tired this morning. No fevers or chills. He reports feeling weak and being very uncomfortable. He denies significant dyspnea. He denies any abdominal pain. Smith is draining a fair amount of yellow urine. Appetite is poor. No chest pain or palpitations. Review of Systems Review of Systems: All systems reviewed & are unremarkable except as noted in HPI & below Physical Exam Constitutional: + ill appearing and + frail appearing Eyes: + anicteric sclerae injected sclera ENMT: Mouth: + dry oral mucous membranes; no oral mucosal abnormality Neck: normal visual inspection and trachea midline Respiratory: normal respiratory effort Auscultation: + rales Cardiovascular: Rate/Rhythm: + irregularly irregular Heart Sounds: normal S1, normal S2 and + murmur Vessels: + JVD Extremities: no edema Gastrointestinal (Abdomen): Percussion/Palpation: abdomen soft; abdomen nontender Musculoskeletal: Extremities: no cyanosis and no clubbing Skin: normal turgor; no lesions Neurologic: Motor/Sensory: no tremor and no asterixis Psychiatric: Orientation: alert and oriented x 3 Results & Data ([facility]) Vital Signs (Past 12 Hours) Vital Signs Temp Pulse Resp BP Pulse Ox 05/12/20 10:01 111 H 23 103/61 94 05/12/20 10:00 36.9 C 112 H 20 95 05/12/20 09:31 111 H 16 101/63 94 05/12/20 09:30 105 H 20 95 05/12/20 09:01 105 H 16 90/64 L 93 05/12/20 09:00 119 H 16 93 05/12/20 08:31 114 H 15 95/63 L 93 05/12/20 08:30 102 H 16 93 05/12/20 08:01 118 H 13 107/65 93 05/12/20 08:00 107 H 13 113/34 L 94 05/12/20 07:31 121 H 22 101/61 92 05/12/20 07:30 120 H 22 94 05/12/20 07:01 121 H 21 109/76 96 05/12/20 07:00 105 H 23 96 05/12/20 06:31 106 H 19 111/63 97 05/12/20 06:30 108 H 25 H 99 05/12/20 06:02 107 H 10 L 96 05/12/20 06:01 36.6 C 109 H 12 111/69 95 05/12/20 06:00 111 H 9 L 96 05/12/20 05:31 110 H 11 L 111/67 95 05/12/20 05:01 95 H 7 L 103/66 93 05/12/20 05:00 108 H 8 L 94 05/12/20 04:31 107 H 14 111/63 92 05/12/20 04:01 106 H 8 L 104/69 94 05/12/20 04:00 117 H 10 L 119/39 L 94 05/12/20 03:31 100 H 12 101/72 94 05/12/20 03:30 108 H 10 L 95 05/12/20 03:01 104 H 5 L 95/58 L 94 05/12/20 03:00 111 H 8 L 95 05/12/20 02:31 100 H 10 L 93/59 L 93 05/12/20 02:30 105 H 10 L 93 05/12/20 02:23 108 H 14 94 05/12/20 02:01 106 H 9 L 101/61 94 05/12/20 02:00 101 H 16 94 05/12/20 01:31 111 H 7 L 94/61 L 93 05/12/20 01:30 89 3 L 94 05/12/20 01:01 98 H 9 L 93/67 L 94 05/12/20 01:00 110 H 13 94 05/12/20 00:31 108 H 8 L 88/57 L 93 05/12/20 00:30 108 H 11 L 94 05/12/20 00:01 91 H 6 L 94/59 L 92 05/12/20 00:00 106 H 10 L 89/34 L 93 05/11/20 23:31 110 H 7 L 91/57 L 92 05/11/20 23:30 105 H 4 L 92 05/11/20 23:01 110 H 5 L 88/55 L 92 05/11/20 23:00 101 H 4 L 93 Laboratory Results Laboratory Results - last 24 hr 05/12/20 05/12/20 04:43 04:43 WBC 10.46 RBC 3.67 L Hgb 13.0 L Hct 36.8 L MCV 100.3 H MCH 35.4 H MCHC 35.3 RDW Std Deviation 51.2 H RDW Coeff of Cathy 14.1 Plt Count 174 MPV 11.3 H Immature Gran % (Auto) 0.3 Neut % (Auto) 75.4 Lymph % (Auto) 15.3 [place] % (Auto) 7.4 Eos % (Auto) 1.5 Baso % (Auto) 0.1 Neut # (Auto) 7.89 H Lymph # (Auto) 1.60 [place] # (Auto) 0.77 H Eos # (Auto) 0.16 Baso # (Auto) 0.01 Immature Gran # (Auto) 0.03 H Sodium 132 L Potassium 3.5 Chloride 101 Carbon Dioxide 16 L Anion Gap 15.0 H BUN 111 H Creatinine 4.73 H* Est Cr Clr Drug Dosing 11.0 Est GFR ( Amer) 11.9 Est GFR (Non-Af Amer) 10.3 BUN/Creatinine Ratio 23.6 H Glucose 108 H Calcium 7.8 L Phosphorus 6.2 H Magnesium 2.2 PG Care Time/CCT Total # of Minutes Spent Total Time Spent with Patient: Total time spent is greater than 50% in coordination of care (as documented) at patient's floor/unit and/or counseling patient: Coding Level of Care Code 76347 Subseq Hosp Care Lvl 3 Diagnoses DEANGELO (acute kidney injury) N17.9 CKD (chronic kidney disease), stage IV N18.4 Hypotension I95.9 Hypotension type: unspecified hypotension type Chronic diastolic CHF (congestive heart failure) I50.32 (1) Hypotension Hypotension type: unspecified hypotension type Qualified Code(s): I95.9 - Hypotension, unspecified
[2020-05-12] MEDS: PANTOprazole 40 MG in SYRINGE 0 ML IV SCH (11:00)
[2020-05-12] MEDS ORDERED: HYDROmorphone INJ 0.5 MG/0.5 ML SYR IV STA (12:37)
--- NOTE | 2020-05-12 13:56 | Palliative Care Progress Note ---
Date of Service May 12, 2020 Assessment & Plan (1) Goals of care, counseling/discussion: -I met with the patient in room 107 after discussing with Tire Repairman, Dr. Wolf. -The patient was markedly different than he was yesterday, more lethargic, although was reported to be awake and oriented this morning, just more 'sleepy'. He did receive a low dose of Dilaudid. -The patients , Nohemy, three adult children were at the bedside, along with two grandchildren. We discussed his renal function and blood pressure requiring inotropic support, along with overall goals of care. -We discussed the likelihood that he is unable to sustain life without the inotropic support or tolerate dialysis. Even if he pursued CRRT, its likely his prognosis would be the same. -I reiterated with the family that yesterday, he explained that he was comfortable with the dying process. -The family has decided they would like to transition the patient to full comfort measures only, knowing he will likely pass in hours to a few days. -I explained that sometimes there is a moment of clarity once a patient starts to receive morphine. Encouraged the family to embrace those moments and not second guess a transition. -When we can not promise to fix him, we can promise to keep him comfortable. -I D/C all non comfort focused medications;including antibiotics, no further blood draws, and comfort medications ordered, including Morphine. -The patient is on Levophed and will titrate down as he starts to have Morphine administered. -Kitchen contacted for bereavement tray. Encouraged them to contact any family that would want to be here, or phone those that couldn't. -Likely patient has hours to days of life expectancy. Hopeful to have patient remain in ICU once drip is off, at least for a few hours if possible, to avoid him being transferred and pass in route. -PPS: 20% (2) CKD (chronic kidney disease), stage IV: (3) Atrial fibrillation: (4) Hypotension: (5) Common bile duct filling defect, non-specific: (6) History of CHF (congestive heart failure): Admission and Anticipated Discharge Date Admission Date: May 07, 2020 Subjective No acute events overnight. Brien is very tired this morning. No fevers or chills. He reports feeling weak and being very uncomfortable. He denies significant dyspnea. He denies any abdominal pain. Smith is draining a fair a mount of yellow urine. Appetite is poor. No chest pain or palpitations. Review of Systems Review of Systems: Unobtainable due to reduced consciousness Physical Exam Constitutional: well developed, cooperative and comfortable Neck: trachea midline, no thyromegaly Respiratory: normal respiratory effort; no respiratory distress Auscultation: + diminished lung sounds Cardiovascular: Rate/Rhythm: + tachycardic and + irregularly irregular Heart Sounds: normal S1 and normal S2 Extremities: normal capillary refill; no edema Gastrointestinal (Abdomen): normal bowel sounds, soft, nontender, no hepatosplenomegaly Skin: no rashes, warm and dry + pallor Psychiatric: A+Ox3, euthymic affect Results & Data ([facility]) Vital Signs (Past 12 Hours) Vital Signs Temp Pulse Resp BP Pulse Ox 05/12/20 12:00 36.9 C 20 05/12/20 10:01 111 H 23 103/61 94 05/12/20 10:00 36.9 C 112 H 20 95 05/12/20 09:31 111 H 16 101/63 94 05/12/20 09:30 105 H 20 95 05/12/20 09:01 105 H 16 90/64 L 93 05/12/20 09:00 119 H 16 93 05/12/20 08:31 114 H 15 95/63 L 93 05/12/20 08:30 102 H 16 93 05/12/20 08:01 118 H 13 107/65 93 05/12/20 08:00 107 H 13 113/34 L 94 05/12/20 07:31 121 H 22 101/61 92 05/12/20 07:30 120 H 22 94 05/12/20 07:01 121 H 21 109/76 96 05/12/20 07:00 105 H 23 96 05/12/20 06:31 106 H 19 111/63 97 05/12/20 06:30 108 H 25 H 99 05/12/20 06:02 107 H 10 L 96 05/12/20 06:01 36.6 C 109 H 12 111/69 95 05/12/20 06:00 111 H 9 L 96 05/12/20 05:31 110 H 11 L 111/67 95 05/12/20 05:01 95 H 7 L 103/66 93 05/12/20 05:00 108 H 8 L 94 05/12/20 04:31 107 H 14 111/63 92 05/12/20 04:01 106 H 8 L 104/69 94 05/12/20 04:00 117 H 10 L 119/39 L 94 05/12/20 03:31 100 H 12 101/72 94 05/12/20 03:30 108 H 10 L 95 05/12/20 03:01 104 H 5 L 95/58 L 94 05/12/20 03:00 111 H 8 L 95 05/12/20 02:31 100 H 10 L 93/59 L 93 05/12/20 02:30 105 H 10 L 93 05/12/20 02:23 108 H 14 94 05/12/20 02:01 106 H 9 L 101/61 94 05/12/20 02:00 101 H 16 94 PG Care Time/CCT Total # of Minutes Spent Total Time Spent with Patient: Total time spent is greater than 50% in coordination of care (as documented) at patient's floor/unit and/or counseling patient: 65 Coding Level of Care Code 42564 Subseq Hosp Care Lvl 3 Diagnoses Goals of care, counseling/discussion Z71.89 CKD (chronic kidney disease), stage IV N18.4 Atrial fibrillation I48.91 Atrial fibrillation type: unspecified Hypotension I95.9 Hypotension type: unspecified hypotension type Common bile duct filling defect, non-specific R93.2 History of CHF (congestive heart failure) Z86.79 Time Spent (min) 65 Time Spent Midlevel Total time spent 65 minutes with > 50% of that time spent assessing the patient, discussing goals of care and symptom management at end of life, along with communicating details of visit with IDT (1) Atrial fibrillation Atrial fibrillation type: unspecified Qualified Code(s): I48.91 - Unspecified atrial fibrillation (2) Hypotension Hypotension type: unspecified hypotension type Qualified Code(s): I95.9 - Hypotension, unspecified
[2020-05-12] MEDS ORDERED: ONDANSETRON INJ 2 MG/ML 2 ML VIAL IV PRN (15:28)
[2020-05-12] MEDS ORDERED: LORazepam 0.5 MG/1 ML VIAL IV PRN (15:28)
[2020-05-12] MEDS ORDERED: GLYCOPYRROLATE 0.2 MG/ML VIAL IV PRN (15:28)
[2020-05-12] MEDS ORDERED: ONDANSETRON 4 MG OD TAB SL PRN (15:28)
[2020-05-12] MEDS ORDERED: ATROPINE SULFATE 1% OP SOLN 2 ML BTL SL PRN (15:28)
[2020-05-12] MEDS ORDERED: LORazepam 0.5 MG TAB PO PRN (15:28)
[2020-05-12] MEDS ORDERED: ACETAMINOPHEN 650 MG SUPP PR PRN (15:28)
[2020-05-12] MEDS: MoRPHine SULFATE 2 MG/ML CARP IV PRN ×4 (15:48→23:51)
--- NOTE | 2020-05-12 23:44 | Hospitalist Progress Note ---
Date of Service May 12, 2020 Assessment & Plan (1) DEANGELO (acute kidney injury): Family decided to transition patient to comfort measure. Will titrate off levophed and transfer patient out of ICU. Family is aware. will stop antibiotics (2) Choledocholithiasis: MRCP shows 11mm CBD filling defect. - Follow LFTs (3) Acute kidney failure: Patient is in acute renal failure, concern over possibility of ATN. now making urine. will continue to monitor (4) Hypotension: Blood pressure was low (90/50s) on admission, and even lower overnight. - Admission team felt it was hypovolemia and medications. - B/P remains low once levophed has been stopped. (5) Chronic renal disease, stage III: Baseline Cr ~2.3 - 3.0, eGFR 20. - At baseline presently, though on the higher end. - will no longer monitor Cr (6) Chronic diastolic CHF (congestive heart failure): Echo on 05/08 showed EF 65 - 70%. Follows with Dr. Lemons in the clinic. - Hold Lasix - Hold losartan - Hold ASA for possible surgery (7) Obstructive sleep apnea: CPAP HS (8) Depression with anxiety: - Discontinue citalopram and trazodone (9) DVT prophylaxis: SCDs - Low DVT risk per admission calculator & in case he needs surgery Admission and Anticipated Discharge Date Admission Date: May 07, 2020 Subjective Patient appears to be resting comfortably with family. Review of Systems Review of Systems: Unobtainable due to cognitive status Physical Exam Physical Exam: Constitutional: WD/WN, vitals as above, does not appear uncomfortable. Respiratory: not having agonal breaths Results & Data Results & Data ([facility]) Vital Signs (Past 12 Hours) Vital Signs Temp Pulse Resp BP Pulse Ox 05/12/20 23:36 12 05/12/20 18:05 101 H 8 L 56/38 L 92 05/12/20 18:00 110 H 10 L 94 05/12/20 17:05 100 H 23 75/52 L 93 05/12/20 17:00 36.6 C 107 H 26 H 93 05/12/20 16:56 101 H 22 87/49 L 94 05/12/20 16:02 101 H 22 93/59 L 94 05/12/20 16:00 106 H 24 94 05/12/20 15:32 106 H 26 H 110/65 95 05/12/20 15:03 108 H 20 94 05/12/20 15:02 113 H 21 88/57 L 95 05/12/20 15:00 110 H 24 94 05/12/20 14:32 106 H 20 97/59 L 95 05/12/20 14:30 107 H 18 95 05/12/20 14:02 110 H 25 H 97/53 L 94 05/12/20 14:00 36.7 C 108 H 20 94 05/12/20 13:31 109 H 15 93/61 L 94 05/12/20 13:30 113 H 22 94 05/12/20 13:02 105 H 16 71/51 L 93 05/12/20 13:00 36.8 C 109 H 20 93 05/12/20 12:32 118 H 20 91/56 L 95 05/12/20 12:30 112 H 21 94 05/12/20 12:01 106 H 18 97/59 L 96 05/12/20 12:00 36.9 C 105 H 17 96 PG Care Time/CCT Total # of Minutes Spent Total Time Spent with Patient: Total time spent is greater than 50% in coordination of care (as documented) at patient's floor/unit and/or counseling patient: Coding Level of Care Code 70443 Subseq Hosp Care Lvl 2 Diagnoses DEANGELO (acute kidney injury) N17.9 Choledocholithiasis K80.50 Acute kidney failure N17.9 Acute renal failure type: unspecified Hypotension I95.9 Hypotension type: unspecified hypotension type Chronic renal disease, stage III N18.3 Chronic diastolic CHF (congestive heart failure) I50.32 Obstructive sleep apnea G47.33 Depression with anxiety F41.8 DVT prophylaxis Z29.9 Time Spent (min) 25 (1) Acute kidney failure Acute renal failure type: unspecified Qualified Code(s): N17.9 - Acute kidney failure, unspecified (2) Hypotension Hypotension type: unspecified hypotension type Qualified Code(s): I95.9 - Hypotension, unspecified
[2020-05-13] MEDS: NOREPINEPHRINE BIT INJ 8 MG in DEXTROSE 5% 500 ML IV SCH (00:15)
[2020-05-13] MEDS: MoRPHine SULFATE 2 MG/ML CARP IV PRN ×5 (01:48→11:37)
[2020-05-13] MEDS ORDERED: MoRPHine SULF/NSS 250 MG/250 ML BTL IV SCH (11:15)
--- NOTE | 2020-05-13 23:45 | Hospitalist Progress Note ---
Date of Service May 13, 2020 Assessment & Plan (1) DEANGELO (acute kidney injury): Family decided to transition patient to comfort measure on 05/12 Patient now on med/surg stopped antibiotics (2) Choledocholithiasis: MRCP shows 11mm CBD filling defect. - Follow LFTs (3) Acute kidney failure: Patient is in acute renal failure, concern over possibility of ATN. now making urine. will continue to monitor (4) Hypotension: Blood pressure was low (90/50s) on admission, and even lower overnight. - Admission team felt it was hypovolemia and medications. - B/P remains low once levophed has been stopped. (5) Chronic renal disease, stage III: Baseline Cr ~2.3 - 3.0, eGFR 20. - At baseline presently, though on the higher end. - will no longer monitor Cr (6) Chronic diastolic CHF (congestive heart failure): Echo on 05/08 showed EF 65 - 70%. Follows with Dr. Lemons in the clinic. - Hold Lasix - Hold losartan - Hold ASA for possible surgery (7) Obstructive sleep apnea: CPAP HS (8) Depression with anxiety: - Discontinue citalopram and trazodone (9) DVT prophylaxis: SCDs - Low DVT risk per admission calculator & in case he needs surgery Admission and Anticipated Discharge Date Admission Date: May 07, 2020 Subjective Patient resting with family at bedside praying. Review of Systems Review of Systems: All systems reviewed & are unremarkable except as noted in HPI & below Physical Exam Physical Exam: Patient resting comfortably. PG Care Time/CCT Total # of Minutes Spent Total Time Spent with Patient: Total time spent is greater than 50% in coordination of care (as documented) at patient's floor/unit and/or counseling patient: Coding Level of Care Code 26228 Subseq Hosp Care Lvl 1 Diagnoses DEANGELO (acute kidney injury) N17.9 Choledocholithiasis K80.50 Acute kidney failure N17.9 Acute renal failure type: unspecified Hypotension I95.9 Hypotension type: unspecified hypotension type Chronic renal disease, stage III N18.3 Chronic diastolic CHF (congestive heart failure) I50.32 Obstructive sleep apnea G47.33 Depression with anxiety F41.8 DVT prophylaxis Z29.9 (1) Acute kidney failure Acute renal failure type: unspecified Qualified Code(s): N17.9 - Acute kidney failure, unspecified (2) Hypotension Hypotension type: unspecified hypotension type Qualified Code(s): I95.9 - Hypotension, unspecified
--- NOTE | 2020-05-14 12:47 | Death Pronouncement Note ---
Date of Service May 14, 2020 Pronouncement Note Admission Date Admission Date: May 07, 2020 Contributing Factors (1) DEANGELO (acute kidney injury): (2) Choledocholithiasis: (3) Acute kidney failure: (4) Hypotension: (5) Chronic renal disease, stage III: (6) Chronic diastolic CHF (congestive heart failure): (7) Obstructive sleep apnea: (8) Depression with anxiety: (9) DVT prophylaxis: Additional Data Attending physician: Alexandra Romero DO Supervising Physician Co-Signing Physician Notes Called by nursing for pt demise. TOD 12:06p Multiple family members present at bedside. not present, but family states she was on her way to hospital PE reveals no heart or lung sounds, radial pulse absent Family is unsure about homes, working on this and will alert nursing once status is known Coding Level of Care Code D/C Day Management >30 mins Diagnoses DEANGELO (acute kidney injury) N17.9 Choledocholithiasis K80.50 Acute kidney failure N17.9 Acute renal failure type: unspecified Hypotension I95.9 Hypotension type: unspecified hypotension type Chronic renal disease, stage III N18.3 Chronic diastolic CHF (congestive heart failure) I50.32 Obstructive sleep apnea G47.33 Depression with anxiety F41.8 DVT prophylaxis Z29.9
--- NOTE | 2020-05-14 12:54 | Discharge Summary ---
Date of Service May 14, 2020 Admission HPI Per Admitting Provider Brien Garay is an 89-year-old male with a notable past medical history of diastolic heart failure (last EF 50-55% in 06/2019), CKD stage IV (Cr 2.2-2.4 mg/dL), LETHA c/w CPAP, and depression who presented to the emergency department for evaluation of right flank pain at the advice of his client engagement specialist. On history, the patient reports that his right flank pain has been going on for several weeks now and has gotten worse over this past week. He says that it limited his ability to walk and participate in daily activities. It is worse with ambulation and gets better with lying down. At the time of his appointment this morning, there was thought that this might be a kidney stoneof note, he has no history of kidney stones in the past. Aside from perhaps decreased urine output with known prostatomegaly, he denies any urinary frequency, urgency or dysuria. At the time of our discussion, he rated his pain at a 7 out of 10 in intensity described it is dull and subtle. Further, the patient also reports th at over the last 4 months he has had a 20 pound unintentional weight loss that has been associated with a loss of appetite. He denies any nausea, vomiting, diarrhea, fevers, chills, night sweats. He denies any sort of chest pain or palpitations, but does endorse that his shortness of breath is perhaps gotten a little worse lately. His reports that he was up all night approximately 2 nights ago with more dyspnea than usual as well as a cough. He uses a CPAP during sleep. In the ED, he was found to be afebrile, tachycardic, and hypotensive with lowest systolic pressures down to the mid 70s. He received a total of 1L of normal salnie, in addition to IV morphine and Zofran. Labs were significant for hyponatremia at 132, BUN and creatinine at 90 and 2.66, respectivelywhich are relatively normal for the patientand alkaline phosphatase elevated to 163, but otherwise normal LFTs, bilirubin, and lipase. CBC did not demonstrate an elevated white count or signs of anemia. Urinalysis was unremarkable. Chest x- ray did not show any signs of fluid overload or any acute processes. Noncontrast CT of the abdomen and pelvis was obtained, which did show a distended gallbladder without any obvious cholelithiasis, but also a small calcification in the distal dilated common bile duct that raise radiographic concern for choledocholithiasis. This scan was also significant for prostat omegaly with evidence of chronic bladder outlet obstruction, as well as potential loosening of bilateral T12 screws. Further, an EKG was obtained and when compared to previous EKGs, was suggestive of new atrial fibrillation. Principal Diagnosis choledicholithiasis Discharge Exam Respiratory absent lung sounds Cardiovascular absent heart sounds, absent radial pulse Discharge Data Allergies Allergy/AdvReac Type Severity Reaction Status Date / Time alfuzosin [From Uroxatral] Allergy PENILE Verified 05/07/20 19:28 SWELLING gabapentin [From Neurontin] AdvReac Severe fluid Verified 05/07/20 14:15 retention latex AdvReac Unknown RED PLUMMER Verified 05/07/20 14:15 ON SKIN Consultations 05/07/20 17:04 ED Decision to Admit Stat 05/07/20 19:51 Consult Gastroenterology Routine 05/07/20 20:32 Consult General Surgery Routine 05/07/20 20:55 Consult Cardiology Routine Consult Orthopedic Surgery Routine 05/09/20 10:49 Consult Nephrology Routine 05/10/20 18:33 Consult Density Control Puncher Routine 05/10/20 22:06 Consult Case Management - Discharge Planning Routine 05/11/20 10:14 Consult Palliative Care Routine 05/12/20 15:32 Consult Case Management - Discharge Planning Routine Consult Palliative Care Routine Procedures Performed Operation Date: 05/08/20 10:20 Actual Procedures p Endoscopic Retrograde Cholangiopancreatogram(Not Applicable) - Nunu Marshall s Endoscopic Ultrasonography Upper(Not Applicable) - Nunu Marshall Ordered Studies 05/07/20 15:07 CT abd pelvis wo con Stat 05/07/20 19:41 MR MRCP Routine 05/08/20 14:00 FL ERCP biliary ductal Routine 05/08/20 16:02 US upper EUS PACS images Routine 05/10/20 19:21 US point of care ultrasound Urgent Hospital Course (1) DEANGELO (acute kidney injury): Family decided to transition patient to comfort measure on 05/12 stopped antibiotics See palliative care notes for details (2) Choledocholithiasis: MRCP shows 11mm CBD filling defect. (3) Hypotension: Blood pressure was low (90/50s) on admission, and even lower overnight. - Admission team felt it was hypovolemia and medications. Pt requiring ongoing pressor support, which was one of the several reasons for m oving to comfort care Total Time Total Time Spent Total Time Spent (In Minutes): >30 Total Time Includes: Examination of the Patient, Discharge Planning, Medication Reconciliation, Communication With Other Providers and Other Discharge Plan Discharge Items Patient Disposition: Discharge Diagnosis: Cardiac arrest 2/2 hypotension, acute renal failure Addtl Attending Provider Instructions: n/a Coding Level of Care Code D/C Day Management >30 mins Diagnoses DEANGELO (acute kidney injury) N17.9 Choledocholithiasis K80.50 Hypotension I95.9 Hypotension type: unspecified hypotension type
== END 2020-05-14 14:21 | disposition expired | DRG 444 ==
LOC: ED 14:48 → SUATTDRO 18:42 → 2S 18:42 → 1E 05-10 19:02 → 3W 05-12 21:34